=== PATIENT | male | born 1945 ===

== ENCOUNTER 2018-03-15 10:58 | Day surgery (SDC) | payer MEDICARE ==
[2018-02-03 12:38] VITALS: BMI 26.6
[2018-03-15] MEDS ORDERED: HEPARIN-NS 5,000 UNITS/500 ML 5,000 UNIT/500 ML BAG IV ONE (12:34)
[2018-03-15] MEDS ORDERED: ceFAZolin 1 gm FROZEN Premix 2 GM/100 ML ML IVPB ONE (12:42)
[2018-03-15] MEDS ORDERED: Propofol 10 mg/ml Inj (20 ML) ONE ×2 (14:01→14:33)
[2018-03-15] MEDS ORDERED: Midazolam 2 MG/2 ML VIAL ONE (14:01)
[2018-03-15] MEDS ORDERED: Thrombin Topical 20,000 Intl Units Spray Kit TOP ONE (14:44)
[2018-03-15] MEDS ORDERED: Oxycodone/Acetaminophen 5/325 mg Tab PO PRN (15:50)
--- NOTE | 2018-03-15 15:54 | PCM.SURG1 ---
Surgeon's Initial Post Op Note - Surgeon's Notes Surgeon: Dr. Hartman Mission Planner: Dr. Locke PGY3 Type of Anesthesia: General Endo Pre-Operative Diagnosis: ESRD Operative Findings: See operative dictation Post-Operative Diagnosis: ESRD Operation Performed: Brachiobasilic AVF Formation Specimen/Specimens Removed: none Estimated Blood Loss: EBL {In ML}: 30 Blood Products Given: N/A Drains Used: No Drains Post-Op Condition: Good Date of Surgery/Procedure: 03/15/18 Time of Surgery/Procedure: 15:54
[2018-03-15] MEDS ORDERED: HYDROmorphone 0.5 mg/0.5 ml ISec IVP PRN (15:59)
[2018-03-15] MEDS ORDERED: Lactated Ringer's 1,000 ML IV SCH (16:00)
[2018-03-15] MEDS ORDERED: Sodium Chloride 0.9% 1,000 ML IV SCH (16:45)
[2018-03-15 17:46] VITALS: PULSE 75; RESP 18; TEMP 97.8; O2SAT 96
[2018-03-15 18:49] VITALS: BP 153/69
--- NOTE | 2018-03-16 02:38 | OP ---
PROCEDURE DATE: 03/15/2018 PREOPERATIVE DIAGNOSIS: Renal failure. POSTOPERATIVE DIAGNOSIS: Renal failure. PROCEDURE CARRIED OUT: Arteriovenous fistula, brachiobasilic, left elbow. SURGEON: Nba Hartman Jr., MD GLASS FURNACE OPERATOR: Rogerio Locke DO ANESTHESIOLOGIST: Mr. Simon. INDICATIONS: The patient is an older middle-aged man with renal insufficiency, presently dialyzes with the use of a left jugular vein catheter who requires permanent access. OPERATIVE FINDINGS: Preoperative vein mapping did not reveal any good cephalic veins in either arm. It will be suitable for creation of the fistula. In addition, the basilic vein was the best vein. The basilic vein was dissected out and anastomosed and then spatulated in an end-to-side fashion to the adjacent brachial artery. At the end of the procedure, there was excellent flow to the fistula. There is a palpable pulse at the wrist. That was due to the patient's body habitus. It is likely that this will require mobilization with superficialization in the future. The anastomosis was carried out using loupe magnification and heparin anticoagulation. At the end of the procedure, there was a good thrill and a palpable pulse at the wrist. Blood loss to the procedure was 25 mL. After we completed the operation initially, there was still some bleeding from the wound which required reopening of the incision and reinspection at which time apparently a venous bleeder was found which was ligated from the subcutaneous tissues. Wound was then reclosed and the procedure was terminated. Operation carried out, arteriovenous fistula, brachiobasilic, left elbow. Nba Hartman Jr., MD cc: Dr. Dileep Mas, [address] [place] [address].
== END 2018-03-15 18:40 | disposition home or self-care (01) ==
LOC: C.SDS 10:58
PROVIDERS: ATTEND Surgery Vascular Surgery
DX: N18.6 End stage renal disease (principal); E03.9 Hypothyroidism, unspecified
CPT/HCPCS: 36821; J0690; J1170; J1642; J1644; J2250; J2704; J3010

== ENCOUNTER 2018-04-07 11:32 | Inpatient (IN) | payer MEDICARE ==
[2018-04-07 11:32] VITALS: BMI 26.6
[2018-04-07 12:51] LABS: BASO # 0.1 K/uL (0.0-0.2); BASO % 0.8 % (0.0-2.0); EOS # 0.3 K/uL (0.0-0.7); EOS % 3.8 % (0.0-4.0); HEMOGLOBIN 10.3 g/dL (12.0-18.0); LYMPH # 0.7 K/uL (1.0-4.3); LYMPH % 8.8 % (20.0-40.0); MEAN CELL VOLUME 92.9 fL (80.0-94.0); MEAN CORPUSCULAR HEMOGLOBIN 31.1 pg (27.0-31.0); MEAN CORPUSCULAR HGB CONC 33.5 g/dL (33.0-37.0); MEAN PLATELET VOLUME 7.7 fL (7.2-11.7); MONO % 13.7 % (0.0-10.0); NEUT # 5.4 K/uL (1.8-7.0); NEUT % 72.9 % (50.0-75.0); PLATELET COUNT 153 K/uL (130-400); RED CELL DISTRIBUTION WIDTH 17.1 % (11.5-14.5); WHITE BLOOD COUNT 7.4 K/uL (4.8-10.8)
--- NOTE | 2018-04-07 13:04 | C.PDOC ---
History Of Present Illness 72 y/o male,w/PMHx of ESRD, Chronic Kidney Disease, hypercholesterolemia, and HTN, presents to the ER complaining of left arm and hand swelling s/p surgery on 03/15/18. Patient states that he had AV Fistula surgery performed by Dr.Mc Jimenez. Denies having fever,chills, CP, and SOB. Time Seen by Provider: 04/07/18 12:02 Chief Complaint (Nursing): Upper Extremity Problem/Injury History Per: Patient History/Exam Limitations: no limitations Onset/Duration Of Symptoms: Days Current Symptoms Are (Timing): Still Present Severity: Moderate Past Medical History Reviewed: Historical Data, Nursing Documentation, Vital Signs Vital Signs: Last Vital Signs Temp 98.1 F 04/07/18 11:35 Pulse 64 04/07/18 11:35 Resp 16 04/07/18 11:35 BP 155/76 H 04/07/18 11:35 Pulse Ox 100 04/07/18 11:35 - Medical History PMH: HTN, Hypothyroidism, End Stage Renal Disease, Chronic Kidney Disease, Seizures Other Surgeries: Hx of surgeries Family History: States: No Known Family Hx - Social History Hx Alcohol Use: No Hx Substance Use: No - Immunization History Hx Tetanus Toxoid Vaccination: No Hx Influenza Vaccination: Yes Hx Pneumococcal Vaccination: Yes Review Of Systems Except As Marked, All Systems Reviewed And Found Negative. Constitutional: Negative for: Fever, Chills Cardiovascular: Negative for: Chest Pain Respiratory: Negative for: Shortness of Breath Musculoskeletal: Positive for: Other (left arm swelling) Physical Exam - Physical Exam Additional Physical Exam Comments: Constitutional: No acute distress. Head: Normocephalic. Atraumatic. Eyes: PERRL. ENT: Moist mucous membranes. Neck: Supple. Cardiovascular: Regular rate. Radial pulse 2+ bilaterally. Chest: No tenderness. Respiratory: Clear to auscultation bilaterally. GI: Soft. Nontender. Nondistended. Back: No CVA tenderness. Musculoskeletal: AV Fistula to left arm. Diffuse edema to left arm and hand. Tenderness over left antecubital fossa. Skin: No rash. Neurologic: Alert, no focal deficit. 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 Patient at high risk of subclavian DVT given common location for upper extremity DVT and has catheter in area. Dr. Steph Catherine accepts patient to his service. Initial dose lovenox administered. Disposition - Disposition Disposition: HOSPITALIZED Disposition Time: 14:30 Condition: GUARDED - Clinical Impression Clinical Impression: Edema of upper extremity - Scribe Statement The provider has reviewed the documentation as recorded by the Annie Zuñiga Provider Attestation: All medical record entries made by the Zoilaibbeatriz were at my direction and personally dictated by me. I have reviewed the chart and agree that the record accurately reflects my personal performance of the history, physical exam, medical decision making, and the department course for this patient. I have also personally directed, reviewed, and agree with the discharge instructions and disposition.
[2018-04-07 13:10] LABS: ANISOCYTOSIS SLIGHT; BASOPHIL 1 % (0-2); HYPOCHROMIC SLIGHT; LYMPHOCYTE 12 % (20-40); MONOCYTE 16 % (0-10); NEUTROPHIL 71 % (50-75); OVALOCYTES SLIGHT; PLATELET ESTIMATE NORMAL (NORMAL); POIKILOCYTOSIS SLIGHT; POLYCHROMIC SLIGHT; TOTAL CELLS COUNTED 100
[2018-04-07 13:11] LABS: TARGET CELLS SLIGHT; TEARDROP CELLS SLIGHT
[2018-04-07 13:46] LABS: ALB/GLOB RATIO 1.3 (1.0-2.1); ALBUMIN 4.4 g/dL (3.5-5.0); CALCIUM 7.6 mg/dl (8.6-10.4)
[2018-04-07] MEDS ORDERED: Enoxaparin 80 mg Syringe SC STA (14:36)
[2018-04-07] MEDS ORDERED: Enoxaparin 80 mg Syringe ONE (14:44)
--- NOTE | 2018-04-07 18:56 | CP.PCM.HP ---
Past Patient History - Infectious Disease Hx of Infectious Diseases: None - Past Medical History & Family History Past Medical History?: Yes - Past Social History Smoking Status: Never Smoked - CARDIAC Hx Hypertension: Yes - PULMONARY Hx Respiratory Disorders: No - NEUROLOGICAL Hx Seizures: Yes - RENAL Hx Chronic Kidney Disease: Yes - ENDOCRINE/METABOLIC Hx Hypothyroidism: Yes - INTEGUMENTARY Hx Dermatological Problems: No - MUSCULOSKELETAL/RHEUMATOLOGICAL Hx Musculoskeletal Disorders: No - GASTROINTESTINAL Hx Gastrointestinal Disorders: No - PSYCHIATRIC Hx Substance Use: No - SURGICAL HISTORY Hx Surgeries: Yes Other/Comment: Stefano Cath, left upper anterior chest. Non-functioning AV Fistula, right a/c - ANESTHESIA Hx Anesthesia: Yes Hx Anesthesia Reactions: No Meds Allergies/Adverse Reactions: Allergies Allergy/AdvReac Type Severity Reaction Status Date / Time No Known Allergies Allergy Verified 04/07/18 11:34 Physical Exam - Constitutional Appears: Well - Head Exam Head Exam: ATRAUMATIC, NORMAL INSPECTION, NORMOCEPHALIC - Eye Exam Eye Exam: EOMI, Normal appearance, PERRL Pupil Exam: NORMAL ACCOMODATION, PERRL - ENT Exam ENT Exam: Mucous Membranes Moist, Normal Exam - Neck Exam Neck exam: Positive for: Normal Inspection - Respiratory Exam Respiratory Exam: Decreased Breath Sounds - Cardiovascular Exam Cardiovascular Exam: REGULAR RHYTHM, +S1, +S2 - GI/Abdominal Exam GI & Abdominal Exam: Diminished Bowel Sounds, Soft - Rectal Exam Rectal Exam: Deferred Results - Vital Signs Recent Vital Signs: Last Vital Signs Temp 98.2 F 04/07/18 16:34 Pulse 60 04/07/18 16:34 Resp 20 04/07/18 16:34 BP 155/78 H 04/07/18 16:34 Pulse Ox 100 04/07/18 16:34 - Labs Result Diagrams: 04/07/18 12:43 04/07/18 12:43 Labs: Laboratory Results - last 24 hr 04/07/18 04/07/18 12:43 12:43 WBC 7.4 RBC 3.30 L Hgb 10.3 L Hct 30.6 L MCV 92.9 MCH 31.1 H MCHC 33.5 RDW 17.1 H Plt Count 153 MPV 7.7 Neut % (Auto) 72.9 Lymph % (Auto) 8.8 L [place] % (Auto) 13.7 H Eos % (Auto) 3.8 Baso % (Auto) 0.8 Neut # (Auto) 5.4 Lymph # (Auto) 0.7 L [place] # (Auto) 1.0 H Eos # (Auto) 0.3 Baso # (Auto) 0.1 Neutrophils % (Manual) 71 Lymphocytes % (Manual) 12 L Monocytes % (Manual) 16 H Basophils % (Manual) 1 Platelet Estimate Normal Polychromasia Slight Hypochromasia (manual) Slight Poikilocytosis (manual Slight Anisocytosis (manual) Slight Macrocytosis (manual) Slight Target Cells Slight Tear Drop Cells Slight Ovalocytes Slight Sodium 137 Potassium 5.9 H Chloride 97 L Carbon Dioxide 24 Anion Gap 22 H BUN 57 H Creatinine 9.0 H* Est GFR ( Amer) 7 Est GFR (Non-Af Amer) 6 Random Glucose 174 H Calcium 7.6 L Total Bilirubin 0.7 AST 30 ALT 24 Alkaline Phosphatase 116 Total Protein 8.0 Albumin 4.4 Globulin 3.5 Albumin/Globulin Ratio 1.3
--- NOTE | 2018-04-07 21:44 | CP.PCM.CON ---
History of Present Illness - History of Present Illness History of Present Illness: Vascular Surgery Consult note. Dr. Hartman service 72yo M with PMHx of ESRD, CKD, HTN, HLD, hypothyroidism, Seizures here for evaluation of left upper extremity swelling. Patient is well known to our surgical service. Patient obtained a left brachiobasilic AVF on 03/15/18. Patient has a history of right IJ permacath which has been removed. Currently, patient has a left IJ permacath and he has been getting dialysed via that access . He states that he has been having swelling in his left upper extremity which has mildly gotten worse over the past week. He denies any pain. No F/C. No CP/SOB. No abd pain. No N/V/D. no other complaints. PMHx: ESRD on HD, CKD, HTN, HLD, Hypothyroidism, seizures PSHx: Left brachiobasilic AVF (03/15), R IJ permacath (removed), L IJ permacath Family Hx: non-contributory Social Hx: Denies ETOH, denies illicit drugs NKDA Review of Systems - Review of Systems All systems: reviewed and no additional remarkable complaints except - Constitutional Constitutional: absent: Chills, Fever - EENT Eyes: absent: Blurred Vision - Cardiovascular Cardiovascular: absent: Chest Pain, Dyspnea - Respiratory Respiratory: absent: Cough, Dyspnea - Gastrointestinal Gastrointestinal: absent: Abdominal Pain, Diarrhea, Nausea, Vomiting - Genitourinary Genitourinary: absent: Dysuria - Musculoskeletal Additional comments: left upper extremity swelling - Integumentary Integumentary: Swelling Past Patient History - Infectious Disease Hx of Infectious Diseases: None - Past Medical History & Family History Past Medical History?: Yes Past Family History: Reviewed and not pertinent - Past Social History Smoking Status: Never Smoked - CARDIAC Hx Hypertension: Yes - PULMONARY Hx Respiratory Disorders: No - NEUROLOGICAL Hx Seizures: Yes - RENAL Date of Last Dialysis Treatment: 04/06/18 - ENDOCRINE/METABOLIC Hx Hypothyroidism: Yes - INTEGUMENTARY Hx Dermatological Problems: No - MUSCULOSKELETAL/RHEUMATOLOGICAL Hx Falls: No - GASTROINTESTINAL Hx Gastrointestinal Disorders: No - PSYCHIATRIC Hx Substance Use: No - SURGICAL HISTORY Hx Surgeries: Yes Other/Comment: Stefano Cath, left upper anterior chest. Non-functioning AV Fistula, right a/c - ANESTHESIA Hx Anesthesia: Yes Hx Anesthesia Reactions: No Meds Allergies/Adverse Reactions: Allergies Allergy/AdvReac Type Severity Reaction Status Date / Time No Known Allergies Allergy Verified 04/07/18 11:34 - Medications Medications: Current Medications Apixaban (Eliquis) 2.5 mg PO BID [facility] Calcium Acetate (Phoslo) 667 mg PO TIDCC [facility] Last Admin: 04/07/18 17:55 Dose: 667 mg Dorzolamide HCl (Trusopt) 0 ml OU HS [facility] Hydralazine HCl (Apresoline) 50 mg PO Q6 [facility] Last Admin: 04/07/18 17:55 Dose: 50 mg Levetiracetam (Keppra) 500 mg PO Q12 [facility] Levothyroxine Sodium (Synthroid) 125 mcg PO DAILY@0630 [facility] Timolol Maleate (Timoptic 0.5% Oph Soln) 1 drop OU HS [facility] Physical Exam - Constitutional Appears: Well, Non-toxic, No Acute Distress - Head Exam Head Exam: ATRAUMATIC, NORMAL INSPECTION, NORMOCEPHALIC - Eye Exam Eye Exam: EOMI, Normal appearance - ENT Exam ENT Exam: Mucous Membranes Moist - Respiratory Exam Respiratory Exam: NORMAL BREATHING PATTERN. absent: Accessory Muscle Use, Respiratory Distress - Cardiovascular Exam Cardiovascular Exam: absent: JVD - GI/Abdominal Exam GI & Abdominal Exam: Soft. absent: Distended, Firm, Guarding, Rebound, Rigid, Tenderness - Extremities Exam Additional comments: left upper extremity swelling distal pulses intact good palpable thrill over L AVF - Neurological Exam Neurological exam: Alert, Normal Gait, Oriented x3 - Psychiatric Exam Psychiatric exam: Normal Affect, Normal Mood Results - Vital Signs Recent Vital Signs: Last Vital Signs Temp 98.2 F 04/07/18 16:34 Pulse 60 04/07/18 16:34 Resp 20 04/07/18 16:34 BP 155/78 H 04/07/18 16:34 Pulse Ox 100 04/07/18 16:34 - Labs Result Diagrams: 04/07/18 12:43 04/07/18 12:43 Labs: Laboratory Results - last 24 hr 04/07/18 04/07/18 12:43 12:43 WBC 7.4 RBC 3.30 L Hgb 10.3 L Hct 30.6 L MCV 92.9 MCH 31.1 H MCHC 33.5 RDW 17.1 H Plt Count 153 MPV 7.7 Neut % (Auto) 72.9 Lymph % (Auto) 8.8 L [place] % (Auto) 13.7 H Eos % (Auto) 3.8 Baso % (Auto) 0.8 Neut # (Auto) 5.4 Lymph # (Auto) 0.7 L [place] # (Auto) 1.0 H Eos # (Auto) 0.3 Baso # (Auto) 0.1 Neutrophils % (Manual) 71 Lymphocytes % (Manual) 12 L Monocytes % (Manual) 16 H Basophils % (Manual) 1 Platelet Estimate Normal Polychromasia Slight Hypochromasia (manual) Slight Poikilocytosis (manual Slight Anisocytosis (manual) Slight Macrocytosis (manual) Slight Target Cells Slight Tear Drop Cells Slight Ovalocytes Slight Sodium 137 Potassium 5.9 H Chloride 97 L Carbon Dioxide 24 Anion Gap 22 H BUN 57 H Creatinine 9.0 H* Est GFR ( Amer) 7 Est GFR (Non-Af Amer) 6 Random Glucose 174 H Calcium 7.6 L Total Bilirubin 0.7 AST 30 ALT 24 Alkaline Phosphatase 116 Total Protein 8.0 Albumin 4.4 Globulin 3.5 Albumin/Globulin Ratio 1.3 Assessment & Plan - Assessment and Plan (Free Text) Assessment: 72yo M with ESRD on HD. Here with left arm swelling secondary to venous outflow from the permacath. Plan: - Patient will continue to have swelling until left IJ permacath can be removed - L AVF not mature at this time - No acute surgical intervention warranted at this time Further recs as per Dr. Minnie Jensen PGY2 Surgery
[2018-04-07] MEDS: Dorzolamide 2% Opht Sol 10ml OU SCH (21:48)
[2018-04-08] MEDS: Levothyroxine 125 MCG TAB PO SCH (06:32)
--- NOTE | 2018-04-08 17:44 | CP.PCM.PN ---
Subjective - Date & Time of Evaluation Date of Evaluation: 04/08/18 Time of Evaluation: 08:15 - Subjective Subjective: clinically same Objective - Vital Signs/Intake and Output Vital Signs (last 24 hours): Temp Pulse Resp BP Pulse Ox 97.5 F L 64 20 103/61 99 04/08/18 16:20 04/08/18 16:20 04/08/18 16:20 04/08/18 16:20 04/08/18 16:20 Intake and Output: 04/08/18 04/08/18 06:59 18:59 Intake Total 490 250 Balance 490 250 - Medications Medications: Current Medications Apixaban (Eliquis) 2.5 mg PO BID [facility] Last Admin: 04/08/18 17:43 Dose: 2.5 mg Calcium Acetate (Phoslo) 667 mg PO TIDCC [facility] Last Admin: 04/08/18 17:43 Dose: 667 mg Dorzolamide HCl (Trusopt) 0 ml OU HS [facility] Last Admin: 04/07/18 21:48 Dose: 1 drop Hydralazine HCl (Apresoline) 50 mg PO Q6 [facility] Last Admin: 04/08/18 17:43 Dose: 50 mg Levetiracetam (Keppra) 500 mg PO Q12 [facility] Last Admin: 04/08/18 09:34 Dose: 500 mg Levothyroxine Sodium (Synthroid) 125 mcg PO DAILY@0630 [facility] Last Admin: 04/08/18 06:32 Dose: 125 mcg Morphine Sulfate (Morphine) 1 mg IVP Q6H PRN PRN Reason: Pain, severe (8-10) Last Admin: 04/08/18 09:32 Dose: 1 mg Timolol Maleate (Timoptic 0.5% Ophth Soln) 1 drop OU HS [facility] Last Admin: 04/07/18 21:48 Dose: 1 drop - Labs Labs: 04/07/18 12:43 04/07/18 12:43 - Constitutional Appears: Well - Head Exam Head Exam: ATRAUMATIC, NORMAL INSPECTION, NORMOCEPHALIC - Eye Exam Eye Exam: EOMI, Normal appearance, PERRL Pupil Exam: NORMAL ACCOMODATION, PERRL - ENT Exam ENT Exam: Mucous Membranes Moist, Normal Exam - Neck Exam Neck Exam: Full ROM, Normal Inspection. absent: Lymphadenopathy - Respiratory Exam Respiratory Exam: Decreased Breath Sounds - Cardiovascular Exam Cardiovascular Exam: REGULAR RHYTHM, +S1, +S2 - GI/Abdominal Exam GI & Abdominal Exam: Soft, Diminished Bowel Sounds - Rectal Exam Rectal Exam: Deferred
[2018-04-08] MEDS: Dorzolamide 2% Opht Sol 10ml OU SCH (21:30)
[2018-04-09] MEDS: Levothyroxine 125 MCG TAB PO SCH (06:16)
--- NOTE | 2018-04-09 12:14 | CP.PCM.PN ---
Subjective - Date & Time of Evaluation Date of Evaluation: 04/09/18 Time of Evaluation: 08:15 - Subjective Subjective: clinically same Objective - Vital Signs/Intake and Output Vital Signs (last 24 hours): Temp Pulse Resp BP Pulse Ox 98.2 F 86 20 149/66 99 04/09/18 08:13 04/09/18 11:19 04/09/18 08:13 04/09/18 08:13 04/09/18 11:19 Intake and Output: 04/09/18 04/09/18 06:59 18:59 Intake Total 540 Balance 540 - Medications Medications: Current Medications Apixaban (Eliquis) 2.5 mg PO BID [facility] Last Admin: 04/09/18 10:23 Dose: 2.5 mg Calcium Acetate (Phoslo) 667 mg PO TIDCC [facility] Last Admin: 04/09/18 08:23 Dose: 667 mg Dorzolamide HCl (Trusopt) 0 ml OU [facility] Last Admin: 04/08/18 21:30 Dose: 1 drop Hydralazine HCl (Apresoline) 50 mg PO Q6 [facility] Last Admin: 04/09/18 06:16 Dose: 50 mg Levetiracetam (Keppra) 500 mg PO Q12 [facility] Last Admin: 04/09/18 10:23 Dose: 500 mg Levothyroxine Sodium (Synthroid) 125 mcg PO DAILY@0630 [facility] Last Admin: 04/09/18 06:16 Dose: 125 mcg Morphine Sulfate (Morphine) 1 mg IVP Q6H PRN PRN Reason: Pain, severe (8-10) Last Admin: 04/08/18 09:32 Dose: 1 mg Timolol Maleate (Timoptic 0.5% Ophth Soln) 1 drop OU HS [facility] Last Admin: 04/08/18 21:29 Dose: 1 drop - Labs Labs: 04/07/18 12:43 04/07/18 12:43 - Constitutional Appears: Well - Head Exam Head Exam: ATRAUMATIC, NORMAL INSPECTION, NORMOCEPHALIC - Eye Exam Eye Exam: EOMI, Normal appearance, PERRL Pupil Exam: NORMAL ACCOMODATION, PERRL - ENT Exam ENT Exam: Mucous Membranes Moist, Normal Exam - Neck Exam Neck Exam: Full ROM, Normal Inspection. absent: Lymphadenopathy - Respiratory Exam Respiratory Exam: Decreased Breath Sounds - Cardiovascular Exam Cardiovascular Exam: REGULAR RHYTHM, +S1, +S2 - GI/Abdominal Exam GI & Abdominal Exam: Soft, Diminished Bowel Sounds - Rectal Exam Rectal Exam: Deferred
[2018-04-09] MEDS: Dorzolamide 2% Opht Sol 10ml OU SCH (21:26)
[2018-04-10] MEDS ORDERED: Vancomycin 1 gm/NS 200 ml 1 GM/200 ML BAG IVPB ONE (00:30)
[2018-04-10] MEDS: Levothyroxine 125 MCG TAB PO SCH (05:37)
[2018-04-10] MEDS: Piperacill/Tazo 2.25gm in Dex 2.25 GM/50 ML BAG IVPB SCH ×3 (05:38→21:10)
--- NOTE | 2018-04-10 12:10 | CP.PCM.CON ---
History of Present Illness - History of Present Illness History of Present Illness: 72yo M here for evaluation of left upper extremity swelling. ID consulkted for this Patient obtained a left brachio-basilic AVF on 03/15/18. Patient has a history of right IJ permacath which has been removed. patient has a left IJ permacath and he has been getting dialysed via that access. He states that he has been having swelling in his left upper extremity . He denies any pain. No F/C. No CP/SOB. No abd pain. No N/V/D. no other complaints. PMHx: ESRD on HD, CKD, HTN, HLD, Hypothyroidism, seizures PSHx: Left brachiobasilic AVF (03/15), R IJ permacath (removed), L IJ permacath Family Hx: non-contributory Social Hx: Denies ETOH, denies illicit drugs NKDA Review of Systems - Review of Systems All systems: reviewed and no additional remarkable complaints except - Constitutional Constitutional: As Per HPI - EENT Eyes: absent: As Per HPI, Blind Spots, Blurred Vision, Change in Vision, Decreased Night Vision, Diplopia, Discharge, Dry Eye, Exophthalmos, Floaters, Irritation, Itchy Eyes, Loss of Peripheral Vision, Pain, Photophobia, Requires Corrective Lenses, Sees Flashes, Spots in Vision, Tunnel Vision, Other Visual Disturbances, Loss of Vision, Other Ears: absent: As Per HPI, Decreased Hearing, Ear Discharge, Ear Pain, Tinnitus, Abnormal Hearing, Disequilibrium, Dizziness, Other Nose/Mouth/Throat: absent: As Per HPI, Epistaxis, Nasal Congestion, Nasal Discharge, Nasal Obstruction, Nasal Trauma, Nose Pain, Post Nasal Drip, Sinus Pain, Sinus Pressure, Bleeding Gums, Change in Voice, Dental Pain, Dry Mouth, Dysphagia, Halitosis, Hoarsness, Lip Swelling, Mouth Lesions, Mouth Pain, Odynophagia, Sore Throat, Throat Swelling, Tongue Swelling, Facial Pain, Neck Pain, Neck Mass, Other - Cardiovascular Cardiovascular: As Per HPI - Respiratory Respiratory: absent: As Per HPI, Cough, Dyspnea, Hemoptysis, Dyspnea on Exertion, Wheezing, Snoring, Stridor, Pain on Inspiration, Chest Congestion, Excessive Mucous Production, Change in Mucous Color, Pain with Coughing, Other - Gastrointestinal Gastrointestinal: absent: As Per HPI, Abdominal Pain, Belching, Bloating, Change in Bowel Habits, Change in Stool Character, Coffee Ground Emesis, Constipation, Cramping, Diarrhea, Dyspepsia, Dysphagia, Early Satiety, Excessive Flatus, Fecal Incontinence, Heartburn, Hematemesis, Hematochezia, Loose Stools, Melena, Nausea, Odynophagia, Temesmus, Vomiting, Other - Genitourinary Genitourinary: absent: As Per HPI, Change in Urinary Stream, Difficulty Urinating, Dysuria, Flank Pain, Hematuria, Pyuria, Nocturia, Urinary Incontinence, Urinary Frequency, Urinary Hesitance, Urinary Urgency, Voiding Freq/Small Amts, Freq UTI, Hx Renal/Bladder Calculi, Hx /Renal Surgery, Bladder Distension, Other - Musculoskeletal Musculoskeletal: absent: As Per HPI, Abnormal Gait, Arthralgias, Atrophy, Back Pain, Deformity, Joint Swelling, Limited Range of Motion, Loss of Height, Muscle Cramps, Muscle Weakness, Myalgias, Neck Pain, Numbness, Radiating Pain into Limb, Stiffness, Tingling, Other - Integumentary Integumentary: As Per HPI, Skin Pain, Wounds - Neurological Neurological: absent: As Per HPI, Abnormal Gait, Abnormal Hearing, Abnormal Movements, Abnormal Speech, Behavioral Changes, Burning Sensations, Confusion, Convulsions, Disequilibrium, Dizziness, Numbness, Focal Weakness, Frequent Falls, Headaches, Lack of Coordination, Loss of Vision, Memory Loss, Paresthesias, Radicular Pain, Restless Legs, Sensory Deficit, Syncope, Tingling, Tremor, Vertigo, Weakness, Other Visual Disturbances, Other - Psychiatric Psychiatric: absent: As Per HPI, Abnormal Sleep Pattern, Anhedonia, Anxiety, Auditory Hallucinations, Behavioral Changes, Change in Appetite, Change in Libido, Confusion, Depression, Difficulty Concentrating, Hallucinations, Homicidal Ideation, Hopelessness, Irritability, Memory Loss, Mood Swings, Panic Attacks, Paranoia, Suicidal Ideation, Visual Hallucinations, Tactile Hallucinations, Other - Endocrine Endocrine: absent: As Per HPI, Change in Body Appearance, Change in Libido, Cold Intolorance, Deepening of Voice, Excessive Sweating, Fatigue, Flushing, Heat Intolorance, Increase in Ring/Shoe/Hat Size, Palpitations, Polydipsia, Polyphagia, Polyuria, Other - Hematologic/Lymphatic Hematologic: absent: As Per HPI, Easy Bleeding, Easy Bruising, Lymphadenopathy, Other Past Patient History - Infectious Disease Hx of Infectious Diseases: None - Past Medical History & Family History Past Medical History?: Yes Past Family History: Reviewed and not pertinent - Past Social History Smoking Status: Never Smoked - CARDIAC Hx Hypertension: Yes - PULMONARY Hx Respiratory Disorders: No - NEUROLOGICAL Hx Seizures: Yes - RENAL Date of Last Dialysis Treatment: 04/06/18 - ENDOCRINE/METABOLIC Hx Hypothyroidism: Yes - INTEGUMENTARY Hx Dermatological Problems: No - MUSCULOSKELETAL/RHEUMATOLOGICAL Hx Falls: No - GASTROINTESTINAL Hx Gastrointestinal Disorders: No - PSYCHIATRIC Hx Substance Use: No - SURGICAL HISTORY Hx Surgeries: Yes Other/Comment: Stefano Cath, left upper anterior chest. Non-functioning AV Fistula, right a/c - ANESTHESIA Hx Anesthesia: Yes Hx Anesthesia Reactions: No Meds Allergies/Adverse Reactions: Allergies Allergy/AdvReac Type Severity Reaction Status Date / Time No Known Allergies Allergy Verified 04/07/18 11:34 - Medications Medications: Current Medications Acetaminophen (Tylenol 325mg Tab) 650 mg PO Q6 PRN PRN Reason: 101 AND ABOVE Apixaban (Eliquis) 2.5 mg PO BID [facility] Last Admin: 04/10/18 10:36 Dose: 2.5 mg Calcium Acetate (Phoslo) 667 mg PO TIDCC [facility] Last Admin: 04/10/18 09:09 Dose: 667 mg Dorzolamide HCl (Trusopt) 0 ml OU HS [facility] Last Admin: 04/09/18 21:26 Dose: 1 drop Hydralazine HCl (Apresoline) 50 mg PO Q6 [facility] Last Admin: 04/10/18 05:37 Dose: 50 mg Piperacillin Sod/Tazobactam Sod (Zosyn 2.25 Gm Iv Premix) 2.25 gm in 50 mls @ 100 mls/hr IVPB Q8 [facility]; Protocol Last Admin: 04/10/18 05:38 Dose: 100 mls/hr Levetiracetam (Keppra) 500 mg PO Q12 [facility] Last Admin: 04/10/18 10:36 Dose: 500 mg Levothyroxine Sodium (Synthroid) 125 mcg PO DAILY@0630 [facility] Last Admin: 04/10/18 05:37 Dose: 125 mcg Morphine Sulfate (Morphine) 1 mg IVP Q6H PRN PRN Reason: Pain, severe (8-10) Last Admin: 04/08/18 09:32 Dose: 1 mg Timolol Maleate (Timoptic 0.5% Ophth Soln) 1 drop OU HS [facility] Last Admin: 04/09/18 21:26 Dose: 1 drop Physical Exam - Constitutional Appears: Non-toxic, Chronically Ill - Head Exam Head Exam: NORMOCEPHALIC - Eye Exam Eye Exam: PERRL Pupil Exam: NORMAL ACCOMODATION - ENT Exam ENT Exam: Mucous Membranes Dry - Neck Exam Neck exam: Positive for: Full Rom - Respiratory Exam Respiratory Exam: Decreased Breath Sounds - Cardiovascular Exam Cardiovascular Exam: REGULAR RHYTHM, +S1, +S2 - GI/Abdominal Exam GI & Abdominal Exam: Diminished Bowel Sounds, Soft. absent: Tenderness - Rectal Exam Rectal Exam: Deferred - Exam Exam: NORMAL INSPECTION - Back Exam Back exam: absent: CVA tenderness (L), CVA tenderness (R), paraspinal tenderness - Neurological Exam Neurological exam: Alert, CN II-XII Intact, Oriented x3, Reflexes Normal - Psychiatric Exam Psychiatric exam: Depressed - Skin Skin Exam: Erythema Results - Vital Signs Recent Vital Signs: Last Vital Signs Temp 98 F 04/10/18 08:00 Pulse 20 L 04/10/18 08:00 Resp 20 04/10/18 08:00 BP 121/71 04/10/18 08:00 Pulse Ox 98 04/10/18 08:00 - Labs Result Diagrams: 04/10/18 20:11 04/10/18 20:11 Assessment & Plan - Assessment and Plan (Free Text) Assessment: r/o infected av fistula cellulitis ESRD on HD r/o sepsis await cultures vasvcular eval IV antibiotics
--- NOTE | 2018-04-10 12:10 | VASCLAB ---
Date of service: 04/07/2018 PROCEDURE: Left Upper Extremity Venous Duplex Exam HISTORY: L arm edema, recent fistula surgery PRIORS: None. TECHNIQUE: Left upper extremity, internal jugular, subclavian, axillary, brachial, ulnar, radial, basilic and upper cephalic veins were evaluated. Flow was assessed with color Doppler, compressibility, assessment of phasic flow and augmentation response. Report prepared by Lenin Perez, TANYA, RVT FINDINGS: LEFT: 1. Internal Jugular: 1.1. Compressibility - Partial: Thrombus - Chronic : Flow - Absent : Augmentation - None: Reflux - None. 2. Subclavian: 2.1. Compressibility - : Thrombus - : Flow - : Augmentation -: Reflux - . 3. Axillary: 3.1. Compressibility - Fully compressible: Thrombus - None : Flow - Phasic: Augmentation -Normal: Reflux - None. 4. Brachial: 4.1. Compressibility - Fully compressible: Thrombus - None: Flow - Phasic: Augmentation -Normal: Reflux - None. 5. Ulnar: 5.1. Compressibility - Fully compressible: Thrombus - None: Flow - Phasic: Augmentation -Normal: Reflux - None. 6. Radial: 6.1. Compressibility - Fully compressible: Thrombus - None: Flow - Phasic: Augmentation - Normal: Reflux - None. 7. Cephalic: 7.1. Compressibility - Fully compressible: Thrombus - None: Flow - Phasic: Augmentation -Normal: Reflux - None. 8. Basilic: 8.1. Compressibility - : Thrombus - : Flow - : Augmentation -: Reflux - . OTHER FINDINGS: Left: Unable to image the left subclavian vein due to dialysis catheter in the left chest area. Dr. Brumfield notified about the findings. 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 A functional left brachial-basilic AV fistula noted with suggestive hemodynamically stenosis at the anastomosis. Normal venous flow noted in the right internal jugular and right subclavian veins.
--- NOTE | 2018-04-10 12:53 | CP.PCM.PN ---
Subjective - Date & Time of Evaluation Date of Evaluation: 04/10/18 Time of Evaluation: 07:45 - Subjective Subjective: clinically same Objective - Vital Signs/Intake and Output Vital Signs (last 24 hours): Temp Pulse Resp BP Pulse Ox 98 F 20 L 20 121/71 98 04/10/18 08:00 04/10/18 08:00 04/10/18 08:00 04/10/18 08:00 04/10/18 08:00 Intake and Output: 04/10/18 04/10/18 06:59 18:59 Intake Total 670 Balance 670 - Medications Medications: Current Medications Acetaminophen (Tylenol 325mg Tab) 650 mg PO Q6 PRN PRN Reason: 101 AND ABOVE Apixaban (Eliquis) 2.[address] [facility] Last Admin: 04/10/18 10:36 Dose: 2.5 mg Calcium Acetate (Phoslo) [address] [facility] Last Admin: 04/10/18 09:09 Dose: 667 mg Dorzolamide HCl (Trusopt) [address] [facility] Last Admin: 04/09/18 21:26 Dose: 1 drop Hydralazine HCl (Apresoline) [address] [facility] Last Admin: 04/10/18 05:37 Dose: 50 mg Piperacillin Sod/Tazobactam Sod (Zosyn 2.25 Gm Iv Premix) 2.25 gm in 50 mls @ 100 mls/hr IVPB Q8 [facility]; Protocol Last Admin: 04/10/18 05:38 Dose: 100 mls/hr Vancomycin HCl 1 gm/ Sodium (Chloride) 250 mls @ 166.7 mls/hr IVPB MWF [facility]; Protocol Levetiracetam (Keppra) [address] [facility] Last Admin: 04/10/18 10:36 Dose: 500 mg Levothyroxine Sodium (Synthroid) 125 mcg PO DAILY@0630 [facility] Last Admin: 04/10/18 05:37 Dose: 125 mcg Morphine Sulfate (Morphine) 1 mg IVP Q6H PRN PRN Reason: Pain, severe (8-10) Last Admin: 04/08/18 09:32 Dose: 1 mg Timolol Maleate (Timoptic 0.5% Oph Soln) 1 drop OU HS [facility] Last Admin: 04/09/18 21:26 Dose: 1 drop - Labs Labs: 12/07/18 12:43 04/07/18 12:43 - Constitutional Appears: Well - Head Exam Head Exam: ATRAUMATIC, NORMAL INSPECTION, NORMOCEPHALIC - Eye Exam Eye Exam: EOMI, Normal appearance, PERRL Pupil Exam: NORMAL ACCOMODATION, PERRL - ENT Exam ENT Exam: Mucous Membranes Moist, Normal Exam - Neck Exam Neck Exam: Full ROM, Normal Inspection. absent: Lymphadenopathy - Respiratory Exam Respiratory Exam: Decreased Breath Sounds - Cardiovascular Exam Cardiovascular Exam: REGULAR RHYTHM, +S1, +S2 - GI/Abdominal Exam GI & Abdominal Exam: Soft, Diminished Bowel Sounds - Rectal Exam Rectal Exam: Deferred
--- NOTE | 2018-04-10 18:44 | CP.PCM.CON ---
History of Present Illness - History of Present Illness History of Present Illness: pt is seen and examined, full consult is dictated #[id number] Past Patient History - Infectious Disease Hx of Infectious Diseases: None - Past Medical History & Family History Past Medical History?: Yes Past Family History: Reviewed and not pertinent - Past Social History Smoking Status: Never Smoked - CARDIAC Hx Hypertension: Yes - PULMONARY Hx Respiratory Disorders: No - NEUROLOGICAL Hx Seizures: Yes - RENAL Date of Last Dialysis Treatment: 04/06/18 - ENDOCRINE/METABOLIC Hx Hypothyroidism: Yes - INTEGUMENTARY Hx Dermatological Problems: No - MUSCULOSKELETAL/RHEUMATOLOGICAL Hx Falls: No - GASTROINTESTINAL Hx Gastrointestinal Disorders: No - PSYCHIATRIC Hx Substance Use: No - SURGICAL HISTORY Hx Surgeries: Yes Other/Comment: Stefano Cath, left upper anterior chest. Non-functioning AV Fistula, right a/c - ANESTHESIA Hx Anesthesia: Yes Hx Anesthesia Reactions: No Meds Allergies/Adverse Reactions: Allergies Allergy/AdvReac Type Severity Reaction Status Date / Time No Known Allergies Allergy Verified 04/07/18 11:34 - Medications Medications: Current Medications Acetaminophen (Tylenol 325mg Tab) 650 mg PO Q6 PRN PRN Reason: 101 AND ABOVE Apixaban (Eliquis) 2.5 mg PO BID [facility] Last Admin: 04/10/18 17:36 Dose: 2.5 mg Calcium Acetate (Phoslo) 667 mg PO TIDCC [facility] Last Admin: 04/10/18 17:36 Dose: 667 mg Dorzolamide HCl (Trusopt) 0 ml OU HS [facility] Last Admin: 04/09/18 21:26 Dose: 1 drop Hydralazine HCl (Apresoline) 50 mg PO Q6 [facility] Last Admin: 04/10/18 17:37 Dose: Not Given Piperacillin Sod/Tazobactam Sod (Zosyn 2.25 Gm Iv Premix) 2.25 gm in 50 mls @ 100 mls/hr IVPB Q8 [facility]; Protocol Last Admin: 04/10/18 14:25 Dose: 100 mls/hr Vancomycin HCl 1 gm/ Sodium (Chloride) 250 mls @ 166.7 mls/hr IVPB MWF [facility]; Protocol Levetiracetam (Keppra) 500 mg PO Q12 [facility] Last Admin: 04/10/18 10:36 Dose: 500 mg Levothyroxine Sodium (Synthroid) 125 mcg PO DAILY@0630 [facility] Last Admin: 04/10/18 05:37 Dose: 125 mcg Morphine Sulfate (Morphine) 1 mg IVP Q6H PRN PRN Reason: Pain, severe (8-10) Last Admin: 04/08/18 09:32 Dose: 1 mg Timolol Maleate (Timoptic 0.5% Ophth Soln) 1 drop OU HS [facility] Last Admin: 04/09/18 21:26 Dose: 1 drop Results - Vital Signs Recent Vital Signs: Last Vital Signs Temp 98.2 F 04/10/18 16:00 Pulse 20 L 04/10/18 16:00 Resp 82 H 04/10/18 16:00 BP 97/53 L 04/10/18 16:00 Pulse Ox 96 04/10/18 16:00 - Labs Result Diagrams: 04/10/18 20:11 04/10/18 20:11
[2018-04-10 20:15] LABS: HEMOGLOBIN 11.3 g/dL (12.0-18.0); MEAN CORPUSCULAR HEMOGLOBIN 29.9 pg (27.0-31.0); MEAN CORPUSCULAR HGB CONC 33.4 g/dL (33.0-37.0); MEAN PLATELET VOLUME 7.4 fL (7.2-11.7); RBC 3.79 Mil/uL (4.40-5.90); RED CELL DISTRIBUTION WIDTH 17.5 % (11.5-14.5); WHITE BLOOD COUNT 5.9 K/uL (4.8-10.8)
[2018-04-10 20:16] LABS: MEAN CELL VOLUME 89.7 fL (80.0-94.0)
[2018-04-10 20:23] LABS: INR 1.4; PROTHROMBIN TIME 15.6 SECONDS (9.7-12.2)
[2018-04-10 20:32] LABS: CALCIUM 8.3 mg/dl (8.6-10.4)
[2018-04-10] MEDS: Dorzolamide 2% Opht Sol 10ml OU SCH (21:09)
[2018-04-10] MEDS ORDERED: Sod Polystyrene Sulf 15 gm/60 ml Susp PO ONE (22:19)
--- NOTE | 2018-04-11 04:42 | CON ---
DATE: 04/10/2018 LOCATION: The patient is located in room 361, bed B. REQUESTED BY: Shahida Catherine MD REASON FOR EVALUATION: End-stage renal disease, for continuation of hemodialysis and left upper extremity swelling. HISTORY OF PRESENT ILLNESS: Mr. Yeung is a 72-year-old elderly male with a past medical history significant for longstanding hypertension, diabetes, end-stage renal disease with UTI and renal failure with perinephric abscess, multiple abdominal abscess, and empyema was admitted in the [facility] about more than a year ago and requiring right nephrectomy, multiple abdominal drains, and chest tube placement on the right side. He was started on hemodialysis three times a week; Tuesday, , Tuesday, and also the patient had multiple admissions to the [facility] for sepsis, MRSA, status post removal of right upper extremity AV graft and multiple PermCath placements who was evaluated by Dr. Hartman, status post left upper extremity AV fistula placement about a month ago. Now the patient was complaining of swelling of the left upper extremity and admitted for further evaluation and found to have a chronic right intrajugular thrombosis. Duplex of the left upper extremity, impression: Chronic deep vein thrombosis of the left intrajugular vein with severe reduction of the venous return and functional left brachial and basilic AV fistula noted would suggest to hemodynamically stenosis at the anastomosis. The patient denies any chest pain or palpitation. Denies any fever or cough. No abdominal pain. No nausea, vomiting, or diarrhea. The patient claims his swelling is slightly better today. PAST MEDICAL HISTORY: Significant for longstanding hypertension, diabetes, end-stage renal disease, multiple sepsis, and multiple PermCath placements. PAST SURGICAL HISTORY: Status post removal of the right upper extremity AV graft secondary to infected AV graft and multiple PermCath placements. ALLERGIES: NO KNOWN DRUG ALLERGIES. SOCIAL HISTORY: No smoking, no alcohol, no drugs. FAMILY HISTORY: Not significant. He has a daughter and he also has very supportive sisters. CURRENT MEDICATIONS: Include as follows: Hydralazine 50 mg p.o. every 6 hours, Eliquis 2.5 mg p.o. b.i.d., on hold, Keppra 500 mg p.o. every 12 hours, morphine 1 mg IV every 6 hours p.r.n., PhosLo 667 mg p.o. t.i.d., Synthroid 125 mcg p.o. daily, timolol drops, Trusopt eyedrops, Tylenol, vancomycin 1 g IV piggyback three times a week, and Zosyn 2.25 g IV every 8 hours. REVIEW OF SYSTEMS: Significant for left upper extremity swelling and also positive for thrombosis of the left intrajugular vein. All other review of systems are reviewed and are negative. PHYSICAL EXAMINATION: VITAL SIGNS: As follows: Blood pressure 116/68, pulse 89 per minute, temperature 98.2, and saturation 96%. Height 5 feet 8 inches, weight is 169 pounds. GENERAL: Mr. Yeung is a 72-year-old elderly male, moderately built, moderately nourished, not in acute distress. HEENT: Pupils normal and reactive to light and accommodation. Conjunctivae pink. Sclerae anicteric. Tongue is moist. NECK: Trachea is midline. LUNGS: Symmetric on both sides. Bilateral breath sounds present. Clear to auscultation. CVS: [place] at the fifth intercostal space, midclavicular line. S1, S2 audible. No murmur or gallop. ABDOMEN: Normal in appearance, soft, tympanic. No guarding. No hepatosplenomegaly. ESOL INSTRUCTOR: The patient is alert, awake, and oriented x3. Nonfocal neuro examination. Cranial nerves II through XII grossly intact. Sensory and motor system is within normal limits. EXTREMITIES: No cyanosis, no clubbing, no edema. LABORATORY DATA: Include as follows: As of 04/07/2018, WBC 7.4, hemoglobin 10.3, hematocrit 30.6, and platelets 153. As of 04/10/2018, WBC is 5.9, hemoglobin 11.3, hematocrit is 34, platelets 155. PT 15.6, PTT 40. Sodium 145, potassium 5.8, chloride 93, CO2 26, BUN 75, creatinine 13.1, glucose 183, calcium 8.3, phosphorus 5.4, and magnesium 2.3. ASSESSMENT AND PLAN: In summary, Mr. Yeung is a 72-year-old elderly male with a history of hypertension, diabetes, end-stage renal disease, seizure disorder, hypothyroidism, multiple PermCath placements, status post removal of the right upper extremity arteriovenous graft about a year ago, was admitted with swelling of the left upper extremity, status post left upper extremity arteriovenous fistula. 1. End-stage renal disease. Continue hemodialysis three times a week. 2. Hypertension. Blood pressure is stable. Continue his current medication. 3. Left intrajugular vein thrombosis, chronic. 4. Edema of the left upper extremity secondary to stenosis at anastomotic site. 5. Hyperkalemia. We will give Kayexalate 30 g p.o. x1 dose now and repeat basic metabolic profile in a.m. and we will schedule for hemodialysis in a.m. Continue to follow with Vascular Surgery. Continue hydralazine. Continue Keppra, Zosyn, vancomycin, and levothyroxine. We will follow with you. Thank you for allowing me to participate in your patient's care. Larry Falk MD
[2018-04-11] MEDS: Piperacill/Tazo 2.25gm in Dex 2.25 GM/50 ML BAG IVPB SCH ×3 (05:35→21:28)
[2018-04-11] MEDS: Levothyroxine 125 MCG TAB PO SCH (05:36)
[2018-04-11 09:15] LABS: HEMOGLOBIN 10.4 g/dL (12.0-18.0); MEAN CELL VOLUME 89.7 fL (80.0-94.0); MEAN CORPUSCULAR HEMOGLOBIN 29.1 pg (27.0-31.0); MEAN CORPUSCULAR HGB CONC 32.4 g/dL (33.0-37.0); MEAN PLATELET VOLUME 7.7 fL (7.2-11.7); RBC 3.57 Mil/uL (4.40-5.90); WHITE BLOOD COUNT 6.3 K/uL (4.8-10.8)
[2018-04-11 09:46] LABS: CALCIUM 7.9 mg/dl (8.6-10.4)
[2018-04-11] MEDS ORDERED: Albumin Human 25% (12.5 gm/50 ml) IV ONE (09:52)
--- NOTE | 2018-04-11 11:57 | CP.PCM.PN ---
Subjective - Date & Time of Evaluation Date of Evaluation: 04/11/18 Time of Evaluation: 11:56 - Subjective Subjective: pt is seen and examined during hd, follow up consult is dictated #[id number] uf goal is zero start ivf D5NS at 42 ml/hr Objective - Vital Signs/Intake and Output Vital Signs (last 24 hours): Temp Pulse Resp BP Pulse Ox 97.6 F 74 20 83/47 L 99 04/11/18 09:00 04/11/18 09:00 04/11/18 09:00 04/11/18 11:30 04/11/18 09:00 Intake and Output: 04/11/18 04/11/18 06:59 18:59 Intake Total 50 Balance 50 - Medications Medications: Current Medications Acetaminophen (Tylenol 325mg Tab) 650 mg PO Q6 PRN PRN Reason: 101 AND ABOVE Apixaban (Eliquis) 2.5 mg PO BID [facility] Last Admin: 04/10/18 17:36 Dose: 2.5 mg Calcium Acetate (Phoslo) 667 mg PO TIDCC [facility] Last Admin: 04/11/18 08:00 Dose: Not Given Dorzolamide HCl (Trusopt) 0 ml OU HS [facility] Last Admin: 04/10/18 21:09 Dose: 1 drop Hydralazine HCl (Apresoline) 50 mg PO Q6 [facility] Last Admin: 04/11/18 05:49 Dose: Not Given Piperacillin Sod/Tazobactam Sod (Zosyn 2.25 Gm Iv Premix) 2.25 gm in 50 mls @ 100 mls/hr IVPB Q8 [facility]; Protocol Last Admin: 04/11/18 05:35 Dose: 100 mls/hr Levetiracetam (Keppra) 500 mg PO Q12 [facility] Last Admin: 04/11/18 11:12 Dose: Not Given Levothyroxine Sodium (Synthroid) 125 mcg PO DAILY@0630 [facility] Last Admin: 04/11/18 05:36 Dose: 125 mcg Morphine Sulfate (Morphine) 1 mg IVP Q6H PRN PRN Reason: Pain, severe (8-10) Last Admin: 04/08/18 09:32 Dose: 1 mg Timolol Maleate (Timoptic 0.5% Oph Soln) 1 drop OU HS [facility] Last Admin: 04/10/18 21:09 Dose: 1 drop - Labs Labs: 04/11/18 09:11 04/11/18 09:11 PT 15.6 SECONDS (9.7-12.2) H 04/10/18 20:11 INR 1.4 04/10/18 20:11 APTT 40 SECONDS (21-34) H 04/10/18 20:11
[2018-04-11] MEDS ORDERED: Dextrose 5%/0.9% NS 1,000 ML IV ONE (11:59)
--- NOTE | 2018-04-11 12:03 | CP.PCM.PN ---
Subjective - Date & Time of Evaluation Date of Evaluation: 04/11/18 Time of Evaluation: 08:00 - Subjective Subjective: has rash cultures pending for OR today left arm still swollen- needs angioplasty Objective - Vital Signs/Intake and Output Vital Signs (last 24 hours): Temp Pulse Resp BP Pulse Ox 97.6 F 74 20 83/47 L 99 04/11/18 09:00 04/11/18 09:00 04/11/18 09:00 04/11/18 11:30 04/11/18 09:00 Intake and Output: 04/11/18 04/11/18 06:59 18:59 Intake Total 50 Balance 50 - Medications Medications: Current Medications Acetaminophen (Tylenol 325mg Tab) 650 mg PO Q6 PRN PRN Reason: 101 AND ABOVE Apixaban (Eliquis) 2.5 mg PO BID [facility] Last Admin: 04/10/18 17:36 Dose: 2.5 mg Calcium Acetate (Phoslo) 667 mg PO TIDCC [facility] Last Admin: 04/11/18 08:00 Dose: Not Given Dorzolamide HCl (Trusopt) 0 ml OU HS [facility] Last Admin: 04/10/18 21:09 Dose: 1 drop Hydralazine HCl (Apresoline) 50 mg PO Q6 [facility] Last Admin: 04/11/18 05:49 Dose: Not Given Piperacillin Sod/Tazobactam Sod (Zosyn 2.25 Gm Iv Premix) 2.25 gm in 50 mls @ 100 mls/hr IVPB Q8 [facility]; Protocol Last Admin: 04/11/18 05:35 Dose: 100 mls/hr Dextrose/Sodium Chloride (Dextrose 5%/0.9% Ns 1000 Ml) 1,000 mls @ 42 mls/hr IV .[id number] ONE Stop: 04/12/18 11:47 Daptomycin 400 mg/ Sodium (Chloride) 100 mls @ 100 mls/hr IV Q48H [facility]; Protocol Stop: 04/16/18 12:01 Levetiracetam (Keppra) 500 mg PO Q12 [facility] Last Admin: 04/11/18 11:12 Dose: Not Given Levothyroxine Sodium (Synthroid) 125 mcg PO DAILY@0630 [facility] Last Admin: 04/11/18 05:36 Dose: 125 mcg Morphine Sulfate (Morphine) 1 mg IVP Q6H PRN PRN Reason: Pain, severe (8-10) Last Admin: 04/08/18 09:32 Dose: 1 mg Timolol Maleate (Timoptic 0.5% Ophth Soln) 1 drop OU HS [facility] Last Admin: 04/10/18 21:09 Dose: 1 drop - Labs Labs: 04/11/18 09:11 04/11/18 09:11 PT 15.6 SECONDS (9.7-12.2) H 04/10/18 20:11 INR 1.4 04/10/18 20:11 APTT 40 SECONDS (21-34) H 04/10/18 20:11 - Constitutional Appears: Non-toxic, Chronically Ill - Head Exam Head Exam: NORMOCEPHALIC - Eye Exam Eye Exam: absent: Scleral icterus - ENT Exam ENT Exam: Mucous Membranes Dry - Neck Exam Neck Exam: absent: Lymphadenopathy - Respiratory Exam Respiratory Exam: Decreased Breath Sounds - Cardiovascular Exam Cardiovascular Exam: REGULAR RHYTHM - GI/Abdominal Exam GI & Abdominal Exam: Distended - Rectal Exam Rectal Exam: Deferred - Exam Exam: NORMAL INSPECTION Assessment and Plan - Assessment and Plan (Free Text) Assessment: malfunction av fistula cellulitis LUE ESRD on HD r/o sepsis allergy Vanco
[2018-04-11] MEDS ORDERED: Lidocaine Hydrochloride 0 ML INJ ONE (12:26)
[2018-04-11] MEDS ORDERED: HEPARIN-NS 5,000 UNITS/500 ML 5,000 UNIT/500 ML BAG IV ONE ×2 (12:26→14:13)
[2018-04-11] MEDS ORDERED: Iohexol 240 (50 ml) ONE (12:26)
[2018-04-11] MEDS ORDERED: Iohexol 240 200 ML ONE (12:35)
[2018-04-11] MEDS ORDERED: Lidocaine Hydrochloride 20 ML INJ ONE (13:34)
[2018-04-11] MEDS ORDERED: Midazolam 2 MG/2 ML VIAL ONE (14:21)
[2018-04-11] MEDS ORDERED: HYDROmorphone 0.5 mg/0.5 ml ISec IVP PRN (15:26)
--- NOTE | 2018-04-11 15:34 | PCM.SURG1 ---
Surgeon's Initial Post Op Note - Surgeon's Notes Surgeon: Minnie Industrial Sweeper Cleaner: [id number] Type of Anesthesia: Local Pre-Operative Diagnosis: Central vein stenosis, ESRD Operative Findings: Central vein stenosis Post-Operative Diagnosis: Central vein stenosis, ESRD Operation Performed: L AVF angiogram. Removal of L IJ permacath. Central vein balloon angioplasty. R femoral permacath placement Specimen/Specimens Removed: N/A Estimated Blood Loss: EBL {In ML}: 100 Blood Products Given: N/A Drains Used: No Drains Post-Op Condition: Good Date of Surgery/Procedure: 04/11/18 Time of Surgery/Procedure: 13:15
--- NOTE | 2018-04-11 16:11 | CP.PCM.PN ---
Subjective - Date & Time of Evaluation Date of Evaluation: 04/11/18 Time of Evaluation: 07:30 - Subjective Subjective: clinically same Objective - Vital Signs/Intake and Output Vital Signs (last 24 hours): Temp Pulse Resp BP Pulse Ox 97.9 F 81 20 106/54 L 98 04/11/18 12:00 04/11/18 12:00 04/11/18 12:00 04/11/18 12:00 04/11/18 12:00 Intake and Output: 04/11/18 04/11/18 06:59 18:59 Intake Total 50 200 Balance 50 200 - Medications Medications: Current Medications Acetaminophen (Tylenol 325mg Tab) 650 mg PO Q6 PRN PRN Reason: 101 AND ABOVE Apixaban (Eliquis) 2.5 mg PO BID [facility] Last Admin: 04/10/18 17:36 Dose: 2.5 mg Calcium Acetate (Phoslo) 667 mg PO TIDCC [facility] Last Admin: 04/11/18 12:02 Dose: Not Given Dorzolamide HCl (Trusopt) 0 ml OU HS [facility] Last Admin: 04/10/18 21:09 Dose: 1 drop Hydralazine HCl (Apresoline) 50 mg PO Q6 [facility] Last Admin: 04/11/18 12:01 Dose: Not Given Hydromorphone HCl (Dilaudid) 0.5 mg IVP Q15M PRN PRN Reason: Pain, severe (8-10) Stop: 04/11/18 17:26 Piperacillin Sod/Tazobactam Sod (Zosyn 2.25 Gm Iv Premix) 2.25 gm in 50 mls @ 100 mls/hr IVPB Q8 [facility]; Protocol Last Admin: 04/11/18 13:35 Dose: 50 mls Dextrose/Sodium Chloride (Dextrose 5%/0.9% Ns 1000 Ml) 1,000 mls @ 42 mls/hr IV .[id number] ONE Stop: 04/12/18 11:47 Last Admin: 04/11/18 12:18 Dose: 42 mls/hr Daptomycin 400 mg/ Sodium (Chloride) 100 mls @ 100 mls/hr IV Q48H [facility]; Protocol Stop: 04/16/18 14:01 Last Admin: 04/11/18 14:49 Dose: Not Given Levetiracetam (Keppra) 500 mg PO Q12 [facility] Last Admin: 04/11/18 11:12 Dose: Not Given Levothyroxine Sodium (Synthroid) 125 mcg PO DAILY@0630 [facility] Last Admin: 04/11/18 05:36 Dose: 125 mcg Morphine Sulfate (Morphine) 1 mg IVP Q6H PRN PRN Reason: Pain, severe (8-10) Last Admin: 04/08/18 09:32 Dose: 1 mg Timolol Maleate (Timoptic 0.5% Oph Soln) 1 drop OU HS [facility] Last Admin: 04/10/18 21:09 Dose: 1 drop - Labs Labs: 04/11/18 09:11 04/11/18 09:11 PT 15.6 SECONDS (9.7-12.2) H 04/10/18 20:11 INR 1.4 04/10/18 20:11 APTT 40 SECONDS (21-34) H 04/10/18 20:11 - Constitutional Appears: Well - Head Exam Head Exam: ATRAUMATIC, NORMAL INSPECTION, NORMOCEPHALIC - Eye Exam Eye Exam: EOMI, Normal appearance, PERRL Pupil Exam: NORMAL ACCOMODATION, PERRL - ENT Exam ENT Exam: Mucous Membranes Moist, Normal Exam - Neck Exam Neck Exam: Full ROM, Normal Inspection. absent: Lymphadenopathy - Respiratory Exam Respiratory Exam: Decreased Breath Sounds - Cardiovascular Exam Cardiovascular Exam: REGULAR RHYTHM, +S1, +S2 - GI/Abdominal Exam GI & Abdominal Exam: Soft, Diminished Bowel Sounds - Rectal Exam Rectal Exam: Deferred
--- NOTE | 2018-04-11 16:59 | RAD ---
Date of service: 04/11/2018 PROCEDURE: Intraoperative Fluoroscopy. HISTORY: RENAL FAILURE/CENTRAL VEIN STENOSIS FINDINGS: Fluoroscopic assistance was provided. Fluoroscopy time = 466.8 sec. Radiation dose = 185.76 mGy-cm. Please refer to the operative report from NIGHAT Agrawal.
[2018-04-11] MEDS: Dorzolamide 2% Opht Sol 10ml OU SCH (21:27)
--- NOTE | 2018-04-12 03:58 | OP ---
PROCEDURE DATE: 04/11/2018 PREOPERATIVE DIAGNOSES: Central vein stenosis, renal failure, left arm edema. PROCEDURES CARRIED OUT: 1. Fistulogram, left arm. 2. Removal of Perm-A-Cath, left jugular vein. 3. Balloon angioplasty of left subclavian and innominate vein. 4. Placement of right femoral Perm-A-Cath. SURGEON: Nba Hartman Jr., MD FORM SETTER/DRIVER: Mario Richardson DO ANESTHESIOLOGIST: Mr. Tapia INDICATIONS: The patient is a 72-year-old man with multiple medical problems with renal failure and central vein stenosis. Additionally, we examined under ultrasound and could not identify the jugular vein on the right side. I made no attempts of placing a catheter via right side. We then using micropuncture the technique, punctured the left arm fistula and carried out fistulogram, which showed that the catheter was occluding the left innominate vein. Subsequently, we placed a wire through this. We then placed another wire from the left arm, and we were able to cross the area of the stenosis to remove the catheter from the neck. The bleeding was controlled with pressure. We then dilated with an 8-mm balloon. There were some residual stenoses, which were eventually dilated again with an 8-mm balloon after multiple dilatations. After this had been done, we then removed the catheter from the left arm and removed the catheter from the neck. We then placed a right femoral catheter using a narrow type catheter. Using ultrasound guidance, we punctured the right femoral vein. We then placed a catheter centrally, placed the sheath dilator, through level of just below the renal vein and was in good position with good flow. We then secured it to the skin. The procedure was terminated. Blood loss for the procedure is over 100 mL. Images taken from the area showed that there was an occlusion after removal of the catheter. It was an occlusion of the central vein from the subclavian to the innominate. Subsequent films after balloon dilatations of this residual waste which have to be dilated and eventually, the entire left subclavian to the innominate vein was widely dilated with an 8-mm balloon. Subsequent film showed brisk flow and the procedure then terminated. Pressure was applied to the sites. OPERATIONS CARRIED OUT: 1. Fistulogram of left arm, which showed widely patent fistula. 2. Removal of left jugular Perm-A-Cath. 3. Balloon angioplasty of left subclavian and innominate vein. 4. Placement of right femoral Perm-A-Cath. Nba Hartman Jr., MD
[2018-04-12] MEDS: Piperacill/Tazo 2.25gm in Dex 2.25 GM/50 ML BAG IVPB SCH ×3 (05:06→21:36)
[2018-04-12] MEDS: Levothyroxine 125 MCG TAB PO SCH (05:48)
--- NOTE | 2018-04-12 09:31 | RAD ---
Date of service: 04/11/2018 PROCEDURE: Intraoperative Fluoroscopy. HISTORY: RENAL FAILURE FINDINGS: Fluoroscopic assistance was provided. Fluoroscopy time = 466.8 sec. Radiation dose = 185.76 mGy. Please refer to the operative report from NIGHAT Agrawal.
[2018-04-12] MEDS ORDERED: MethylPREDNISolone 40 mg Vial IV ONE ×2 (10:07→11:30)
[2018-04-12] MEDS ORDERED: DiphenhydrAMINE 50 mg/ml Inj IVP STA ×2 (10:07→11:21)
--- NOTE | 2018-04-12 11:56 | CP.PCM.PN ---
Subjective - Date & Time of Evaluation Date of Evaluation: 04/12/18 Time of Evaluation: 11:55 - Subjective Subjective: pt is seen and examined, follow up consult is dictated #[id number] for hd in am Objective - Vital Signs/Intake and Output Vital Signs (last 24 hours): Temp Pulse Resp BP Pulse Ox 97.4 F L 96 H 20 97/56 L 96 04/12/18 08:00 04/12/18 08:00 04/12/18 08:00 04/12/18 08:00 04/12/18 08:00 Intake and Output: 04/12/18 04/12/18 06:59 18:59 Intake Total 465 Balance 465 - Medications Medications: Current Medications Acetaminophen (Tylenol 325mg Tab) 650 mg PO Q6 PRN PRN Reason: 101 AND ABOVE Apixaban (Eliquis) 2.5 mg PO BID [facility] Last Admin: 04/10/18 17:36 Dose: 2.5 mg Calcium Acetate (Phoslo) 667 mg PO TIDCC [facility] Last Admin: 04/12/18 08:43 Dose: 667 mg Dorzolamide HCl (Trusopt) 0 ml OU HS [facility] Last Admin: 04/11/18 21:27 Dose: 1 drop Hydralazine HCl (Apresoline) 50 mg PO Q6 [facility] Last Admin: 04/12/18 06:15 Dose: Not Given Piperacillin Sod/Tazobactam Sod (Zosyn 2.25 Gm Iv Premix) 2.25 gm in 50 mls @ 100 mls/hr IVPB Q8 [facility]; Protocol Last Admin: 04/12/18 05:06 Dose: 100 mls/hr Daptomycin 400 mg/ Sodium (Chloride) 100 mls @ 100 mls/hr IV Q48H [facility]; Protocol Stop: 04/16/18 14:01 Last Admin: 04/11/18 16:40 Dose: 100 mls/hr Levetiracetam (Keppra) 500 mg PO Q12 [facility] Last Admin: 04/12/18 11:14 Dose: 500 mg Levothyroxine Sodium (Synthroid) 125 mcg PO DAILY@0630 [facility] Last Admin: 04/12/18 05:48 Dose: 125 mcg Methylprednisolone (Solu-Medrol) 40 mg IVP Q8H [facility] Timolol Maleate [facility] 1 drop OU HS [facility] Last Admin: 04/11/18 21:27 Dose: 1 drop - Labs Labs: 04/11/18 09:11 04/11/18 09:11 PT 15.6 SECONDS (9.7-12.2) H 04/10/18 20:11 INR 1.4 04/10/18 20:11 APTT 40 SECONDS (21-34) H 04/10/18 20:11
--- NOTE | 2018-04-12 13:06 | CP.PCM.PN ---
Subjective - Date & Time of Evaluation Date of Evaluation: 04/12/18 Time of Evaluation: 08:00 - Subjective Subjective: Medicine Progress Note for Dr. Steph Catherine: Patient was seen and examined at bedside in the AM. No acute events overnight. Patient denies complaints. Objective - Vital Signs/Intake and Output Vital Signs (last 24 hours): Temp Pulse Resp BP Pulse Ox 97.4 F L 96 H 20 97/56 L 96 04/12/18 08:00 04/12/18 08:00 04/12/18 08:00 04/12/18 08:00 04/12/18 08:00 Intake and Output: 04/12/18 04/12/18 06:59 18:59 Intake Total 465 Balance 465 - Medications Medications: Current Medications Acetaminophen (Tylenol 325mg Tab) 650 mg PO Q6 PRN PRN Reason: 101 AND ABOVE Apixaban (Eliquis) 2.5 mg PO BID [facility] Last Admin: 04/10/18 17:36 Dose: 2.5 mg Calcium Acetate (Phoslo) 667 mg PO TIDCC [facility] Last Admin: 04/12/18 12:19 Dose: Not Given Dorzolamide HCl (Trusopt) 0 ml OU HS [facility] Last Admin: 04/11/18 21:27 Dose: 1 drop Hydralazine HCl (Apresoline) 50 mg PO Q6 [facility] Last Admin: 04/12/18 12:19 Dose: Not Given Piperacillin Sod/Tazobactam Sod (Zosyn 2.25 Gm Iv Premix) 2.25 gm in 50 mls @ 100 mls/hr IVPB Q8 [facility]; Protocol Last Admin: 04/12/18 05:06 Dose: 100 mls/hr Daptomycin 400 mg/ Sodium (Chloride) 100 mls @ 100 mls/hr IV Q48H [facility]; Protocol Stop: 04/16/18 14:01 Last Admin: 04/11/18 16:40 Dose: 100 mls/hr Levetiracetam (Keppra) 500 mg PO Q12 [facility] Last Admin: 04/12/18 11:14 Dose: 500 mg Levothyroxine Sodium (Synthroid) 125 mcg PO DAILY@0630 [facility] Last Admin: 04/12/18 05:48 Dose: 125 mcg Methylprednisolone (Solu-Medrol) 40 mg IVP Q8H [facility] Timolol Maleate (Timoptic 0.5% Ophth Soln) 1 drop OU HS [facility] Last Admin: 04/11/18 21:27 Dose: 1 drop - Labs Labs: 04/11/18 09:11 04/11/18 09:11 PT 15.6 SECONDS (9.7-12.2) H 04/10/18 20:11 INR 1.4 04/10/18 20:11 APTT 40 SECONDS (21-34) H 04/10/18 20:11 - Constitutional Appears: No Acute Distress - Head Exam Head Exam: ATRAUMATIC, NORMAL INSPECTION - Eye Exam Eye Exam: EOMI Additional comments: bilateral orbital edema - Respiratory Exam Respiratory Exam: Clear to Ausculation Bilateral, NORMAL BREATHING PATTERN - Cardiovascular Exam Cardiovascular Exam: REGULAR RHYTHM, +S1, +S2 - GI/Abdominal Exam GI & Abdominal Exam: Soft, Normal Bowel Sounds. 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 A functional left brachial basilic AV fistula noted with suggestive hemodynamically stenosis at the anastomosis. Normal venous flow noted in the right internal jugular and right subclavian veins. - s/p (04/12/18): L AVF angiogram. Removal of L IJ permacath. Central vein balloon angioplasty. R femoral permacath placement - Vascular Surgery Consult: Dr. Hartman --> help appreciated ESRD - on hemodialysis - Nephrology Consult: Dr. Falk --> help appreciatd - Dextrose @42mls/hr Febrile - resolved - ID Consult: Dr. Morales --> help appreciated - Daptomycin 400mg IV q8h - Zosyn 2.25gm IV q8h - blood culture: negative Orbital Swelling - s/p Vanco - new allergy - Benadryl - Solumedrol 40mg IV q8h History of HTN - Hydralazine 50mg po q6h History of Hypothyroid - Synthroid 125mcg po daily Prophylaxis - Eliquis 2.5mg PO bid - hold - Renal Diet - Physical Therapy All management per Dr. Steph Catherine
--- NOTE | 2018-04-12 15:10 | CP.PCM.PN ---
Subjective - Date & Time of Evaluation Date of Evaluation: 04/12/18 Time of Evaluation: 09:45 - Subjective Subjective: Surgery Progress note. Dr. Hartman Pt seen and examined at bedside. No acute events overnight. States that he still has some left upper extremity swelling. Denies any new complaints. Objective - Vital Signs/Intake and Output Vital Signs (last 24 hours): Temp Pulse Resp BP Pulse Ox 97.4 F L 96 H 20 97/56 L 96 04/12/18 08:00 04/12/18 08:00 04/12/18 08:00 04/12/18 08:00 04/12/18 08:00 Intake and Output: 04/12/18 04/12/18 06:59 18:59 Intake Total 465 656 Balance 465 656 - Medications Medications: Current Medications Acetaminophen (Tylenol 325mg Tab) 650 mg PO Q6 PRN PRN Reason: 101 AND ABOVE Apixaban (Eliquis) 2.5 mg PO BID [facility] Last Admin: 04/10/18 17:36 Dose: 2.5 mg Calcium Acetate (Phoslo) 667 mg PO TIDCC [facility] Last Admin: 04/12/18 12:19 Dose: Not Given Dorzolamide HCl (Trusopt) 0 ml OU HS [facility] Last Admin: 04/11/18 21:27 Dose: 1 drop Hydralazine HCl (Apresoline) 50 mg PO Q6 [facility] Last Admin: 04/12/18 12:19 Dose: Not Given Piperacillin Sod/Tazobactam Sod (Zosyn 2.25 Gm Iv Premix) 2.25 gm in 50 mls @ 100 mls/hr IVPB Q8 [facility]; Protocol Last Admin: 04/12/18 14:44 Dose: 100 mls/hr Daptomycin 400 mg/ Sodium (Chloride) 100 mls @ 100 mls/hr IV Q48H [facility]; Protocol Stop: 04/16/18 14:01 Last Admin: 04/11/18 16:40 Dose: 100 mls/hr Levetiracetam (Keppra) 500 mg PO Q12 [facility] Last Admin: 04/12/18 11:14 Dose: 500 mg Levothyroxine Sodium (Synthroid) 125 mcg PO DAILY@0630 [facility] Last Admin: 04/12/18 05:48 Dose: 125 mcg Methylprednisolone (Solu-Medrol) 40 mg IVP Q8H [facility] Timolol Maleate (Timoptic 0.5% Ophth Soln) 1 drop OU HS [facility] Last Admin: 04/11/18 21:27 Dose: 1 drop - Labs Labs: 04/11/18 09:11 04/11/18 09:11 PT 15.6 SECONDS (9.7-12.2) H 04/10/18 20:11 INR 1.4 04/10/18 20:11 APTT 40 SECONDS (21-34) H 04/10/18 20:11 - Constitutional Appears: Well, Non-toxic, No Acute Distress - Head Exam Head Exam: ATRAUMATIC, NORMAL INSPECTION, NORMOCEPHALIC - Eye Exam Eye Exam: EOMI, Normal appearance - ENT Exam ENT Exam: Mucous Membranes Moist - Respiratory Exam Respiratory Exam: NORMAL BREATHING PATTERN. absent: Accessory Muscle Use, Respiratory Distress - Cardiovascular Exam Cardiovascular Exam: absent: JVD - Extremities Exam Additional comments: mild diffuse swelling of left upper extremity - Neurological Exam Neurological Exam: Alert, Awake, Oriented x3 - Psychiatric Exam Psychiatric exam: Normal Affect, Normal Mood - Skin Skin Exam: Dry, Intact, Normal Color, Warm Assessment and Plan - Assessment and Plan (Free Text) Assessment: 72 yo M with central vein stenosis. S/p Left AVF angiogram, removal of L IJ Permacath, central vein balloon angioplasty, placement of right femoral vein permacath. POD 1 Plan: - Continue CHIQUITA to left upper extremity - Keep left upper extremity elevated; Seated and upright during the day. - No further surgical intervention warranted at this time
--- NOTE | 2018-04-12 16:01 | PN ---
DATE: 04/11/2018 LOCATION: The patient is located in room 361, bed B. REQUESTED BY: Shahida Catherine MD REASON FOR FOLLOWUP: End-stage renal disease, continuation of hemodialysis and left upper extremity swelling. SUBJECTIVE: The patient is a 72-year-old elderly male with a past medical history significant for longstanding hypertension; diabetes; end-stage renal disease, status post right nephrectomy for a perinephric abscess; history of empyema, status post chest tube placement about a year ago; multiple admissions to [facility] for sepsis; status post removal of the right upper extremity AV graft and questionable central stenosis; who was seen by Dr. Hartman recently, and the patient underwent left upper extremity AV fistula about 2 months ago. Now, the patient was admitted with left upper extremity swelling. The patient was seen and examined during dialysis this morning with hypotension with a blood pressure of about 70 to 80 during dialysis. The patient was given bolus normal saline about 800 mL and the blood pressure improved to 106 systolic. The patient denies any complaints. No chest pain. No palpitation. No fever. No cough. No abdominal pain. No nausea or vomiting. No diarrhea. The patient was also started on IV fluids of D5 normal saline at 42 mL per hour at the end of the hemodialysis treatment. The patient denies any complaints. PHYSICAL EXAMINATION VITAL SIGNS: His vital signs during dialysis at noontime, blood pressure 106/54, pulse 81, respirations 20, temperature 97.9, saturation 98%. Height 5 feet 8 inches, weight is 169 pounds. GENERAL: Mr. Yeung is a 72-year-old elderly male, moderately built, moderately nourished, not in acute distress. HEENT: Pupils are normal and reactive to light and accommodation. Conjunctivae pink. Sclerae anicteric. Tongue is moist. NECK: Trachea is midline. LUNGS: Symmetric on both sides. Bilateral breath sounds present. Clear to auscultation. CARDIOVASCULAR SYSTEM: Dunlap at the fifth intercostal space, midclavicular line. S1 and S2 audible. No murmur or gallop. ABDOMEN: Normal in appearance. Soft, tympanic. No guarding. No rigidity. No hepatosplenomegaly. CENTRAL NERVOUS SYSTEM: The patient is alert, awake, oriented x3. Nonfocal neuro examination. Cranial nerves II through XII grossly intact. Sensory and motor system is within normal limits. EXTREMITIES: No cyanosis, no clubbing, no edema. SKIN: Turgor is poor. MEDICATIONS: His current medications include as follows, hydralazine 50 mg p.o. q.6 hours, daptomycin 400 mg q.48 hours, IV fluids D5 normal saline at 42 mL per hour, Eliquis on hold, Keppra 400 mg p.o. q.12 hours, morphine sulfate 1 mg IV q.6 hours, PhosLo 667 mg p.o. t.i.d., Synthroid 125 mcg p.o. daily, timolol 0.5% ophthalmic solution, Trusopt, Tylenol and Zosyn 2.25 g IV q.8 hours. LABORATORY DATA: Include as follows, blood culture x2 negative day 1 as of 04/10/2018. Other laboratory data include as follows, as of 04/11/2018, WBC 6.3, hemoglobin 10.4, hematocrit 32.1, platelets 142. Sodium 136, potassium 5.4, chloride 95, CO2 of 24, BUN 77, creatinine 12.5, glucose 137, calcium 7.9. In summary, Mr. Yeung is a 72-year-old elderly male with a history of hypertension, diabetes, hypothyroidism, seizure disorder, end-stage renal disease, status post left upper extremity arteriovenous fistula with swelling of the left upper extremity and found to have left internal jugular vein thrombosis, who was scheduled for the intervention by Vascular Surgery after hemodialysis today. 1. End-stage renal disease. Continue hemodialysis three times a week. The patient has zero ultrafiltration today, and the patient was also given IV fluids for hypotension during hemodialysis, about 800 mL. Continue IV fluids D5 normal saline at 42 mL per hour. 2. Hypotension. Hold blood pressure medicines, no hydralazine, hold for systolic blood pressure less than 120. Continue all his current medications, Keppra and Synthroid. Continue antibiotics as per Dr. Morales. Discussed with the nurse practitioner. Discussed with Dr. Morales regarding THE PATIENT'S ALLERGY TO VANCOMYCIN IN THE PAST. Vancomycin was discontinued this morning and started on daptomycin. Follow up with Vascular Surgery. Thank you for allowing me to participate in your patient's care. Larry Falk MD [facility] # [phone]
--- NOTE | 2018-04-12 18:04 | CP.PCM.PN ---
Subjective - Date & Time of Evaluation Date of Evaluation: 04/12/18 Time of Evaluation: 07:45 - Subjective Subjective: clinically same Objective - Vital Signs/Intake and Output Vital Signs (last 24 hours): Temp Pulse Resp BP Pulse Ox 97.5 F L 85 20 124/58 L 96 04/12/18 16:00 04/12/18 16:00 04/12/18 16:00 04/12/18 16:00 04/12/18 16:00 Intake and Output: 04/12/18 04/12/18 06:59 18:59 Intake Total 465 656 Balance 465 656 - Medications Medications: Current Medications Acetaminophen (Tylenol 325mg Tab) 650 mg PO Q6 PRN PRN Reason: 101 AND ABOVE Apixaban (Eliquis) 2.5 mg PO BID [facility] Last Admin: 04/10/18 17:36 Dose: 2.5 mg Calcium Acetate (Phoslo) 667 mg PO TIDCC [facility] Last Admin: 04/12/18 17:51 Dose: 667 mg Dorzolamide HCl (Trusopt) 0 ml OU HS YANG Last Admin: 04/11/18 21:27 Dose: 1 drop Hydralazine HCl (Apresoline) 50 mg PO Q6 [facility] Last Admin: 04/12/18 17:51 Dose: 50 mg Piperacillin Sod/Tazobactam Sod (Zosyn 2.25 Gm Iv Premix) 2.25 gm in 50 mls @ 100 mls/hr IVPB Q8 [facility]; Protocol Last Admin: 04/12/18 14:44 Dose: 100 mls/hr Daptomycin 400 mg/ Sodium (Chloride) 100 mls @ 100 mls/hr IV Q48H [facility]; Protocol Stop: 04/16/18 14:01 Last Admin: 04/11/18 16:40 Dose: 100 mls/hr Levetiracetam (Keppra) 500 mg PO Q12 [facility] Last Admin: 04/12/18 11:14 Dose: 500 mg Levothyroxine Sodium (Synthroid) 125 mcg PO DAILY@0630 [facility] Last Admin: 04/12/18 05:48 Dose: 125 mcg Methylprednisolone (Solu-Medrol) 40 mg IVP Q8H [facility] Timolol Maleate (Timoptic 0.5% [facility]) 1 drop OU HS YANG Last Admin: 04/11/18 21:27 Dose: 1 drop - Labs Labs: 04/11/18 09:11 04/11/18 09:11 PT 15.6 SECONDS (9.7-12.2) H 04/10/18 20:11 INR 1.4 04/10/18 20:11 APTT 40 SECONDS (21-34) H 04/10/18 20:11 - Constitutional Appears: Well - Head Exam Head Exam: ATRAUMATIC, NORMAL INSPECTION, NORMOCEPHALIC - Eye Exam Eye Exam: EOMI, Normal appearance, PERRL Pupil Exam: NORMAL ACCOMODATION, PERRL - ENT Exam ENT Exam: Mucous Membranes Moist, Normal Exam - Neck Exam Neck Exam: Full ROM, Normal Inspection. absent: Lymphadenopathy - Respiratory Exam Respiratory Exam: Decreased Breath Sounds - Cardiovascular Exam Cardiovascular Exam: REGULAR RHYTHM, +S1, +S2 - GI/Abdominal Exam GI & Abdominal Exam: Soft, Diminished Bowel Sounds - Rectal Exam Rectal Exam: Deferred
--- NOTE | 2018-04-12 19:02 | CP.PCM.PN ---
Subjective - Date & Time of Evaluation Date of Evaluation: 04/12/18 Time of Evaluation: 07:00 - Subjective Subjective: events noted less swelkling Objective - Vital Signs/Intake and Output Vital Signs (last 24 hours): Temp Pulse Resp BP Pulse Ox 97.5 F L 85 20 124/58 L 96 04/12/18 16:00 04/12/18 16:00 04/12/18 16:00 04/12/18 16:00 04/12/18 16:00 Intake and Output: 04/12/18 04/13/18 18:59 06:59 Intake Total 656 Balance 656 - Medications Medications: Current Medications Acetaminophen (Tylenol 325mg Tab) 650 mg PO Q6 PRN PRN Reason: 101 AND ABOVE Apixaban (Eliquis) 2.5 mg PO BID [facility] Last Admin: 04/10/18 17:36 Dose: 2.5 mg Calcium Acetate (Phoslo) 667 mg PO TIDCC [facility] Last Admin: 04/12/18 17:51 Dose: 667 mg Dorzolamide HCl (Trusopt) 0 ml OU HS YANG Last Admin: 04/11/18 21:27 Dose: 1 drop Hydralazine HCl (Apresoline) 50 mg PO Q6 [facility] Last Admin: 04/12/18 17:51 Dose: 50 mg Piperacillin Sod/Tazobactam Sod (Zosyn 2.25 Gm Iv Premix) 2.25 gm in 50 mls @ 100 mls/hr IVPB Q8 [facility]; Protocol Last Admin: 04/12/18 14:44 Dose: 100 mls/hr Daptomycin 400 mg/ Sodium (Chloride) 100 mls @ 100 mls/hr IV Q48H [facility]; Protocol Stop: 04/16/18 14:01 Last Admin: 04/11/18 16:40 Dose: 100 mls/hr Levetiracetam (Keppra) 500 mg PO Q12 [facility] Last Admin: 04/12/18 11:14 Dose: 500 mg Levothyroxine Sodium (Synthroid) 125 mcg PO DAILY@0630 [facility] Last Admin: 04/12/18 05:48 Dose: 125 mcg Methylprednisolone (Solu-Medrol) 40 mg IVP Q8H [facility] Timolol Maleate (Timoptic 0.5% [facility]) 1 drop OU HS YANG Last Admin: 04/11/18 21:27 Dose: 1 drop - Labs Labs: 04/11/18 09:11 04/11/18 09:11 PT 15.6 SECONDS (9.7-12.2) H 04/10/18 20:11 INR 1.4 04/10/18 20:11 APTT 40 SECONDS (21-34) H 04/10/18 20:11 - Constitutional Appears: Non-toxic, Younger Than Stated Age - Head Exam Head Exam: NORMOCEPHALIC - Eye Exam Eye Exam: absent: Scleral icterus - ENT Exam ENT Exam: Mucous Membranes Dry - Neck Exam Neck Exam: absent: Lymphadenopathy - Respiratory Exam Respiratory Exam: Decreased Breath Sounds - Cardiovascular Exam Cardiovascular Exam: REGULAR RHYTHM - GI/Abdominal Exam GI & Abdominal Exam: Distended, Soft - Rectal Exam Rectal Exam: Deferred - Exam Exam: NORMAL INSPECTION Assessment and Plan - Assessment and Plan (Free Text) Assessment: cont iv antibiotics for cellulitis LUE vascular on board cont hd
[2018-04-12] MEDS: MethylPREDNISolone 40 mg Vial IVP SCH (20:00)
[2018-04-12] MEDS: Dorzolamide 2% Opht Sol 10ml OU SCH (21:35)
--- NOTE | 2018-04-13 02:17 | PN ---
DATE: 04/12/2018 LOCATION: Room 361, bed B. REQUESTED BY: Shahida Catherine MD REASON FOR FOLLOWUP: End-stage renal disease, continuation of the hemodialysis. HISTORY OF PRESENT ILLNESS: Mr. Yeung is a 72-year-old elderly male with a past medical history significant for longstanding hypertension, diabetes, end-stage renal disease, multiple admissions for sepsis, and status post removal of the right upper extremity AV graft and multiple PermCath who was admitted with the chief complaint of swelling of the left upper extremity after left upper extremity AV fistula placement recently, about ____. The patient was found to have left internal jugular vein thrombosis. The patient underwent dilatation of the left innominate vein and also removal of the left internal jugular PermCath and placement of the right femoral vein catheter placement. The patient is complaining of swelling of the face and also redness of the face. The patient is slightly drowsy today, not in distress. PHYSICAL EXAMINATION: VITAL SIGNS: Blood pressure this morning 97/56, pulse 96, respirations 20, temperature 97.4, saturation 96%. Height 5 feet 8 inches and weight is 169 pounds. GENERAL: Mr. Yeung is a 72-year-old elderly male, moderately built, moderately nourished, not in acute distress. HEENT: Pupils are normal and both upper and lower lids were again swollen and redness of the face. No thyroid enlargement. LUNGS: Symmetric on both sides. Bilateral breath sounds present. Clear to auscultation. CARDIOVASCULAR: [place] at the fifth intercostal space, midclavicular area. S1 and S2 audible. No murmur or gallop. ABDOMEN: Normal in appearance. Soft, tympanic. No guarding. No rigidity. No hepatosplenomegaly. CENTRAL NERVOUS SYSTEM: The patient is alert, awake, oriented x1 to 2. Sensory and motor system is grossly within normal limits. EXTREMITIES: No cyanosis. No clubbing. No edema. CURRENT MEDICATIONS: Include as follows, hydralazine 50 mg p.o. every 6 hours, daptomycin 400 mg every 48 hours, Eliquis on hold, Keppra 400 mg every 12 hours, PhosLo 667 mg p.o. t.i.d., Solu-Medrol 40 mg IV every 8 hours, levothyroxine 125 mcg p.o. daily, timolol, Trusopt, Tylenol and Zosyn 2.25 g IV every 8 hours. LABORATORY DATA: Include as follows, as of 04/11/2018: WBC 6.3, hemoglobin 10.4, hematocrit 32.1, platelets 142. Sodium 136, potassium 5.4, chloride 95, CO2 of 24, BUN 77, creatinine 12.5, glucose 137, calcium 7.9. Blood cultures x2 negative as of 04/10/2018. ASSESSMENT AND PLAN: In summary, Mr. Yeung is a 72-year-old elderly male with a history of hypertension, diabetes, end-stage renal disease, hypothyroidism, seizure disorder who was admitted with left upper extremity swelling. 1. End-stage renal disease. Continue hemodialysis three times a week Tuesday, , Tuesday. 2. Status post removal of the left internal jugular PermCath and status post placement of a new femoral vein PermCath. 3. Continue Solu-Medrol. 4. Continue Benadryl p.r.n. 5. We will follow up with you. 6. Continue Keppra and Synthroid. 7. Hemodialysis in a.m. Thank you for allowing me to participate in your patient's care. Larry Falk MD
[2018-04-13] MEDS: MethylPREDNISolone 40 mg Vial IVP SCH ×2 (05:11→13:45)
[2018-04-13] MEDS: Piperacill/Tazo 2.25gm in Dex 2.25 GM/50 ML BAG IVPB SCH ×2 (05:12→13:45)
[2018-04-13] MEDS: Levothyroxine 125 MCG TAB PO SCH (05:30)
[2018-04-13 10:17] VITALS: O2SAT 98
[2018-04-13 13:08] VITALS: BP 133/72; PULSE 85; RESP 16; TEMP 97.3
--- NOTE | 2018-04-13 17:25 | CP.PCM.PN ---
Subjective - Date & Time of Evaluation Date of Evaluation: 04/13/18 Time of Evaluation: 07:45 - Subjective Subjective: clinically same Objective - Vital Signs/Intake and Output Vital Signs (last 24 hours): Temp Pulse Resp BP Pulse Ox 97.3 F L 85 16 133/72 98 04/13/18 12:40 04/13/18 12:40 04/13/18 12:40 04/13/18 12:40 04/13/18 12:40 Intake and Output: 04/13/18 04/13/18 06:59 18:59 Intake Total 550 240 Balance 550 240 - Medications Medications: Current Medications Acetaminophen (Tylenol 325mg Tab) 650 mg PO Q6 PRN PRN Reason: 101 AND ABOVE Apixaban (Eliquis) 2.5 mg PO BID [facility] Last Admin: 04/10/18 17:36 Dose: 2.5 mg Calcium Acetate (Phoslo) 667 mg PO TIDCC [facility] Last Admin: 04/13/18 13:45 Dose: Not Given Dorzolamide HCl (Trusopt) 0 ml OU HS YANG Last Admin: 04/12/18 21:35 Dose: 1 drop Hydralazine HCl (Apresoline) 50 mg PO Q6 [facility] Last Admin: 04/13/18 13:45 Dose: Not Given Piperacillin Sod/Tazobactam Sod (Zosyn 2.25 Gm Iv Premix) 2.25 gm in 50 mls @ 100 mls/hr IVPB Q8 [facility]; Protocol Last Admin: 04/13/18 13:45 Dose: Not Given Daptomycin 400 mg/ Sodium (Chloride) 100 mls @ 100 mls/hr IV Q48H [facility]; Protocol Stop: 04/16/18 14:01 Last Admin: 04/13/18 13:45 Dose: Not Given Levetiracetam (Keppra) 500 mg PO Q12 [facility] Last Admin: 04/13/18 13:45 Dose: Not Given Levothyroxine Sodium (Synthroid) 125 mcg PO DAILY@0630 [facility] Last Admin: 04/13/18 05:30 Dose: 125 mcg Methylprednisolone (Solu-Medrol) 40 mg IVP Q8H [facility] Last Admin: 04/13/18 13:45 Dose: Not Given Timolol Maleate (Timoptic 0.5% [facility]) 1 drop OU HS YANG Last Admin: 04/12/18 21:33 Dose: 1 drop - Labs Labs: 04/11/18 09:11 04/11/18 09:11 PT 15.6 SECONDS (9.7-12.2) H 04/10/18 20:11 INR 1.4 04/10/18 20:11 APTT 40 SECONDS (21-34) H 04/10/18 20:11 - Constitutional Appears: Well - Head Exam Head Exam: ATRAUMATIC, NORMAL INSPECTION, NORMOCEPHALIC - Eye Exam Eye Exam: EOMI, Normal appearance, PERRL Pupil Exam: NORMAL ACCOMODATION, PERRL - ENT Exam ENT Exam: Mucous Membranes Moist, Normal Exam - Neck Exam Neck Exam: Full ROM, Normal Inspection. absent: Lymphadenopathy - Respiratory Exam Respiratory Exam: Decreased Breath Sounds - Cardiovascular Exam Cardiovascular Exam: REGULAR RHYTHM, +S1, +S2 - GI/Abdominal Exam GI & Abdominal Exam: Soft, Diminished Bowel Sounds - Rectal Exam Rectal Exam: Deferred
== END 2018-04-13 16:30 | disposition left against medical advice (07) | DRG 252 ==
LOC: C.ER 11:32 → C.3T 14:37
PROVIDERS: ADMIT Internal Medicine Nephrology; ATTEND Internal Medicine Nephrology
PROC: 05763ZZ Dilation of Left Subclavian Vein, Percutaneous Approach (ICD-10-PCS; 2018-04-11)
PROC: 05PY33Z Removal of Infusion Device from Upper Vein, Percutaneous Approach (ICD-10-PCS; 2018-04-11)
PROC: 06HY33Z Insertion of Infusion Device into Lower Vein, Percutaneous Approach (ICD-10-PCS; 2018-04-11)
PROC: B51W1ZZ Fluoroscopy of Dialysis Shunt/Fistula using Low Osmolar Contrast (ICD-10-PCS; 2018-04-11)
PROC: 5A1D70Z Performance of Urinary Filtration, Intermittent, Less than 6 Hours Per Day (ICD-10-PCS; 2018-04-11)
PROC: 05743ZZ Dilation of Left Innominate Vein, Percutaneous Approach (ICD-10-PCS; principal; 2018-04-11 11:45)
DX: I82.C12 Acute embolism and thrombosis of left internal jugular vein (principal); N18.6 End stage renal disease; T82.858A Stenosis of other vascular prosthetic devices, implants and grafts, initial encounter; I12.0 Hypertensive chronic kidney disease with stage 5 chronic kidney disease or end stage renal disease; L03.114 Cellulitis of left upper limb; I82.290 Acute embolism and thrombosis of other thoracic veins; Y82.8 Other medical devices associated with adverse incidents; E78.00 Pure hypercholesterolemia, unspecified; Z99.2 Dependence on renal dialysis; E03.9 Hypothyroidism, unspecified; E87.5 Hyperkalemia; Z88.1 Allergy status to other antibiotic agents; G40.909 Epilepsy, unspecified, not intractable, without status epilepticus; I95.3 Hypotension of hemodialysis

== ENCOUNTER 2018-06-16 09:41 | Day surgery (SDC) | payer MEDICARE ==
[2018-06-16 10:36] VITALS: BP 152/80; PULSE 91; RESP 20; TEMP 97.7; O2SAT 98
[2018-06-16 11:08] LABS: CALCIUM 8.4 mg/dl (8.6-10.4)
[2018-06-16] MEDS ORDERED: Lidocaine 2% MPF (5 ml) Inj ONE (11:25)
[2018-06-16] MEDS ORDERED: ceFAZolin 1 gm in NS 0 GM/0 ML BAG IVPB ONE (11:25)
[2018-06-16] MEDS ORDERED: Iohexol 240 200 ML ONE (11:25)
[2018-06-16] MEDS ORDERED: HEPARIN-NS 5,000 UNITS/500 ML 5,000 UNIT/500 ML BAG IV ONE (11:31)
== END 2018-06-16 13:45 | disposition still patient (30) ==
LOC: C.SDS 09:41 → C.SPRAD 09:41 → C.SDS 13:45
PROVIDERS: ATTEND Surgery Vascular Surgery
DX: T82.858A Stenosis of other vascular prosthetic devices, implants and grafts, initial encounter (principal); N19 Unspecified kidney failure
CPT/HCPCS: 36903; 72HRC

== ENCOUNTER 2018-06-16 13:47 | Inpatient (IN) | payer MEDICARE ==
[2018-06-16 13:47] VITALS: BMI 26.6
[2018-06-16] MEDS ORDERED: (Novolin R) Insulin Human Regular 100 units/ml vial IV ONE (14:20)
[2018-06-16] MEDS ORDERED: Calcium Gluconate 4.65 MEQ in Dextrose 5% In Water 100 ML IV ONE (14:20)
[2018-06-16] MEDS ORDERED: Dextrose 50% SYRINGE Inj (50 ml) IV STA ×2 (14:20→15:59)
[2018-06-16] MEDS ORDERED: Sod Polystyrene Sulf 15 gm/60 ml Susp PO ONE (14:21)
--- NOTE | 2018-06-16 14:22 | C.PDOC ---
History Of Present Illness 77yo male, with history of ESRD currently on hemodialysis (T, Th, Sat), sent to ER from same day surgery for evaluation due to hyperkalemia. Patient was in the surgical suite and his pre-op labs indicated hyperkalemia at 7.0. Patient currently denies any chest pain, shortness of breath, headache, nausea or vomiting. PMD: Dr. Mas Time Seen by Provider: 06/16/18 14:09 Chief Complaint (Nursing): Abnormal Labs History Per: Patient History/Exam Limitations: no limitations Past Medical History Reviewed: Historical Data, Nursing Documentation, Vital Signs Vital Signs: Last Vital Signs Temp 98.0 F 06/16/18 14:16 Pulse 85 06/16/18 14:16 Resp 13 06/16/18 14:16 BP Pulse Ox 96 06/16/18 14:16 - Medical History PMH: HTN, Hypothyroidism, End Stage Renal Disease, Chronic Kidney Disease, Seizures Surgical History: No Surg Hx - [facility] Procedures (04/07/18) DILATION OF LEFT INNOMINATE VEIN, PERCUTANEOUS APPROACH (04/07/18) DILATION OF LEFT SUBCLAVIAN VEIN, PERCUTANEOUS APPROACH (04/07/18) FLUOROSCOPY OF DIALYSIS SHUNT/FISTULA USING L OSM CONTRAST (04/07/18) INSERTION OF INFUSION DEVICE INTO LOWER VEIN, PERC APPROACH (04/07/18) REMOVAL OF INFUSION DEVICE FROM UPPER VEIN, PERC APPROACH (04/07/18) Family History: States: No Known Family Hx - Social History Hx Alcohol Use: No Hx Substance Use: No - Immunization History Hx Tetanus Toxoid Vaccination: No Hx Influenza Vaccination: No Hx Pneumococcal Vaccination: No Review Of Systems Except As Marked, All Systems Reviewed And Found Negative. Constitutional: Negative for: Fever, Chills Cardiovascular: Negative for: Chest Pain Respiratory: Negative for: Shortness of Breath Gastrointestinal: Negative for: Abdominal Pain Neurological: Negative for: Headache Physical Exam - Physical Exam Appears: Non-toxic, No Acute Distress Skin: Normal Color Head: Atraumatic, Normacephalic Eye(s): bilateral: Normal Inspection Neck: Normal ROM, Supple Chest: Symmetrical Cardiovascular: Rhythm Regular Respiratory: Normal Breath Sounds Gastrointestinal/Abdominal: Normal Exam, Soft Back: Normal Inspection Extremity: Normal ROM, No Tenderness, No Deformity, Swelling (left forearm up to bicep area), Other (dialysis port on left anterior thigh) Neurological/Psych: Oriented x3 ED Course And Treatment ECG: Interpreted By Me, Viewed By Me ECG Rhythm: Sinus Rhythm Interpretation Of ECG: Normal interval, left axis deviation, nonspecific t-wave changes Rate From EC O2 Sat by Pulse Oximetry: 96 (RA) Pulse Ox Interpretation: Normal Medical Decision Making Medical Decision Making: Impression: 72yo male with hyperkalemia Plan: Patient given IV dextrose, IV calcium gluconate, IV insulin and PO kayexalate [address] Steph Catherine, patient admitted to telemetry under his service Disposition Discussed With DrErickson: Christoph Catherine Counseled Patient/Family Regarding: Studies Performed, Diagnosis - Disposition Disposition: HOSPITALIZED Disposition Time: 14:22 Condition: FAIR Forms: [facility] (Georgian) - Clinical Impression Clinical Impression: Hyperkalemia - Scribe Statement The provider has reviewed the documentation as recorded by the Annie Oswald Provider Attestation: All medical record entries made by the Zoilaibbeatriz were at my direction and personally dictated by me. I have reviewed the chart and agree that the record accurately reflects my personal performance of the history, physical exam, medical decision making, and the department course for this patient. I have also personally directed, reviewed, and agree with the discharge instructions and disposition.
[2018-06-16] MEDS ORDERED: Sod Polystyrene Sulf 15 gm/60 ml Susp ONE (14:36)
[2018-06-16] MEDS ORDERED: Dextrose 50% SYRINGE Inj (50 ml) ONE ×2 (14:37→15:56)
[2018-06-16] MEDS ORDERED: Calcium Gluconate 4.65 mEq/10 ml Inj ONE (14:37)
[2018-06-16] MEDS ORDERED: (Novolin R) Insulin Human Regular 100 units/ml vial ONE (14:37)
[2018-06-16 17:15] LABS: CALCIUM 7.9 mg/dl (8.6-10.4)
--- NOTE | 2018-06-16 18:42 | CP.PCM.HP ---
Past Patient History - Infectious Disease Hx of Infectious Diseases: None - Past Medical History & Family History Past Medical History?: Yes - Past Social History Smoking Status: Never Smoked - CARDIAC Hx Hypertension: Yes - PULMONARY Hx Respiratory Disorders: No - NEUROLOGICAL Hx Seizures: Yes - RENAL Hx Chronic Kidney Disease: Yes - ENDOCRINE/METABOLIC Hx Hypothyroidism: Yes - INTEGUMENTARY Hx Dermatological Problems: No - MUSCULOSKELETAL/RHEUMATOLOGICAL Hx Musculoskeletal Disorders: No Hx Falls: No - GASTROINTESTINAL Hx Gastrointestinal Disorders: No - PSYCHIATRIC Hx Substance Use: No - SURGICAL HISTORY Hx Surgeries: Yes Other/Comment: Stefano Cath, left upper anterior chest. Non-functioning AV Fistula, right a/c - ANESTHESIA Hx Anesthesia: Yes Hx Anesthesia Reactions: No Meds Allergies/Adverse Reactions: Allergies Allergy/AdvReac Type Severity Reaction Status Date / Time vancomycin AdvReac Severe RASH Verified 06/16/18 14:20 Physical Exam - Constitutional Appears: Well - Head Exam Head Exam: ATRAUMATIC, NORMAL INSPECTION, NORMOCEPHALIC - Eye Exam Eye Exam: EOMI, Normal appearance, PERRL Pupil Exam: NORMAL ACCOMODATION, PERRL - ENT Exam ENT Exam: Mucous Membranes Moist, Normal Exam - Neck Exam Neck exam: Positive for: Normal Inspection - Respiratory Exam Respiratory Exam: Decreased Breath Sounds - Cardiovascular Exam Cardiovascular Exam: REGULAR RHYTHM, +S1, +S2 - GI/Abdominal Exam GI & Abdominal Exam: Diminished Bowel Sounds, Soft - Rectal Exam Rectal Exam: Deferred Results - Vital Signs Recent Vital Signs: Last Vital Signs Temp 98.7 F 06/16/18 18:08 Pulse 96 H 06/16/18 18:08 Resp 16 06/16/18 18:08 BP 190/108 H 06/16/18 18:08 Pulse Ox 100 06/16/18 18:08 - Labs Result Diagrams: 06/16/18 16:55 Labs: Laboratory Results - last 24 hr 06/16/18 06/16/18 06/16/18 15:37 15:38 15:50 Sodium Potassium Chloride Carbon Dioxide Anion Gap BUN Creatinine Est GFR ( Amer) Est GFR (Non-Af Amer) POC Glucose (mg/dL) 42 L 39 L 34 L* Random Glucose Calcium 06/16/18 06/16/18 06/16/18 15:53 16:09 16:55 Sodium 137 Potassium 5.0 Chloride 100 Carbon Dioxide 22 Anion Gap 20 BUN 80 H Creatinine 10.8 H* Est GFR ( Amer) 6 Est GFR (Non-Af Amer) 5 POC Glucose (mg/dL) 44 L 169 H Random Glucose 138 H D Calcium 7.9 L
--- NOTE | 2018-06-16 21:55 | CP.PCM.CON ---
History of Present Illness - History of Present Illness History of Present Illness: pt is seen and examined, full consult is dictated #[id number] 1. esrd 2.hyperkalemia 3.htn 4.dm 5. hypothyroidim 6. seizers s/p rx for hyperkalemia, d50,insulin, kayexalate, ca.gluconate for hd in am Past Patient History - Infectious Disease Hx of Infectious Diseases: None - Past Medical History & Family History Past Medical History?: Yes - Past Social History Smoking Status: Never Smoked - CARDIAC Hx Hypertension: Yes - PULMONARY Hx Respiratory Disorders: No - NEUROLOGICAL Hx Seizures: Yes - RENAL Hx Chronic Kidney Disease: Yes - ENDOCRINE/METABOLIC Hx Hypothyroidism: Yes - INTEGUMENTARY Hx Dermatological Problems: No - MUSCULOSKELETAL/RHEUMATOLOGICAL Hx Musculoskeletal Disorders: No Hx Falls: No - GASTROINTESTINAL Hx Gastrointestinal Disorders: No - PSYCHIATRIC Hx Substance Use: No - SURGICAL HISTORY Hx Surgeries: Yes Other/Comment: Stefano Cath, left upper anterior chest. Non-functioning AV Fistula, right a/c - ANESTHESIA Hx Anesthesia: Yes Hx Anesthesia Reactions: No Meds Allergies/Adverse Reactions: Allergies Allergy/AdvReac Type Severity Reaction Status Date / Time vancomycin AdvReac Severe RASH Verified 06/16/18 14:20 Results - Vital Signs Recent Vital Signs: Last Vital Signs Temp 98.7 F 06/16/18 18:08 Pulse 90 06/16/18 20:03 Resp 16 06/16/18 18:08 BP 190/108 H 06/16/18 18:08 Pulse Ox 100 06/16/18 18:08 - Labs Result Diagrams: 06/16/18 16:55 Labs: Laboratory Results - last 24 hr 06/16/18 06/16/18 06/16/18 15:37 15:38 15:50 Sodium Potassium Chloride Carbon Dioxide Anion Gap BUN Creatinine Est GFR ( Amer) Est GFR (Non-Af Amer) POC Glucose (mg/dL) 42 L 39 L 34 L* Random Glucose Calcium 06/16/18 06/16/18 06/16/18 15:53 16:09 16:55 Sodium 137 Potassium 5.0 Chloride 100 Carbon Dioxide 22 Anion Gap 20 BUN 80 H Creatinine 10.8 H* Est GFR ( Amer) 6 Est GFR (Non-Af Amer) 5 POC Glucose (mg/dL) 44 L 169 H Random Glucose 138 H D Calcium 7.9 L
--- NOTE | 2018-06-17 04:13 | CON ---
DATE: 06/16/2018 RENAL CONSULTATION LOCATION: The patient is located in room 670, bed B. REQUESTED BY: Shahida Catherine MD REASON FOR RENAL CONSULTATION: Hyperkalemia, end-stage renal disease, for further evaluation and continuation of hemodialysis. HISTORY OF PRESENT ILLNESS: Mr. Yeung is a 72-year-old elderly male with a history of longstanding hypertension, diabetes, perinephric abscess, status post right nephrectomy, end-stage renal disease, on hemodialysis three times a week of Tuesday, and Tuesday with multiple access problems and status post removal of the right upper extremity AV graft secondary to MRSA sepsis. The patient was recently admitted to [facility] for left arm swelling and found to have central vein stenosis, status post angioplasty by Dr. Hartman and subsequently left internal jugular PermCath was removed and changed to right femoral. After two weeks, the patient was admitted to [facility] with MRSA sepsis. Subsequently, his PermCath was changed and treated with IV antibiotics of daptomycin for about two weeks after the blood culture was negative. The patient was complaining of left upper extremity swelling last week and notified Dr. Hartman, and the patient was seen by Dr. Hartman in the office on Tuesday morning at 8:30. The patient was advised to go to the hospital for angioplasty. The patient refused Tuesday and then the patient was scheduled for surgery this morning same day surgery for angioplasty. His preop labs showed hyperkalemia, and the procedure was canceled. The patient was referred to the emergency room for treatment of hyperkalemia. The patient denies any headache or dizziness. Denies any chest pain or palpitation. Denies any fever or cough. No abdominal pain. No nausea, vomiting, or diarrhea. PAST MEDICAL HISTORY: Significant for hypertension, diabetes, end-stage renal disease, hypothyroidism, seizure disorder. PAST SURGICAL HISTORY: Status post right nephrectomy, status post removal of the right upper extremity AV graft, status post left upper extremity AV fistula and multiple PermCath placements in the past. ALLERGIES: ALLERGIC TO VANCOMYCIN. SOCIAL HISTORY: No smoking. No alcohol. No drugs. PERSONAL HISTORY: He is and has one daughter. He has very supportive sisters and family. CURRENT MEDICATIONS: Include as follows: Hydralazine 50 mg p.o. every 6 hours, Synthroid 125 mcg p.o. daily, Keppra 500 mg every 12 hours, calcium acetate 667 mg p.o. t.i.d., Nephro-Yenny one tablet p.o. daily. PHYSICAL EXAMINATION: VITAL SIGNS: As follows: Blood pressure 190/108, pulse 96, respirations 16, temperature 98.7, saturation 100%. Height 5 feet 8 inches. Weight is 175 pounds. GENERAL: Mr. Yeung is a 72-year-old elderly male, moderately built, moderately nourished, not in acute distress. HEENT: Pupils are normal and reactive to light and accommodation. Conjunctivae pink. Sclerae anicteric. Tongue is moist. Trachea is midline. LUNGS: Symmetric on both sides. Bilateral breath sounds present. Clear to auscultation. CARDIOVASCULAR SYSTEM: [place] at the fifth intercostal space, midclavicular line. S1 and S2 audible. No murmur or gallop. ABDOMEN: Normal in appearance, soft, tympanitic. No guarding. No rigidity. No hepatosplenomegaly. CENTRAL NERVOUS SYSTEM: The patient is alert, awake, oriented x3. Nonfocal neuro examination. Cranial nerves II through XII grossly intact. Sensory and motor system is within normal limits. EXTREMITIES: No cyanosis, no clubbing, no edema on lower extremities. The patient has swelling of the left upper extremity. LABORATORY DATA: His current laboratory data include as follows: Sodium 137, potassium 5, chloride 100, CO2 of 22, BUN 80, creatinine 10.8, glucose 138, calcium 7.9. His laboratory data this morning on the same day surgery, sodium 138, potassium 6.4, chloride 97, CO2 of 23, BUN 83, creatinine 11.3, glucose 89, calcium 8.4. Repeat potassium is 7 at 1201 hours. ASSESSMENT AND PLAN: In summary, Mr. Yeung is a 72-year-old elderly male with a history of hypertension, diabetes, end-stage renal disease, seizure disorder, hypothyroidism, noncompliance with medications and diet who was admitted to Same day Surgery as preoperative labs showed potassium 6.4 and then repeat one of 7, and the procedure was canceled and sent to the emergency room for the treatment of hyperkalemia. The patient was given calcium gluconate, D50, insulin and Kayexalate in the emergency room. His repeat potassium is 5. 1. End-stage renal disease. Continue hemodialysis three times a week, Tuesday, and Tuesday. 2. Hyperkalemia, secondary to noncompliance with the diet. Continue low-sodium, low-potassium diet and advised the patient to watch the diet. The patient wants hemodialysis scheduled for tomorrow. As per the patient's wish, we will schedule for hemodialysis in the morning. Continue to monitor electrolytes. 3. Hypertension. 4. Hypothyroidism. Continue Synthroid. 5. Seizure disorder. Continue Keppra. We will follow with you. Thank you for allowing me to participate in your patient's care. Follow up with Vascular Surgery, Dr. Hartman. Larry Falk MD
[2018-06-17] MEDS: Levothyroxine 125 MCG TAB PO SCH (06:01)
[2018-06-17] MEDS: Multivitamin Vitamin B Complex (Nephro-Vite) Tab PO SCH (08:43)
[2018-06-17] MEDS ORDERED: Enoxaparin 40 mg Syringe SC SCH (10:00)
--- NOTE | 2018-06-17 16:13 | CP.PCM.PN ---
Subjective - Date & Time of Evaluation Date of Evaluation: 06/17/18 Time of Evaluation: 16:09 - Subjective Subjective: Providing nephrology coverage for Dr. Falk: 72 yo M w/ pmh of htn, dm, ESRD on HD, initially presented to [facility] for angiogram involving L arm AVF with persistent swelling of arm, admitted due to severe hyperkalemia; s/p HD today; reports feeling well; no sob; urinating well; has some pain involving affected arm; Objective - Vital Signs/Intake and Output Vital Signs (last 24 hours): Temp Pulse Resp BP Pulse Ox 97.1 F L 86 16 133/64 97 06/17/18 12:10 06/17/18 16:00 06/17/18 16:00 06/17/18 16:00 06/17/18 12:10 - Medications Medications: Current Medications Calcium Acetate (Phoslo) 667 mg PO TIDCC [facility] Last Admin: 06/17/18 12:52 Dose: 667 mg Dorzolamide HCl (Trusopt) 0.05 ml OU HS [facility] Heparin Sodium (Porcine) (Heparin) 5,000 units SC Q12 [facility] Last Admin: 06/17/18 10:00 Dose: Not Given Heparin Sodium (Porcine) (Heparin (For Dialysis)) 4,500 units IVP TTS [facility] Last Admin: 06/17/18 12:01 Dose: 4,500 units Hydralazine HCl (Apresoline) 50 mg PO Q6 [facility] Last Admin: 06/17/18 12:52 Dose: 50 mg Ibuprofen (Motrin Tab) 400 mg PO Q8H PRN PRN Reason: Pain, moderate (4-7) Levetiracetam (Keppra) 500 mg PO Q12 [facility] Last Admin: 06/17/18 10:00 Dose: Not Given Levothyroxine Sodium (Synthroid) 125 mcg PO DAILY@0630 [facility] Last Admin: 06/17/18 06:01 Dose: 125 mcg Timolol Maleate (Timoptic 0.5% Ophth Soln) 0.05 drop OU HS [facility] Vitamin B Complex/Vit C/Folic Acid (Nephro-Yenny) 1 tab PO 0800 [facility] Last Admin: 06/17/18 08:43 Dose: 1 tab - Labs Labs: 06/16/18 16:55 - Constitutional Appears: Non-toxic, No Acute Distress - Eye Exam Eye Exam: Normal appearance. absent: Scleral icterus - Respiratory Exam Respiratory Exam: Clear to Ausculation Bilateral. absent: Respiratory Distress - Cardiovascular Exam Cardiovascular Exam: RRR, +S1, +S2 - GI/Abdominal Exam GI & Abdominal Exam: Soft. absent: Distended, Tenderness - Extremities Exam Additional comments: no leg edema; L arm markedly edematous; AVF w/ good bruit; warm hand; - Neurological Exam Neurological Exam: Alert, Awake - Psychiatric Exam Psychiatric exam: Normal Mood. absent: Agitated - Skin Skin Exam: Warm. absent: Cyanosis Assessment and Plan (1) ESRD on hemodialysis Assessment & Plan: Stable volume and electrolyte status after hyperkalemia treated medically; s/p routine HD today; next for Tuesday; Status: Acute (2) Hyperkalemia Status: Resolved (3) Failure of hemodialysis access Assessment & Plan: L arm swelling, s/p central stenosis previously; needs repeat fistulogram, aiming for Tuesday; will ensure lytes/volume status stable prior to procedure; giving ibuprofen for swelling; Status: Acute (4) Hypertensive CKD, ESRD on dialysis Assessment & Plan: BP controlled, continue current med; Status: Chronic (5) Anemia in CKD (chronic kidney disease) Assessment & Plan: Checking h/h, will dose EPO if needed; Status: Chronic (6) Chronic kidney disease-mineral and bone disorder Assessment & Plan: Continue phoslo, will check phos; Status: Chronic
--- NOTE | 2018-06-17 18:30 | CP.PCM.PN ---
Subjective - Date & Time of Evaluation Date of Evaluation: 06/17/18 Time of Evaluation: 11:00 - Subjective Subjective: clinically same Objective - Vital Signs/Intake and Output Vital Signs (last 24 hours): Temp Pulse Resp BP Pulse Ox 98 F 86 16 133/64 28 L 06/17/18 15:00 06/17/18 16:00 06/17/18 16:00 06/17/18 16:00 06/17/18 15:00 - Medications Medications: Current Medications Calcium Acetate (Phoslo) 667 mg PO TIDCC [facility] Last Admin: 06/17/18 17:22 Dose: 667 mg Dorzolamide HCl (Trusopt) 0.05 ml OU HS [facility] Heparin Sodium (Porcine) (Heparin) 5,000 units SC Q12 [facility] Last Admin: 06/17/18 10:00 Dose: Not Given Heparin Sodium (Porcine) (Heparin (For Dialysis)) 4,500 units IVP TTS [facility] Last Admin: 06/17/18 12:01 Dose: 4,500 units Hydralazine HCl (Apresoline) 50 mg PO Q6 [facility] Last Admin: 06/17/18 12:52 Dose: 50 mg Ibuprofen (Motrin Tab) 400 mg PO Q8H PRN PRN Reason: Pain, moderate (4-7) Levetiracetam (Keppra) 500 mg PO Q12 [facility] Last Admin: 06/17/18 10:00 Dose: Not Given Levothyroxine Sodium (Synthroid) 125 mcg PO DAILY@0630 [facility] Last Admin: 06/17/18 06:01 Dose: 125 mcg Timolol Maleate (Timoptic 0.5% Ophth Soln) 0.05 drop OU HS [facility] Vitamin B Complex/Vit C/Folic Acid (Nephro-Yenny) 1 tab PO 0800 [facility] Last Admin: 06/17/18 08:43 Dose: 1 tab - Labs Labs: 06/16/18 16:55 - Constitutional Appears: Well - Head Exam Head Exam: ATRAUMATIC, NORMAL INSPECTION, NORMOCEPHALIC - Eye Exam Eye Exam: EOMI, Normal appearance, PERRL Pupil Exam: NORMAL ACCOMODATION, PERRL - ENT Exam ENT Exam: Mucous Membranes Moist, Normal Exam - Neck Exam Neck Exam: Full ROM, Normal Inspection. absent: Lymphadenopathy - Respiratory Exam Respiratory Exam: Decreased Breath Sounds - Cardiovascular Exam Cardiovascular Exam: REGULAR RHYTHM, +S1, +S2 - GI/Abdominal Exam GI & Abdominal Exam: Soft, Diminished Bowel Sounds - Rectal Exam Rectal Exam: Deferred
[2018-06-17] MEDS: Dorzolamide 2% Opht Sol 10ml OU SCH (22:47)
[2018-06-18] MEDS: Levothyroxine 125 MCG TAB PO SCH (06:28)
[2018-06-18] MEDS: Multivitamin Vitamin B Complex (Nephro-Vite) Tab PO SCH (08:10)
--- NOTE | 2018-06-18 13:03 | CP.PCM.PN ---
Subjective - Date & Time of Evaluation Date of Evaluation: 06/18/18 Time of Evaluation: 11:00 - Subjective Subjective: clinically same Objective - Vital Signs/Intake and Output Vital Signs (last 24 hours): Temp Pulse Resp BP Pulse Ox 98.2 F 90 20 129/74 95 06/18/18 07:30 06/18/18 11:18 06/18/18 07:30 06/18/18 07:30 06/18/18 11:18 - Medications Medications: Current Medications Calcium Acetate (Phoslo) 667 mg PO TIDCC [facility] Last Admin: 06/18/18 12:46 Dose: 667 mg Dorzolamide HCl (Trusopt) 0.05 ml OU HS [facility] Last Admin: 06/17/18 22:47 Dose: Not Given Heparin Sodium (Porcine) (Heparin) 5,000 units SC Q12 [facility] Last Admin: 06/18/18 10:23 Dose: Not Given Heparin Sodium (Porcine) (Heparin (For Dialysis)) 4,500 units IVP TTS [facility] Last Admin: 06/17/18 12:01 Dose: 4,500 units Hydralazine HCl (Apresoline) 50 mg PO Q6 [facility] Last Admin: 06/18/18 06:29 Dose: 50 mg Ibuprofen (Motrin Tab) 400 mg PO Q8H PRN PRN Reason: Pain, moderate (4-7) Levetiracetam (Keppra) 500 mg PO Q12 [facility] Last Admin: 06/18/18 10:22 Dose: 500 mg Levothyroxine Sodium (Synthroid) 125 mcg PO DAILY@0630 [facility] Last Admin: 06/18/18 06:28 Dose: 125 mcg Timolol Maleate (Timoptic 0.5% Ophth Soln) 0.05 drop OU HS [facility] Last Admin: 06/17/18 22:48 Dose: Not Given Vitamin B Complex/Vit C/Folic Acid (Nephro-Yenny) 1 tab PO 0800 [facility] Last Admin: 06/18/18 08:10 Dose: 1 tab - Labs Labs: 06/16/18 16:55 - Constitutional Appears: Well - Head Exam Head Exam: ATRAUMATIC, NORMAL INSPECTION, NORMOCEPHALIC - Eye Exam Eye Exam: EOMI, Normal appearance, PERRL Pupil Exam: NORMAL ACCOMODATION, PERRL - ENT Exam ENT Exam: Mucous Membranes Moist, Normal Exam - Neck Exam Neck Exam: Full ROM, Normal Inspection. absent: Lymphadenopathy - Respiratory Exam Respiratory Exam: Decreased Breath Sounds - Cardiovascular Exam Cardiovascular Exam: REGULAR RHYTHM, +S1, +S2 - GI/Abdominal Exam GI & Abdominal Exam: Soft, Diminished Bowel Sounds - Rectal Exam Rectal Exam: Deferred
--- NOTE | 2018-06-18 15:58 | CP.PCM.PN ---
Subjective - Date & Time of Evaluation Date of Evaluation: 06/18/18 Time of Evaluation: 15:56 - Subjective Subjective: plan is angio tuesday / angioplasty stent if K adequate or ligation if unable to fix central vein stenosis Objective - Vital Signs/Intake and Output Vital Signs (last 24 hours): Temp Pulse Resp BP Pulse Ox 98.2 F 90 20 129/74 95 06/18/18 07:30 06/18/18 11:18 06/18/18 07:30 06/18/18 07:30 06/18/18 11:18 - Medications Medications: Current Medications Calcium Acetate (Phoslo) 667 mg PO TIDCC [facility] Last Admin: 06/18/18 12:46 Dose: 667 mg Dorzolamide HCl (Trusopt) 0.05 ml OU HS [facility] Last Admin: 06/17/18 22:47 Dose: Not Given Heparin Sodium (Porcine) (Heparin) 5,000 units SC Q12 [facility] Last Admin: 06/18/18 10:23 Dose: Not Given Heparin Sodium (Porcine) (Heparin (For Dialysis)) 4,500 units IVP TTS [facility] Last Admin: 06/17/18 12:01 Dose: 4,500 units Hydralazine HCl (Apresoline) 50 mg PO Q6 [facility] Last Admin: 06/18/18 13:00 Dose: 50 mg Ibuprofen (Motrin Tab) 400 mg PO Q8H PRN PRN Reason: Pain, moderate (4-7) Levetiracetam (Keppra) 500 mg PO Q12 [facility] Last Admin: 06/18/18 10:22 Dose: 500 mg Levothyroxine Sodium (Synthroid) 125 mcg PO DAILY@0630 [facility] Last Admin: 06/18/18 06:28 Dose: 125 mcg Timolol Maleate (Timoptic 0.5% Ophth Soln) 0.05 drop OU HS [facility] Last Admin: 06/17/18 22:48 Dose: Not Given Vitamin B Complex/Vit C/Folic Acid (Nephro-Yenny) 1 tab PO 0800 [facility] Last Admin: 06/18/18 08:10 Dose: 1 tab - Labs Labs: 06/16/18 16:55
[2018-06-18 17:02] LABS: BASO % 0.4 % (0.0-2.0); EOS # 0.3 K/uL (0.0-0.7); EOS % 3.8 % (0.0-4.0); HEMOGLOBIN 11.3 g/dL (12.0-18.0); LYMPH # 0.5 K/uL (1.0-4.3); LYMPH % 6.7 % (20.0-40.0); MEAN CELL VOLUME 90.8 fL (80.0-94.0); MEAN CORPUSCULAR HEMOGLOBIN 29.4 pg (27.0-31.0); MEAN CORPUSCULAR HGB CONC 32.4 g/dL (33.0-37.0); MEAN PLATELET VOLUME 7.6 fL (7.2-11.7); MONO # 1.2 K/uL (0.0-0.8); MONO % 15.7 % (0.0-10.0); NEUT # 5.8 K/uL (1.8-7.0); NEUT % 73.4 % (50.0-75.0); NRBC % 0.1 % (0.0-2.0); PLATELET COUNT 138 K/uL (130-400); RBC 3.85 Mil/uL (4.40-5.90); RED CELL DISTRIBUTION WIDTH 18.3 % (11.5-14.5); WHITE BLOOD COUNT 7.9 K/uL (4.8-10.8)
[2018-06-18 17:16] LABS: INR 1.1; PROTHROMBIN TIME 12.4 SECONDS (9.7-12.2)
[2018-06-18 17:30] LABS: ANISOCYTOSIS MODERATE; EOSINOPHIL 1 % (0-4); LYMPHOCYTE 7 % (20-40); MONOCYTE 16 % (0-10); NEUTROPHIL 76 % (50-75); PLATELET ESTIMATE NORMAL (NORMAL); TOTAL CELLS COUNTED 100
[2018-06-18 17:31] LABS: HYPOCHROMIC SLIGHT; LARGE PLATELETS PRESENT; POLYCHROMIC SLIGHT
[2018-06-18 18:08] LABS: ALB/GLOB RATIO 1.3 (1.0-2.1); ALBUMIN 4.5 g/dL (3.5-5.0)
[2018-06-18] MEDS: Dorzolamide 2% Opht Sol 10ml OU SCH (22:39)
[2018-06-19] MEDS: Levothyroxine 125 MCG TAB PO SCH (05:33)
[2018-06-19 07:06] LABS: CALCIUM 7.8 mg/dl (8.6-10.4)
[2018-06-19] MEDS: Multivitamin Vitamin B Complex (Nephro-Vite) Tab PO SCH (08:18)
[2018-06-19] MEDS ORDERED: Iohexol 240 (50 ml) ONE (11:08)
[2018-06-19] MEDS ORDERED: ceFAZolin 1 gm in NS 2 GM/200 ML BAG IVPB ONE (11:08)
[2018-06-19] MEDS ORDERED: HEPARIN-NS 5,000 UNITS/500 ML 5,000 UNIT/500 ML BAG IV ONE ×2 (11:08→12:29)
[2018-06-19] MEDS ORDERED: Iohexol 240 200 ML ONE ×2 (11:12→12:28)
[2018-06-19] MEDS ORDERED: Midazolam 2 MG/2 ML VIAL ONE (11:37)
[2018-06-19] MEDS ORDERED: Lidocaine Hydrochloride 10 ML INJ ONE (11:47)
[2018-06-19] MEDS ORDERED: HYDROmorphone 0.5 mg/0.5 ml ISec IVP PRN (13:07)
[2018-06-19] MEDS ORDERED: Labetalol 5mg/ml (4ml) IVP PRN (13:07)
--- NOTE | 2018-06-19 13:12 | PCM.SURG1 ---
Surgeon's Initial Post Op Note - Surgeon's Notes Surgeon: Dr. Hartman Engineer Booster And Exhauster: Dr. Aquino PGY-3 Type of Anesthesia: IV Sedation Pre-Operative Diagnosis: Central venous stenosis Operative Findings: See operative report Post-Operative Diagnosis: Same Operation Performed: Fistulagram & balloon angioplasty with 10mm stent of Left Inominate Vein Specimen/Specimens Removed: none Estimated Blood Loss: EBL {In ML}: 30 Blood Products Given: N/A Drains Used: No Drains Post-Op Condition: Good Date of Surgery/Procedure: 06/19/18 Time of Surgery/Procedure: 13:12
--- NOTE | 2018-06-19 14:13 | CP.PCM.PN ---
Subjective - Date & Time of Evaluation Date of Evaluation: 06/19/18 Time of Evaluation: 06:00 - Subjective Subjective: Patient seen and evaluated bedside. Patient has elevated K will undergo dialysis. Says swelling on Left arm and pain is same. Objective - Vital Signs/Intake and Output Vital Signs (last 24 hours): Temp Pulse Resp BP Pulse Ox 98.6 F 78 10 L 12/71 L 100 06/19/18 13:04 06/19/18 13:40 06/19/18 13:40 06/19/18 13:40 06/19/18 13:40 Intake and Output: 06/19/18 06/19/18 06:59 18:59 Intake Total 300 Balance 300 - Medications Medications: Current Medications Calcium Acetate (Phoslo) 1,334 mg PO TIDCC [facility] Last Admin: 06/19/18 08:04 Dose: Not Given Dorzolamide HCl (Trusopt) 0.05 ml OU HS [facility] Last Admin: 06/18/18 22:39 Dose: Not Given Heparin Sodium (Porcine) (Heparin) 5,000 units SC Q12 [facility] Last Admin: 06/18/18 22:39 Dose: Not Given Heparin Sodium (Porcine) (Heparin (For Dialysis)) 4,500 units IVP TTS [facility] Last Admin: 06/17/18 12:01 Dose: 4,500 units Hydralazine HCl (Apresoline) 50 mg PO Q6 [facility] Last Admin: 06/19/18 05:33 Dose: 50 mg Hydromorphone HCl (Dilaudid) 0.5 mg IVP Q10M PRN PRN Reason: Pain, moderate (4-7) Stop: 06/19/18 15:08 Last Admin: 06/19/18 13:19 Dose: 0.5 mg Ibuprofen (Motrin Tab) 400 mg PO Q8H PRN PRN Reason: Pain, moderate (4-7) Last Admin: 06/19/18 01:01 Dose: 400 mg Labetalol HCl (Trandate) 5 mg IVP Q5M PRN PRN Reason: Systolic Blood Pressure Stop: 06/19/18 15:08 Levetiracetam (Keppra) 500 mg PO Q12 [facility] Last Admin: 06/18/18 22:34 Dose: 500 mg Levothyroxine Sodium (Synthroid) 125 mcg PO DAILY@0630 [facility] Last Admin: 06/19/18 05:33 Dose: 125 mcg Ondansetron HCl (Zofran Inj) 4 mg IVP ONCE PRN PRN Reason: Nausea/Vomiting Stop: 06/19/18 15:08 Timolol Maleate (Timoptic 0.5% Ophth Soln) 0.05 drop OU HS [facility] Last Admin: 06/18/18 22:39 Dose: Not Given Vitamin B Complex/Vit C/Folic Acid (Nephro-Yenny) 1 tab PO 0800 [facility] Last Admin: 06/19/18 08:18 Dose: 1 tab - Labs Labs: 06/18/18 16:30 06/19/18 05:28 PT 12.4 SECONDS (9.7-12.2) H 06/18/18 16:30 INR 1.1 06/18/18 16:30 APTT 35 SECONDS (21-34) H 06/18/18 16:30 - Constitutional Appears: Non-toxic, No Acute Distress - ENT Exam ENT Exam: Mucous Membranes Moist - Respiratory Exam Respiratory Exam: Clear to Ausculation Bilateral, NORMAL BREATHING PATTERN - Cardiovascular Exam Cardiovascular Exam: REGULAR RHYTHM, +S1, +S2 - Extremities Exam Additional comments: L arm edema - Neurological Exam Neurological Exam: Alert, Awake Assessment and Plan - Assessment and Plan (Free Text) Plan: (1) ESRD on hemodialysis Assessment & Plan: Dialysis today for K elevation, then continue schedule Status: Acute (2) Hyperkalemia K 5.5, will require dialysis today Status: Resolved (3) Failure of hemodialysis access Assessment & Plan: L arm swelling, s/p central stenosis previously Fistulagram & balloon angioplasty with 10mm stent of Left Inominate Vein by surgery done Status: Acute (4) Hypertensive CKD, ESRD on dialysis Assessment & Plan: BPnelevated continue meds and monitor Status: Chronic (5) Anemia in CKD (chronic kidney disease) Assessment & Plan: h/h stable monitor Status: Chronic (6) Chronic kidney disease-mineral and bone disorder Assessment & Plan: Continue phoslo, will check phos; Status: Chronic
--- NOTE | 2018-06-19 14:21 | CP.PCM.PN ---
Subjective - Date & Time of Evaluation Date of Evaluation: 06/19/18 Time of Evaluation: 12:15 - Subjective Subjective: clinically same Objective - Vital Signs/Intake and Output Vital Signs (last 24 hours): Temp Pulse Resp BP Pulse Ox 98.6 F 78 10 L 12/71 L 100 06/19/18 13:04 06/19/18 13:40 06/19/18 13:40 06/19/18 13:40 06/19/18 13:40 Intake and Output: 06/19/18 06/19/18 06:59 18:59 Intake Total 300 Balance 300 - Medications Medications: Current Medications Calcium Acetate (Phoslo) 1,334 mg PO TIDCC [facility] Last Admin: 06/19/18 08:04 Dose: Not Given Dorzolamide HCl (Trusopt) 0.05 ml OU HS [facility] Last Admin: 06/18/18 22:39 Dose: Not Given Heparin Sodium (Porcine) (Heparin) 5,000 units SC Q12 [facility] Last Admin: 06/18/18 22:39 Dose: Not Given Heparin Sodium (Porcine) (Heparin (For Dialysis)) 4,500 units IVP TTS [facility] Last Admin: 06/17/18 12:01 Dose: 4,500 units Hydralazine HCl (Apresoline) 50 mg PO Q6 [facility] Last Admin: 06/19/18 05:33 Dose: 50 mg Hydromorphone HCl (Dilaudid) 0.5 mg IVP Q10M PRN PRN Reason: Pain, moderate (4-7) Stop: 06/19/18 15:08 Last Admin: 06/19/18 13:19 Dose: 0.5 mg Ibuprofen (Motrin Tab) 400 mg PO Q8H PRN PRN Reason: Pain, moderate (4-7) Last Admin: 06/19/18 01:01 Dose: 400 mg Labetalol HCl (Trandate) 5 mg IVP Q5M PRN PRN Reason: Systolic Blood Pressure Stop: 06/19/18 15:08 Levetiracetam (Keppra) 500 mg PO Q12 [facility] Last Admin: 06/18/18 22:34 Dose: 500 mg Levothyroxine Sodium (Synthroid) 125 mcg PO DAILY@0630 [facility] Last Admin: 06/19/18 05:33 Dose: 125 mcg Ondansetron HCl (Zofran Inj) 4 mg IVP ONCE PRN PRN Reason: Nausea/Vomiting Stop: 06/19/18 15:08 Timolol Maleate (Timoptic 0.5% Ophth Soln) 0.05 drop OU HS [facility] Last Admin: 06/18/18 22:39 Dose: Not Given Vitamin B Complex/Vit C/Folic Acid (Nephro-Yenny) 1 tab PO 0800 [facility] Last Admin: 06/19/18 08:18 Dose: 1 tab - Labs Labs: 06/18/18 16:30 06/19/18 05:28 PT 12.4 SECONDS (9.7-12.2) H 06/18/18 16:30 INR 1.1 06/18/18 16:30 APTT 35 SECONDS (21-34) H 06/18/18 16:30
--- NOTE | 2018-06-19 15:54 | RAD ---
Date of service: 06/19/2018 PROCEDURE: Intraoperative Fluoroscopy. HISTORY: LEFT ARM FITULOGRAM FINDINGS: Fluoroscopic assistance was provided for fistulagram. Please refer to the operative report from NIGHAT Agrawal. Total fluoroscopic time (continuous mode) utilized during the procedure 466.1 seconds. Total exam DLP: 173.00 (mGy).
[2018-06-19] MEDS: Dorzolamide 2% Opht Sol 10ml OU SCH (21:41)
--- NOTE | 2018-06-20 00:50 | OP ---
PROCEDURE DATE: 06/19/2018 PREOPERATIVE DIAGNOSIS: Central vein stenosis, left arm edema, renal failure. PROCEDURE CARRIED OUT: Fistulogram, left arm; balloon angioplasty; and deployment of 10-mm stent, central vein, left innominate vein. SURGEON: Nba Hartman Jr., MD MANAGER STERILE: Karen Aquino DO TYPE OF ANESTHESIA: Local with sedation. ANESTHESIOLOGIST: Rhett Michelle MD. 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 The arm has become massively swollen. Previously, he had a central vein catheter on the left side. OPERATIVE FINDINGS: There was a tight stenosis at the distal, meaning towards the heart, portion of the left innominate vein. This was dilated initially with an 8 mm and then a 10 mm balloon, but in view of the fact that, this has previously been dilated, I then deployed a 10-mm stent. This waspost dilated. _ There was still a small residual waist dilated with satisfactory result. The completion films did not show any residual stenosis at this area and there was no evidence of any extravasation. DESCRIPTION OF PROCEDURE: The patient was given local anesthesia. Using ultrasound guidance and micropuncture technique, the left arm basilic vein was punctured. Under fluoroscopic control, the guidewire was advanced centrally. The initial pictures, which were taken in the area of the arterial anastomosis up to the entry of the innominate vein, showed that there was a severe narrowing of the innominate vein throughout its course and a more focal narrowing just prior to its junction to the right innominate vein. This was crossed. An Amplatz wire was placed into the inferior vena cava. This was initially dilated with an 8-mm balloon, then with a 10-mm balloon and finally deployed the stent. Final cosmetic results showed brisk flow with reduction of the venous collaterals. After obtaining hemostasis at the puncture site, the right arm was wrapped in an Fritz bandage and procedure was terminated. Blood loss was as I mentioned. Operation carried out was fistulogram, left arm and then balloon angioplasty and deployment of 10-mm stent in the left innominate vein. Nba Hartman Jr., MD cc: Bhavna Ray MD MTDD
[2018-06-20] MEDS: Aritificial Tears (15ml) OU SCH ×5 (01:43→21:50)
[2018-06-20] MEDS: Levothyroxine 125 MCG TAB PO SCH (06:12)
[2018-06-20] MEDS: Multivitamin Vitamin B Complex (Nephro-Vite) Tab PO SCH (08:16)
--- NOTE | 2018-06-20 09:49 | CP.PCM.PN ---
Subjective - Date & Time of Evaluation Date of Evaluation: 06/20/18 Time of Evaluation: 07:00 - Subjective Subjective: Surgery: Dr. Hartman Pt seen and examined. Overnight pt complaining of itchiness and swollen eyes, he was given Benadryl which helped a little but pt continues to have swollen eyes as well as itchiness all over. He denies any pain and states the swelling in his arm is a little less. Denies other complaints at this time. Objective - Vital Signs/Intake and Output Vital Signs (last 24 hours): Temp Pulse Resp BP Pulse Ox 98.1 F 67 20 132/68 100 06/20/18 08:05 06/20/18 08:05 06/20/18 08:05 06/20/18 08:05 06/20/18 08:05 Intake and Output: 06/20/18 06/20/18 06:59 18:59 Intake Total 200 Balance 200 - Medications Medications: Current Medications Artificial Tears (Artificial Tears) 1 ml OU QID [facility] Last Admin: 06/20/18 01:43 Dose: 1 drop Calcium Acetate (Phoslo) 1,334 mg PO TIDCC [facility] Last Admin: 06/20/18 08:16 Dose: Not Given Dorzolamide HCl (Trusopt) 0.05 ml OU HS [facility] Last Admin: 06/19/18 21:41 Dose: Not Given Heparin Sodium (Porcine) (Heparin) 5,000 units SC Q12 [facility] Last Admin: 06/19/18 21:40 Dose: Not Given Heparin Sodium (Porcine) (Heparin (For Dialysis)) 4,500 units IVP TTS [facility] Last Admin: 06/17/18 12:01 Dose: 4,500 units Hydralazine HCl (Apresoline) 50 mg PO Q6 [facility] Last Admin: 06/20/18 06:13 Dose: 50 mg Ibuprofen (Motrin Tab) 400 mg PO Q8H PRN PRN Reason: Pain, moderate (4-7) Last Admin: 06/19/18 01:01 Dose: 400 mg Levetiracetam (Keppra) 500 mg PO Q12 [facility] Last Admin: 06/19/18 21:41 Dose: Not Given Levothyroxine Sodium (Synthroid) 125 mcg PO DAILY@0630 [facility] Last Admin: 06/20/18 06:12 Dose: 125 mcg Timolol Maleate (Timoptic 0.5% Ophth Soln) 0.05 drop OU HS [facility] Last Admin: 06/19/18 21:41 Dose: Not Given Vitamin B Complex/Vit C/Folic Acid (Nephro-Yenny) 1 tab PO 0800 [facility] Last Admin: 06/20/18 08:16 Dose: Not Given - Labs Labs: 06/18/18 16:30 06/19/18 05:28 PT 12.4 SECONDS (9.7-12.2) H 06/18/18 16:30 INR 1.1 06/18/18 16:30 APTT 35 SECONDS (21-34) H 06/18/18 16:30 - Constitutional Appears: Well, No Acute Distress - Eye Exam Eye Exam: Periorbital swelling - Respiratory Exam Respiratory Exam: NORMAL BREATHING PATTERN - Cardiovascular Exam Cardiovascular Exam: RRR - GI/Abdominal Exam GI & Abdominal Exam: Soft - Extremities Exam Additional comments: left arm with swelling from the hand all the way up to the axilla; slightly improved compared to prior exam. AVF with palpable thrill - Neurological Exam Neurological Exam: Alert, Awake - Skin Skin Exam: Dry, Warm Assessment and Plan - Assessment and Plan (Free Text) Assessment: 72M with central venous stenosis s/p fistulagram with angioplasty & stent of L inominate vein; POD#1 Plan: - cont to monitor swelling in Left arm - will give additional dose of benadryl & solumedrol - d/w Dr. Minnie Aquino
[2018-06-20] MEDS ORDERED: MethylPREDNISolone 40 mg Vial IVP ONE ×3 (10:25→15:00)
[2018-06-20 12:22] LABS: HEMOGLOBIN 10.3 g/dL (12.0-18.0); MEAN CELL VOLUME 91.1 fL (80.0-94.0); MEAN CORPUSCULAR HEMOGLOBIN 29.9 pg (27.0-31.0); MEAN CORPUSCULAR HGB CONC 32.8 g/dL (33.0-37.0); MEAN PLATELET VOLUME 8.5 fL (7.2-11.7); RBC 3.44 Mil/uL (4.40-5.90); RED CELL DISTRIBUTION WIDTH 17.8 % (11.5-14.5)
[2018-06-20 12:30] LABS: WHITE BLOOD COUNT 2.5 K/uL (4.8-10.8)
[2018-06-20 13:11] LABS: CALCIUM 7.7 mg/dl (8.6-10.4)
[2018-06-20 14:36] VITALS: RESP 20
--- NOTE | 2018-06-20 18:01 | CP.PCM.PN ---
Subjective - Date & Time of Evaluation Date of Evaluation: 06/20/18 Time of Evaluation: 10:15 - Subjective Subjective: clinically same Objective - Vital Signs/Intake and Output Vital Signs (last 24 hours): Temp Pulse Resp BP Pulse Ox 98.7 F 98 H 20 92/47 L 97 06/20/18 13:38 06/20/18 13:38 06/20/18 13:38 06/20/18 13:38 06/20/18 13:38 Intake and Output: 06/20/18 06/20/18 06:59 18:59 Intake Total 200 Balance 200 - Medications Medications: Current Medications Artificial Tears (Artificial Tears) 1 ml OU QID [facility] Last Admin: 06/20/18 17:49 Dose: 1 drop Calcium Acetate (Phoslo) 1,334 mg PO TIDCC [facility] Last Admin: 06/20/18 17:50 Dose: 667 mg Dorzolamide HCl (Trusopt) 0.05 ml OU HS [facility] Last Admin: 06/19/18 21:41 Dose: Not Given Heparin Sodium (Porcine) (Heparin) 5,000 units SC Q12 [facility] Last Admin: 06/20/18 09:56 Dose: Not Given Hydralazine HCl (Apresoline) 50 mg PO Q8H [facility] Last Admin: 06/20/18 13:15 Dose: Not Given Ibuprofen (Motrin Tab) 400 mg PO Q8H PRN PRN Reason: Pain, moderate (4-7) Last Admin: 06/19/18 01:01 Dose: 400 mg Levetiracetam (Keppra) 500 mg PO Q12 [facility] Last Admin: 06/20/18 09:53 Dose: 500 mg Levothyroxine Sodium (Synthroid) 125 mcg PO DAILY@0630 [facility] Last Admin: 06/20/18 06:12 Dose: 125 mcg Methylprednisolone (Medrol) 8 mg PO ACB [facility] Stop: 06/22/18 07:31 Methylprednisolone (Medrol) 4 mg PO ACL [facility] Stop: 06/25/18 11:31 Methylprednisolone (Medrol) 4 mg PO ACD [facility] Stop: 06/24/18 16:31 Methylprednisolone (Medrol) 4 mg PO ACB [facility] Stop: 06/27/18 07:31 Methylprednisolone (Medrol) 4 mg PO HS [facility] Stop: 06/26/18 22:01 Methylprednisolone (Medrol) 8 mg PO HS [facility] Stop: 06/22/18 22:01 Timolol Maleate (Timoptic 0.5% Oph Soln) 0.05 drop OU HS [facility] Last Admin: 06/19/18 21:41 Dose: Not Given Vitamin B Complex/Vit C/Folic Acid (Nephro-Yenny) 1 tab PO 0800 [facility] Last Admin: 06/20/18 08:16 Dose: Not Given - Labs Labs: 06/20/18 10:43 06/20/18 10:43 PT 12.4 SECONDS (9.7-12.2) H 06/18/18 16:30 INR 1.1 06/18/18 16:30 APTT 35 SECONDS (21-34) H 06/18/18 16:30
--- NOTE | 2018-06-20 18:32 | CP.PCM.PN ---
<MaidaGhulam - Last Filed: 06/20/18 18:29> Subjective - Date & Time of Evaluation Date of Evaluation: 06/20/18 Time of Evaluation: 18:29 - Subjective Subjective: Nephrology progress note - Maida PGY - 2 Patient seen and examined at bedside, was itchy overnight with periorbital swelling, improved with benadryl and solumederol. POD1 left innonimate vein fistulogram Objective - Vital Signs/Intake and Output Vital Signs (last 24 hours): Temp Pulse Resp BP Pulse Ox 98.7 F 98 H 20 92/47 L 97 06/20/18 13:38 06/20/18 13:38 06/20/18 13:38 06/20/18 13:38 06/20/18 13:38 Intake and Output: 06/20/18 06/20/18 06:59 18:59 Intake Total 200 Balance 200 - Medications Medications: Current Medications Artificial Tears (Artificial Tears) 1 ml OU QID [facility] Last Admin: 06/20/18 17:49 Dose: 1 drop Calcium Acetate (Phoslo) 1,334 mg PO TIDCC [facility] Last Admin: 06/20/18 17:50 Dose: 667 mg Dorzolamide HCl (Trusopt) 0.05 ml OU HS [facility] Last Admin: 06/19/18 21:41 Dose: Not Given Heparin Sodium (Porcine) (Heparin) 5,000 units SC Q12 [facility] Last Admin: 06/20/18 09:56 Dose: Not Given Hydralazine HCl (Apresoline) 50 mg PO Q8H [facility] Last Admin: 06/20/18 13:15 Dose: Not Given Ibuprofen (Motrin Tab) 400 mg PO Q8H PRN PRN Reason: Pain, moderate (4-7) Last Admin: 06/19/18 01:01 Dose: 400 mg Levetiracetam (Keppra) 500 mg PO Q12 [facility] Last Admin: 06/20/18 09:53 Dose: 500 mg Levothyroxine Sodium (Synthroid) 125 mcg PO DAILY@0630 [facility] Last Admin: 06/20/18 06:12 Dose: 125 mcg Methylprednisolone (Medrol) 8 mg PO ACB [facility] Stop: 06/22/18 07:31 Methylprednisolone (Medrol) 4 mg PO ACL [facility] Stop: 06/25/18 11:31 Methylprednisolone (Medrol) 4 mg PO ACD [facility] Stop: 06/24/18 16:31 Methylprednisolone (Medrol) 4 mg PO ACB [facility] Stop: 06/27/18 07:31 Methylprednisolone (Medrol) 4 mg PO HS [facility] Stop: 06/26/18 22:01 Methylprednisolone (Medrol) 8 mg PO HS [facility] Stop: 06/22/18 22:01 Timolol Maleate (Timoptic 0.5% Ophth Soln) 0.05 drop OU HS [facility] Last Admin: 06/19/18 21:41 Dose: Not Given Vitamin B Complex/Vit C/Folic Acid (Nephro-Yenny) 1 tab PO 0800 [facility] Last Admin: 06/20/18 08:16 Dose: Not Given - Labs Labs: 06/20/18 10:43 06/20/18 10:43 PT 12.4 SECONDS (9.7-12.2) H 06/18/18 16:30 INR 1.1 06/18/18 16:30 APTT 35 SECONDS (21-34) H 06/18/18 16:30 - Constitutional Appears: Well - Head Exam Head Exam: ATRAUMATIC, NORMAL INSPECTION, NORMOCEPHALIC - Eye Exam Eye Exam: EOMI, Normal appearance, PERRL Pupil Exam: NORMAL ACCOMODATION, PERRL - ENT Exam ENT Exam: Mucous Membranes Moist, Normal Exam - Neck Exam Neck Exam: Full ROM, Normal Inspection. absent: Lymphadenopathy - Respiratory Exam Respiratory Exam: Clear to Ausculation Bilateral, NORMAL BREATHING PATTERN - Cardiovascular Exam Cardiovascular Exam: REGULAR RHYTHM, +S1, +S2. absent: Murmur - GI/Abdominal Exam GI & Abdominal Exam: Soft, Normal Bowel Sounds. absent: Tenderness - Extremities Exam Extremities Exam: Full ROM, Normal Capillary Refill, Normal Inspection. absent: Joint Swelling, Pedal Edema - Back Exam Back Exam: NORMAL INSPECTION - Neurological Exam Neurological Exam: Alert, Awake, CN II-XII Intact, Normal Gait, Oriented x3 - Psychiatric Exam Psychiatric exam: Normal Affect, Normal Mood - Skin Skin Exam: Dry, Intact, Normal Color, Warm Assessment and Plan - Assessment and Plan (Free Text) Assessment: (1) ESRD on hemodialysis Assessment & Plan: Dialysis today will need a cath tomorrow, will get dialysis after Status: Acute (2) Hyperkalemia K 5.5, will require dialysis today Status: Resolved (3) Failure of hemodialysis access Assessment & Plan: L arm swelling, s/p central stenosis previously Fistulagram & balloon angioplasty with 10mm stent of Left Inominate Vein by surgery done Status: Acute (4) Hypertensive CKD, ESRD on dialysis Assessment & Plan: BP elevated continue meds and monitor Status: Chronic (5) Anemia in CKD (chronic kidney disease) Assessment & Plan: h/h stable monitor Status: Chronic (6) Chronic kidney disease-mineral and bone disorder Assessment & Plan: Continue phoslo, will check phos; <Pal Sen - Last Filed: 06/21/18 05:42> Objective - Vital Signs/Intake and Output Vital Signs (last 24 hours): Temp Pulse Resp BP Pulse Ox 98.4 F 92 H 20 158/94 H 98 06/20/18 23:45 06/20/18 23:45 06/20/18 23:45 06/20/18 23:45 06/20/18 23:45 Intake and Output: 06/20/18 06/21/18 18:59 06:59 Intake Total 200 Balance 200 - Medications Medications: Current Medications Artificial Tears (Artificial Tears) 1 ml OU QID [facility] Last Admin: 06/20/18 21:50 Dose: 1 drop Calcium Acetate (Phoslo) 1,334 mg PO TIDCC [facility] Last Admin: 06/20/18 17:50 Dose: 1,334 mg Dorzolamide HCl (Trusopt) 0.05 ml OU HS [facility] Last Admin: 06/20/18 21:55 Dose: 1 drop Heparin Sodium (Porcine) (Heparin) 5,000 units SC Q12 [facility] Last Admin: 06/20/18 22:00 Dose: Not Given Hydralazine HCl (Apresoline) 50 mg PO Q8H [facility] Last Admin: 06/20/18 21:50 Dose: 50 mg Ibuprofen (Motrin Tab) 400 mg PO Q8H PRN PRN Reason: Pain, moderate (4-7) Last Admin: 06/19/18 01:01 Dose: 400 mg Levetiracetam (Keppra) 500 mg PO Q12 [facility] Last Admin: 06/20/18 21:51 Dose: 500 mg Levothyroxine Sodium (Synthroid) 125 mcg PO DAILY@0630 [facility] Last Admin: 06/20/18 06:12 Dose: 125 mcg Methylprednisolone (Medrol) 8 mg PO ACB [facility] Stop: 06/22/18 07:31 Methylprednisolone (Medrol) 4 mg PO ACL [facility] Stop: 06/25/18 11:31 Methylprednisolone (Medrol) 4 mg PO ACD [facility] Stop: 06/24/18 16:31 Methylprednisolone (Medrol) 4 mg PO ACB [facility] Stop: 06/27/18 07:31 Methylprednisolone (Medrol) 4 mg PO HS [facility] Stop: 06/26/18 22:01 Methylprednisolone (Medrol) 8 mg PO HS [facility] Stop: 06/22/18 22:01 Last Admin: 06/20/18 21:53 Dose: 8 mg Timolol Maleate (Timoptic 0.5% Ophth Soln) 0.05 drop OU HS [facility] Last Admin: 06/20/18 22:00 Dose: Not Given Vitamin B Complex/Vit C/Folic Acid (Nephro-Yenny) 1 tab PO 0800 [facility] Last Admin: 06/20/18 08:16 Dose: Not Given - Labs Labs: 06/20/18 10:43 06/20/18 10:43 PT 12.4 SECONDS (9.7-12.2) H 06/18/18 16:30 INR 1.1 06/18/18 16:30 APTT 35 SECONDS (21-34) H 06/18/18 16:30 Assessment and Plan (1) ESRD on hemodialysis Status: Acute (2) Hyperkalemia Status: Resolved (3) Failure of hemodialysis access Status: Acute (4) Hypertensive CKD, ESRD on dialysis Status: Chronic (5) Anemia in CKD (chronic kidney disease) Status: Chronic (6) Chronic kidney disease-mineral and bone disorder Status: Chronic Attending/Attestation - Attestation I have personally seen and examined this patient.: Yes I have fully participated in the care of the patient.: Yes I have reviewed all pertinent clinical information, including history, physical exam and plan: Yes Notes (Text): Providing nephrology coverage for Dr. Falk: Patient seen and examined; I agree with the resident's note as above with the following additions/edits: 72 yo M w/ pmh of htn, dm, ESRD on HD, initially presented [facility] for angiogram involving L arm AVF with persistent swelling of arm, admitted due to severe hyperkalemia; Patient seen on HD; patient is cutting short his treatment because he got short extra treatment yesterday (prior to fistulogram due to hyperkalemia); I explained to him that he is still well over his dry weight and should not cut short his treatment today; s/p fistulogram yesterday with finding of central stenosis, L innominate vein stent placed; will still need revision of AVF per vasc surgery; BP control is erratic, would benefit from getting to his dry weight; continue hydralazine;
[2018-06-20] MEDS: Dorzolamide 2% Opht Sol 10ml OU SCH (21:55)
--- NOTE | 2018-06-21 00:06 | CARD ---
APPROVED REPORT Date of service: 06/16/2018 EKG Measurement Heart [id number] <Conclusion> Normal sinus rhythm Left axis deviation Abnormal ECG
[2018-06-21] MEDS: Levothyroxine 125 MCG TAB PO SCH (06:46)
[2018-06-21] MEDS: Multivitamin Vitamin B Complex (Nephro-Vite) Tab PO SCH (08:03)
[2018-06-21 08:40] VITALS: BP 164/87; PULSE 84; TEMP 97; O2SAT 95
[2018-06-21] MEDS: Aritificial Tears (15ml) OU SCH ×2 (10:11→13:42)
--- NOTE | 2018-06-21 11:05 | CP.PCM.PN ---
Subjective - Date & Time of Evaluation Date of Evaluation: 06/21/18 Time of Evaluation: 10:25 - Subjective Subjective: Patient seen today,states feels better today denies any chest pain, sob , dizziness, pruritus edema to the face improved , no rashes noted left upper extremity swelling improved vss and labs reviewed- a febrile s/p Fistulagram & balloon angioplasty with 10mm stent of Left Inominate Vein POD #2 Objective - Vital Signs/Intake and Output Vital Signs (last 24 hours): Temp Pulse Resp BP Pulse Ox 97.0 F L 84 20 164/87 H 95 06/21/18 08:00 06/21/18 08:00 06/21/18 08:00 06/21/18 08:00 06/21/18 08:00 Intake and Output: 06/21/18 06/21/18 06:59 18:59 Intake Total 200 Balance 200 - Medications Medications: Current Medications Artificial Tears (Artificial Tears) 1 ml OU QID [facility] Last Admin: 06/21/18 10:11 Dose: 1 drop Calcium Acetate (Phoslo) 1,334 mg PO TIDCC [facility] Last Admin: 06/21/18 08:03 Dose: 1,334 mg Dorzolamide HCl (Trusopt) 0.05 ml OU HS [facility] Last Admin: 06/20/18 21:55 Dose: 1 drop Heparin Sodium (Porcine) (Heparin) 5,000 units SC Q12 [facility] Last Admin: 06/21/18 10:11 Dose: Not Given Hydralazine HCl (Apresoline) 50 mg PO Q8H [facility] Last Admin: 06/21/18 06:46 Dose: 50 mg Ibuprofen (Motrin Tab) 400 mg PO Q8H PRN PRN Reason: Pain, moderate (4-7) Last Admin: 06/19/18 01:01 Dose: 400 mg Levetiracetam (Keppra) 500 mg PO Q12 [facility] Last Admin: 06/21/18 10:12 Dose: 500 mg Levothyroxine Sodium (Synthroid) 125 mcg PO DAILY@0630 [facility] Last Admin: 06/21/18 06:46 Dose: 125 mcg Methylprednisolone (Medrol) 8 mg PO ACB [facility] Stop: 06/22/18 07:31 Last Admin: 06/21/18 06:46 Dose: 8 mg Methylprednisolone (Medrol) 4 mg PO ACL [facility] Stop: 06/25/18 11:31 Methylprednisolone (Medrol) 4 mg PO ACD [facility] Stop: 06/24/18 16:31 Methylprednisolone (Medrol) 4 mg PO ACB [facility] Stop: 06/27/18 07:31 Methylprednisolone (Medrol) 4 mg PO HS [facility] Stop: 06/26/18 22:01 Methylprednisolone (Medrol) 8 mg PO HS [facility] Stop: 06/22/18 22:01 Last Admin: 06/20/18 21:53 Dose: 8 mg Timolol Maleate (Timoptic 0.5% Ophth Soln) 0.05 drop OU HS [facility] Last Admin: 06/20/18 22:00 Dose: Not Given Vitamin B Complex/Vit C/Folic Acid (Nephro-Yenny) 1 tab PO 0800 [facility] Last Admin: 06/21/18 08:03 Dose: 1 tab - Labs Labs: 06/20/18 10:43 06/20/18 10:43 PT 12.4 SECONDS (9.7-12.2) H 06/18/18 16:30 INR 1.1 06/18/18 16:30 APTT 35 SECONDS (21-34) H 06/18/18 16:30 Assessment and Plan - Assessment and Plan (Free Text) Assessment: A/P 77yo male, with history of ESRD currently on hemodialysis (T, Th, Sat), admitted for hyperkalemia. K- improved s/p Fistulagram & balloon angioplasty with 10mm stent of Left Inominate Vein POD #2 s/P extra HD YESTERDAY after the procedure d/w Surgical team cleared for discharge home from surgical standpoint and f/u with Dr. Santos office in 7-14 days d/w Dr. Crawford, cleared for discharge neymar today Discharge plan discussed with patient who understands and agrees with plan
--- NOTE | 2018-06-21 20:38 | CP.PCM.PN ---
Subjective - Date & Time of Evaluation Date of Evaluation: 06/21/18 Time of Evaluation: 10:05 - Subjective Subjective: pt was seen and examined by me, follow up consult is dictated #[id number] Objective - Vital Signs/Intake and Output Vital Signs (last 24 hours): Temp Pulse Resp BP Pulse Ox 97.0 F L 84 20 164/87 H 95 06/21/18 08:00 06/21/18 08:00 06/21/18 08:00 06/21/18 08:00 06/21/18 08:00 - Labs Labs: 06/20/18 10:43 06/20/18 10:43 PT 12.4 SECONDS (9.7-12.2) H 06/18/18 16:30 INR 1.1 06/18/18 16:30 APTT 35 SECONDS (21-34) H 06/18/18 16:30
--- NOTE | 2018-06-22 01:06 | PN ---
DATE: 06/21/2018 FOLLOWUP RENAL CONSULTATION LOCATION: The patient is located in room 670, bed B. REQUESTED BY: Dr. Shahida Catherine. REASON FOR RENAL FOLLOWUP: End-stage renal disease, central vein stenosis, continuation of hemodialysis. SUBJECTIVE: Mr. Yeung is a 72-year-old elderly male with a past medical history significant for longstanding hypertension, diabetes, end-stage renal disease, seizure disorder, hypothyroidism, status post right nephrectomy with multiple abdominal abscesses and empyema on the right side of the lung, status post chest tube placement and drainage of multiple abscesses in the past, more than one and half year ago with multiple failed hemodialysis access and multiple MRSA sepsis who was admitted about 2 months ago to [facility] after left upper AV fistula placement with a swelling of the left upper extremity and found to have a central stenosis and left intrajugular PermCath was removed and placed on the femoral area and also underwent angioplasty at the same time. Subsequently, the patient was admitted to [facility] with line sepsis, found to have MRSA sepsis and the line was removed and a new line was placed and treated for MRSA sepsis for about 4-6 weeks of IV antibiotics as per ID recommendations with daptomycin. The patient was seen last week and found to have a swelling of the left upper extremity which is worsening. The patient was referred to Dr. Hartman, seen in the office on Tuesday and last week. The patient was scheduled for angioplasty immediately and the patient was admitted on Tuesday for same day surgery and found to have a potassium more than 7 and procedure was canceled and referred to the ER for further management. Subsequently, the patient was admitted to [facility] and underwent hemodialysis on Tuesday. The patient refused dialysis on Tuesday last week. The patient is feeling better now, no complaints. No chest pain, no palpitation. No fever. No cough. No abdominal pain. No nausea, vomiting, diarrhea. The patient underwent fistulogram and balloon angioplasty with 10-mm stent in the left innominate vein. Now, the patient claims his swelling is improving and he is able to bend his left upper extremity. PHYSICAL EXAMINATION: VITAL SIGNS: As follows: Blood pressure 164/87, pulse 84, respirations 20, temperature 97, saturation 95%. Height 5 feet 8 inches, weight is 165 pounds. GENERAL: Mr. Yeung is a 72-year-old elderly male, moderately built, moderately nourished, not in acute distress. HEENT: Pupils normal, react to light and accommodation. Conjunctivae pink. Sclerae anicteric. Tongue is moist. Trachea is midline. LUNGS: Symmetric on both sides. Bilateral breath sounds present. Clear to auscultation. CARDIOVASCULAR SYSTEM: [place] at the fifth intercostal space, midclavicular line. S1, S2 audible. No murmur or gallop. ABDOMEN: Normal in appearance, soft, tympanitic. No guarding, no rigidity. No hepatosplenomegaly. CENTRAL NERVOUS SYSTEM: The patient is alert, awake and oriented x3. Nonfocal neuro examination. Cranial nerves II-XII grossly intact. Sensory and motor system is within normal limits. EXTREMITIES: No cyanosis, no clubbing, no edema. The patient has swelling of the left upper extremity which is improving since angioplasty. CURRENT MEDICATIONS: Include as follows: Tylenol, calcium acetate 667 mg p.o. t.i.d., Keppra 500 mg every 12 hours, Synthroid 125 mcg daily, Nephro-Yenny 1 tablet daily, hydralazine 50 mg p.o. every 8 hours. LABORATORY DATA: Includes as follows: As of 06/20/2018, WBC 2.5, hemoglobin 10.3, hematocrit is 31.3, platelets 140. Sodium of 135, potassium 5.2, chloride 98, CO2 of 26, BUN 69, creatinine 9.9, glucose 105, calcium 7.7, phosphorus is 7 and magnesium 1.9. ASSESSMENT AND PLAN: In summary, Mr. Yeung is a 72-year-old elderly male with hypertension, diabetes, hypothyroidism, seizure disorder, end-stage renal disease, was admitted with hyperkalemia and left upper extremity swelling. 1. End-stage renal disease. Continue hemodialysis three times a week, Tuesday, , Tuesday. 2. Hyperkalemia, most likely secondary to noncompliance with diet. 3. Hyperphosphatemia, hypocalcemia most likely secondary to secondary hyperparathyroidism and noncompliance with diet. 4. Central stenosis, status post fistulogram, balloon angioplasty, and 10-mm stent placement in the left innominate vein. Continue to monitor and follow up with Vascular Surgery as an outpatient. The patient is being discharged home today this afternoon. The patient will resume his hemodialysis at outpatient hemodialysis unit of [facility], Tuesday, , Tuesday. Thank you for allowing me to participate in your patient's care. Larry Falk MD
== END 2018-06-21 15:45 | disposition home or self-care (01) | DRG 252 ==
LOC: C.ER 13:47 → C.9E 14:21 → C.6T 16:06
PROVIDERS: ADMIT Internal Medicine Nephrology; ATTEND Internal Medicine Nephrology
PROC: 5A1D70Z Performance of Urinary Filtration, Intermittent, Less than 6 Hours Per Day (ICD-10-PCS; principal; 2018-06-17)
PROC: 5A1D70Z Performance of Urinary Filtration, Intermittent, Less than 6 Hours Per Day (ICD-10-PCS; 2018-06-19)
PROC: 03723DZ Dilation of Innominate Artery with Intraluminal Device, Percutaneous Approach (ICD-10-PCS; 2018-06-19)
PROC: 5A1D70Z Performance of Urinary Filtration, Intermittent, Less than 6 Hours Per Day (ICD-10-PCS; 2018-06-20)
DX: T82.7XXA Infection and inflammatory reaction due to other cardiac and vascular devices, implants and grafts, initial encounter (principal); N18.6 End stage renal disease; I12.0 Hypertensive chronic kidney disease with stage 5 chronic kidney disease or end stage renal disease; N25.81 Secondary hyperparathyroidism of renal origin; I87.1 Compression of vein; E87.5 Hyperkalemia; G40.909 Epilepsy, unspecified, not intractable, without status epilepticus; E83.51 Hypocalcemia; E11.22 Type 2 diabetes mellitus with diabetic chronic kidney disease; D63.1 Anemia in chronic kidney disease; Z90.5 Acquired absence of kidney; Z91.11 Patient's noncompliance with dietary regimen; Z99.2 Dependence on renal dialysis; Z91.15 Patient's noncompliance with renal dialysis; Z53.09 Procedure and treatment not carried out because of other contraindication; M89.9 Disorder of bone, unspecified

== ENCOUNTER 2018-07-17 17:54 | Inpatient (IN) | payer MEDICARE ==
[2018-07-17 17:54] VITALS: BMI 26.6
--- NOTE | 2018-07-17 19:25 | C.PDOC ---
History Of Present Illness Patient presents stating his left leg dialysis catheter fell out. He has dialysis //Tue, last dialysis was Tuesday. Denies chest pain or palpitations. Time Seen by Provider: 07/17/18 19:25 Chief Complaint (Nursing): Medical Clearance History Per: Patient History/Exam Limitations: no limitations Onset/Duration Of Symptoms: Days Current Symptoms Are (Timing): Still Present Recent travel outside of the [place]: No Past Medical History Reviewed: Historical Data, Nursing Documentation, Vital Signs Vital Signs: Last Vital Signs Temp 99 F 07/17/18 18:13 Pulse 89 07/17/18 18:13 Resp 18 07/17/18 18:13 BP 188/83 H 07/17/18 18:13 Pulse Ox 95 07/17/18 18:13 - Medical History PMH: HTN, Hypothyroidism, End Stage Renal Disease, Chronic Kidney Disease, Seizures - [facility] Procedures (06/16/18) DILATION OF INNOM ART WITH INTRALUM DEV, PERC APPROACH (06/16/18) DILATION OF LEFT INNOMINATE VEIN, PERCUTANEOUS APPROACH (04/07/18) DILATION OF LEFT SUBCLAVIAN VEIN, PERCUTANEOUS APPROACH (04/07/18) FLUOROSCOPY OF DIALYSIS SHUNT/FISTULA USING L OSM CONTRAST (04/07/18) INSERTION OF INFUSION DEVICE INTO LOWER VEIN, PERC APPROACH (04/07/18) REMOVAL OF INFUSION DEVICE FROM UPPER VEIN, PERC APPROACH (04/07/18) Family History: States: No Known Family Hx - Social History Hx Alcohol Use: No Hx Substance Use: No - Immunization History Hx Tetanus Toxoid Vaccination: No Hx Influenza Vaccination: No Hx Pneumococcal Vaccination: No Review Of Systems Constitutional: Negative for: Fever, Chills Cardiovascular: Negative for: Chest Pain, Palpitations Respiratory: Negative for: Cough, Shortness of Breath Gastrointestinal: Negative for: Nausea, Vomiting Neurological: Negative for: Weakness, Numbness Physical Exam - Physical Exam Appears: Non-toxic Skin: Warm, Dry Head: Normacephalic Oral Mucosa: Moist Chest: Symmetrical, No Tenderness Cardiovascular: Rhythm Regular Respiratory: No Rales, No Rhonchi, No Wheezing Gastrointestinal/Abdominal: Soft, No Tenderness Extremity: Other (Left mid thigh dialysis catheter incision site, no active bleeding.) Neurological/Psych: Oriented x3 ED Course And Treatment - Laboratory Results Result Diagrams: 07/17/18 20:01 ECG: Interpreted By Me, Viewed By Me ECG Rhythm: Sinus Rhythm (77), 1st Degree HB, Nonspecific Changes O2 Sat by Pulse Oximetry: 95 (room air) Pulse Ox Interpretation: Normal - Radiology CXR: Interpreted by Me, Viewed By Me CXR Interpretation: Yes: Infiltrates (lll), Cardiomegaly. No: Fracture Progress Note: EKG, blood work, and CXR ordered. spoke with surgery. emmett see the pt in the ed Critical Care Time - Critical Care Note Total Time (in mins): 30 Documented critical care: time excludes all time spent performing seperately billable procedures. Disposition Discussed With Dr.: Christoph Catherine Comment: accepted the pt on his servce and took over the care at 8:05 PM Doctor Will See Patient In The: Hospital Counseled Patient/Family Regarding: Studies Performed, Diagnosis - Disposition Disposition: HOSPITALIZED Disposition Time: 19:25 Condition: FAIR - POA Present On Arrival: None - Clinical Impression Clinical Impression: ESRD on hemodialysis, Failure of hemodialysis access - Scribe Statement The provider has reviewed the documentation as recorded by the Scribe Lenin Mas All medical record entries made by the Scribe were at my direction and personally dictated by me. I have reviewed the chart and agree that the record accurately reflects my personal performance of the history, physical exam, medical decision making, and the department course for this patient. I have also personally directed, reviewed, and agree with the discharge instructions and disposition. Decision To Admit - Pt Status Changed To: Hospital Disposition Of: Inpatient - Admit Certification Admit to Inpatient:: After my assessment, the patient will require hospitalization for at least two midnights. This is because of the severity of symptoms shown, intensity of services needed, and/or the medical risk in this patient being treated as an outpatient. - InPatient: Physician Admission Certification: I certify that this patient requires 2 or more midnights of care for the following reason:: After my assessment, the patient will require hospitalization for at least two midnights. This is because of the severity of symptoms shown, intensity of services needed, and/or the medical risk in this patient being treated as an outpatient. - . Bed Request Type: Telemetry Admitting Physician: Christoph Catherine Patient Diagnosis: ESRD on hemodialysis, Failure of hemodialysis access
[2018-07-17 20:33] LABS: ALB/GLOB RATIO 1.3 (1.0-2.1); ALBUMIN 4.8 g/dL (3.5-5.0); ALT/SGPT < 6 U/L (21-72); AST/SGOT 42 U/L (17-59); CALCIUM 7.7 mg/dl (8.6-10.4)
--- NOTE | 2018-07-17 20:40 | CP.PCM.PCO ---
Physician Communication Note - Physician Communication Note Physician Communication Note: OR for permacath replacement 07/18
[2018-07-17 20:52] LABS: INR 1.1; PROTHROMBIN TIME 12.4 SECONDS (9.7-12.2)
[2018-07-17 21:51] LABS: BLOOD UREA NITROGEN 101 mg/dL (9-20)
[2018-07-17] MEDS ORDERED: Calcium Gluconate 4.65 MEQ in Dextrose 5% In Water 100 ML IVPB ONE (22:02)
[2018-07-17] MEDS ORDERED: (Novolin R) Insulin Human Regular 100 units/ml vial IVP ONE (22:05)
[2018-07-17] MEDS ORDERED: Dextrose 50% SYRINGE Inj (50 ml) IV STA (22:05)
[2018-07-17] MEDS ORDERED: Sodium Bicarbonate (8.4%) 50 Meq Syringe IVP ONE (22:15)
[2018-07-17] MEDS: Albuterol-Ipratrop 3 mg / 0.5 (3 ml) UD IH SCH (22:59)
[2018-07-17 23:10] LABS: GFR NON-AFRICAN AMERICAN 3
[2018-07-17] MEDS ORDERED: Sod Polystyrene Sulf 15 gm/60 ml Susp ONE (23:20)
[2018-07-17] MEDS ORDERED: Sodium Bicarbonate (8.4%) 50 mEq Vial ONE (23:21)
[2018-07-17 23:23] LABS: EOS % 0.4 % (0.0-4.0); LYMPH # 0.4 K/uL (1.0-4.3)
--- NOTE | 2018-07-17 23:33 | PCM.PROC ---
Procedures Attestation:: I certify that I have explained the specified Operation(s) or Procedure(s), risks, benefits and reasonable alternatives to the Patient and/or other person responsible. The opportunity was given to ask questions and all questions answered - Central Line Placement Right Femoral Hemodialysis Access Aseptic technique was employed throughout the procedure: Hand Hygiene done prior to procedure, Full sterile barriers (mask, hair cover, sterile gown, sterile gloves), Full body sterile drape, Chloraprep Antiseptic: 2 minute prep for Femoral Pt. Placed on Pulse Ox Monitor: Yes Central Line Prep: Chlorhexidine-Alcohol Combination Local Anesthesia Used: Lidocaine 1% Amount of Anesthesia Used (mls): 10 Ultrasound Used for Placement: Yes Central Line Lumen Inserted: double Central Line Length: 16 cm Post Procedure: Sutured in Place, Good Blood Return, All Ports Aspirated, Flushed, Capped, Sterile Dressing Applied Secured by: Suture Post procedure dressing: Gauze, Chlorhexidine disc (Biopatch) Post Procedure X-Ray: No Patient Tolerated Procedure: Well Immediate Complications: None (Right Femoral shiley under US guidance w/ micropuncture kit)
[2018-07-17 23:41] LABS: BASO % 0.5 % (0.0-2.0); HEMOGLOBIN 11.8 g/dL (12.0-18.0); LYMPH % 4.6 % (20.0-40.0); MEAN CELL VOLUME 90.5 fL (80.0-94.0); MEAN CORPUSCULAR HEMOGLOBIN 29.5 pg (27.0-31.0); MEAN CORPUSCULAR HGB CONC 32.6 g/dL (33.0-37.0); MEAN PLATELET VOLUME 7.9 fL (7.2-11.7); MONO % 10.9 % (0.0-10.0); NEUT # 7.8 K/uL (1.8-7.0); NEUT % 83.6 % (50.0-75.0); PLATELET COUNT 149 K/uL (130-400); RBC 4.01 Mil/uL (4.40-5.90); RED CELL DISTRIBUTION WIDTH 18.8 % (11.5-14.5); WHITE BLOOD COUNT 9.4 K/uL (4.8-10.8)
[2018-07-18 00:48] LABS: LYMPHOCYTE 5 % (20-40); MONOCYTE 13 % (0-10); NEUTROPHIL 82 % (50-75); PLATELET ESTIMATE NORMAL (NORMAL); TOTAL CELLS COUNTED 100
[2018-07-18 01:55] LABS: CALCIUM 7.4 mg/dl (8.6-10.4)
[2018-07-18] MEDS: Levothyroxine 125 MCG TAB PO SCH (06:30)
--- NOTE | 2018-07-18 07:04 | CP.PCM.PN ---
Subjective - Date & Time of Evaluation Date of Evaluation: 07/18/18 Time of Evaluation: 07:04 - Subjective Subjective: Medical Progress Note - Dr Steph Catherine's service Patient is a 72 year old male with past medical history of ESRD on HD who preseted to the emergency department needing HD access. Patient states that he had a left groin catheter that fell out. Last dialysis session prior to admission was on Tuesday. He underwent right groin HD placement yesterday. Currently he is tolerating diet. Offers no complaints at this time. He denies headaches, dizziness, chest pain, palpitations, sob, abdominal pain. Allergies: Vancomycin Medication: Keppra 500mg PO Q12H, Hydralazine 50mg PO Q8H, Phoslo 1334mg PO TIDCC, Synthroid 125mcg PO dailu, Nephro-evangelina 1 tab daily Medical History: ESRD on HD Surgical History: L brachiobasilic fistula Social History: Denies alcohol, tobacco, or drug use Family History: Denies Objective - Vital Signs/Intake and Output Vital Signs (last 24 hours): Temp Pulse Resp BP Pulse Ox 98.1 F 92 H 15 140/75 98 07/18/18 05:00 07/18/18 05:00 07/18/18 05:00 07/18/18 05:00 07/18/18 05:00 Intake and Output: 07/18/18 07/18/18 06:59 18:59 Intake Total 0 Balance 0 - Medications Medications: Current Medications Calcium Acetate (Phoslo) 1,334 mg PO TIDCC [facility] Hydralazine HCl (Apresoline) 50 mg PO Q8 [facility] Last Admin: 07/18/18 06:30 Dose: 50 mg Levetiracetam (Keppra) 500 mg PO Q12 [facility] Levothyroxine Sodium (Synthroid) 125 mcg PO DAILY@0630 [facility] Last Admin: 07/18/18 06:30 Dose: 125 mcg Vitamin B Complex/Vit C/Folic Acid (Nephro-Evangelina) 1 tab PO 0800 [facility] - Labs Labs: 07/17/18 23:10 07/18/18 01:16 PT 12.4 SECONDS (9.7-12.2) H 07/17/18 20:01 INR 1.1 07/17/18 20:01 APTT 25 SECONDS (21-34) 07/17/18 20:01 - Constitutional Appears: Non-toxic, No Acute Distress - Head Exam Head Exam: ATRAUMATIC, NORMAL INSPECTION, NORMOCEPHALIC - Eye Exam Eye Exam: EOMI, Normal appearance - Respiratory Exam Respiratory Exam: Clear to Ausculation Bilateral, NORMAL BREATHING PATTERN. absent: Rales, Rhonchi, Wheezes - Cardiovascular Exam Cardiovascular Exam: REGULAR RHYTHM, +S1, +S2 - Exam Additional comments: Right groin shiley c/d/i - Extremities Exam Extremities Exam: Normal Inspection. absent: Calf Tenderness - Neurological Exam Neurological Exam: Alert, Awake, Oriented x3 - Psychiatric Exam Psychiatric exam: Normal Affect, Normal Mood - Skin Skin Exam: Dry, Normal Color, Warm Assessment and Plan - Assessment and Plan (Free Text) Assessment: ESRD on HD TTS, requiring access -Patient with right groin HD shiley -Left arm precautions -Patient for permacath placement tomorrow, NPO for breakfast -Continue nephrovite 1 tab PO daily, Phoslo TIDCC -Vascular on consult, Dr Sanots, help appreciated -Nephrology on consult, help appreciated Hyperkalemia -Potassium 7.7 on admission, now normalized after HD -Monitor electrolytes Hypothyroidism -TSH 21.90 on admission -F/U repeat TSH -Continue Home synthroid 125mcg daily Seizure disorder -Keppra 500mg PO Q12H Hypertension -Hydralazine 50mg Q8H GI/DVT ppx: -No GI ppx indicated at this time -Heparin 5000 Q12H Plan discussed with Dr Steph Grier DO PGY-2
[2018-07-18] MEDS: Multivitamin Vitamin B Complex (Nephro-Vite) Tab PO SCH (08:43)
--- NOTE | 2018-07-18 08:59 | CP.PCM.PN ---
Subjective - Date & Time of Evaluation Date of Evaluation: 07/18/18 Time of Evaluation: 06:55 - Subjective Subjective: Vascular Surgery Dr. Hartman Pt seen and examined @bedside. Pt underwent emergent Shiley catheter placement and hemodialysis overnight for Hyperkalemia. Pt tolerated well w/ no complications. Pt has no complaints this AM. denies F/C, CP, SOB, N/V. Objective - Vital Signs/Intake and Output Vital Signs (last 24 hours): Temp Pulse Resp BP Pulse Ox 98.7 F 82 18 135/66 97 07/18/18 08:00 07/18/18 08:00 07/18/18 08:00 07/18/18 08:00 07/18/18 08:00 Intake and Output: 07/18/18 07/18/18 06:59 18:59 Intake Total 0 0 Balance 0 0 - Medications Medications: Current Medications Calcium Acetate (Phoslo) 1,334 mg PO TIDCC [facility] Last Admin: 07/18/18 08:44 Dose: 1,334 mg Hydralazine HCl (Apresoline) 50 mg PO Q8 [facility] Last Admin: 07/18/18 06:30 Dose: 50 mg Levetiracetam (Keppra) 500 mg PO Q12 [facility] Levothyroxine Sodium (Synthroid) 125 mcg PO DAILY@0630 [facility] Last Admin: 07/18/18 06:30 Dose: 125 mcg Vitamin B Complex/Vit C/Folic Acid (Nephro-Yenny) 1 tab PO 0800 [facility] Last Admin: 07/18/18 08:43 Dose: 1 tab - Labs Labs: 07/17/18 23:10 07/18/18 01:16 PT 12.4 SECONDS (9.7-12.2) H 07/17/18 20:01 INR 1.1 07/17/18 20:01 APTT 25 SECONDS (21-34) 07/17/18 20:01 - Constitutional Appears: Non-toxic, No Acute Distress - Head Exam Head Exam: NORMAL INSPECTION - Eye Exam Eye Exam: Normal appearance - ENT Exam ENT Exam: Mucous Membranes Moist - Respiratory Exam Respiratory Exam: NORMAL BREATHING PATTERN. absent: Accessory Muscle Use, Respiratory Distress - Cardiovascular Exam Cardiovascular Exam: REGULAR RHYTHM. absent: Bradycardia, Tachycardia - GI/Abdominal Exam GI & Abdominal Exam: Soft. absent: Tenderness - Extremities Exam Additional comments: shiley catheter in place site c/d/i - Neurological Exam Neurological Exam: Alert, Awake - Psychiatric Exam Psychiatric exam: Normal Affect, Normal Mood - Skin Skin Exam: Dry, Intact, Normal Color, Warm Assessment and Plan - Assessment and Plan (Free Text) Assessment: 72 y/o M w/ ESRD requiring emergent HD Plan: - f/u AM labs - cont HD per Nephro - cont ICU management - Plan for OR for Permacath placement and AVF revision Pt discussed w/ Dr. Minnie Nolan DO PGY3
--- NOTE | 2018-07-18 09:25 | RAD ---
Date of service: 07/17/2018 PROCEDURE: CHEST RADIOGRAPH, 1 VIEW HISTORY: SOB COMPARISON: 02/03/2018 FINDINGS: LUNGS: Current right lung volume less now than before. Interval right basal airspace opacity along with small right pleural effusion inferred. Concomitant right basal compressive atelectasis and/or infiltrate here needed be considered. Compared the prior study the right pleural effusion is believed increased. Some thickening along the right lateral hemithorax is also suspect. Diffuse concomitant interstitial pulmonary edema pattern suggested. Prior left tunneled catheter inferred as dialysis type-no longer present. Correlate clinically. No pneumothorax seen. Probable trace left inferolateral pleural thickening also present not significantly change with prior study. No interval increase left pleural effusion suggested. PLEURA: Small bilateral pleural effusions that on the right is larger than the left. Increased on the right inferred. Interval increased diffuse pulmonary interstitial edema suspect. No pneumothorax seen. CARDIOVASCULAR: There is presence of aortic atherosclerotic calcification on x-ray. Cardiomegaly-similar Prior tunneled central line-dialysis type catheter removed not present. Interval increased pulmonary venous congestion/interval increased pulmonary interstitial edema inferred. Right axillary vascular stent in place as before OSSEOUS STRUCTURES: . Probable [place] right scapula VISUALIZED UPPER ABDOMEN: Normal. OTHER FINDINGS: None. IMPRESSION: Interval increased right pleural effusion. Concomitant right basal compressive atelectasis and/or infiltrate here suspect. Interval increased pulmonary interstitial edema. Interval removal of prior tunneled catheter. Other findings as above.
[2018-07-18 10:15] LABS: BASO # 0.1 K/uL (0.0-0.2); BASO % 1.1 % (0.0-2.0); EOS # 0.3 K/uL (0.0-0.7); EOS % 4.4 % (0.0-4.0); HEMOGLOBIN 11.7 g/dL (12.0-18.0); LYMPH # 0.4 K/uL (1.0-4.3); LYMPH % 6.7 % (20.0-40.0); MEAN CORPUSCULAR HEMOGLOBIN 29.8 pg (27.0-31.0); MEAN CORPUSCULAR HGB CONC 33.8 g/dL (33.0-37.0); MEAN PLATELET VOLUME 7.5 fL (7.2-11.7); MONO % 16.5 % (0.0-10.0); NEUT # 4.2 K/uL (1.8-7.0); NEUT % 71.3 % (50.0-75.0); PLATELET COUNT 134 K/uL (130-400); RBC 3.93 Mil/uL (4.40-5.90); RED CELL DISTRIBUTION WIDTH 18.6 % (11.5-14.5); WHITE BLOOD COUNT 5.9 K/uL (4.8-10.8)
--- NOTE | 2018-07-18 10:25 | CP.PCM.CON ---
History of Present Illness - History of Present Illness History of Present Illness: pt is seen and examined, full consult is dictated #[id number] 1. hyperkalemia 2. ESRD 3. met. acidosis 4. HTN 5. DM 6. Accidental removal of left fv perma cath by patient s/p rt fv rolando cath s/p hemodialysis f/u k+ level no iv line or blood draw fro left UE f/u with Dr. Santos for new perma cath low na, low K+ diet, dietary evaluation Past Patient History - Infectious Disease Hx of Infectious Diseases: None - Past Medical History & Family History Past Medical History?: Yes - Past Social History Smoking Status: Never Smoked - CARDIAC Hx Hypertension: Yes - PULMONARY Hx Respiratory Disorders: No - NEUROLOGICAL Hx Seizures: Yes - RENAL Date of Last Dialysis Treatment: 07/15/18 - ENDOCRINE/METABOLIC Hx Hypothyroidism: Yes - INTEGUMENTARY Hx Dermatological Problems: No - MUSCULOSKELETAL/RHEUMATOLOGICAL Hx Falls: No - GASTROINTESTINAL Hx Gastrointestinal Disorders: No - GENITOURINARY/GYNECOLOGICAL Other/Comment: hd pt. - PSYCHIATRIC Hx Substance Use: No - SURGICAL HISTORY Hx Surgeries: Yes Other/Comment: Rolando Cath, left upper anterior chest. Non-functioning AV Fistula, right a/c - ANESTHESIA Hx Anesthesia: Yes Hx Anesthesia Reactions: No Meds Allergies/Adverse Reactions: Allergies Allergy/AdvReac Type Severity Reaction Status Date / Time vancomycin AdvReac Severe RASH Verified 06/16/18 14:20 - Medications Medications: Current Medications Calcium Acetate (Phoslo) 1,334 mg PO TIDCC [facility] Last Admin: 07/18/18 08:44 Dose: 1,334 mg Hydralazine HCl (Apresoline) 50 mg PO Q8 [facility] Last Admin: 07/18/18 06:30 Dose: 50 mg Levetiracetam (Keppra) 500 mg PO Q12 [facility] Last Admin: 07/18/18 09:43 Dose: 500 mg Levothyroxine Sodium (Synthroid) 125 mcg PO DAILY@0630 [facility] Last Admin: 07/18/18 06:30 Dose: 125 mcg Vitamin B Complex/Vit C/Folic Acid (Nephro-Yenny) 1 tab PO 0800 [facility] Last Admin: 07/18/18 08:43 Dose: 1 tab Results - Vital Signs Recent Vital Signs: Last Vital Signs Temp 98.7 F 07/18/18 08:00 Pulse 82 03/19/19 08:00 Resp 18 07/18/18 08:00 BP 108/72 07/18/18 09:30 Pulse Ox 97 07/18/18 08:00 - Labs Result Diagrams: 07/18/18 10:08 07/18/18 10:08 Labs: Laboratory Results - last 24 hr 07/17/18 07/17/18 07/17/18 20:01 20:01 23:10 WBC 9.4 D RBC 4.01 L Hgb 11.8 L Hct 36.2 MCV 90.5 MCH 29.5 MCHC 32.6 L RDW 18.8 H Plt Count 149 MPV 7.9 Neut % (Auto) 83.6 H Lymph % (Auto) 4.6 L [place] % (Auto) 10.9 H Eos % (Auto) 0.4 Baso % (Auto) 0.5 Neut # (Auto) 7.8 H Lymph # (Auto) 0.4 L [place] # (Auto) 1.0 H Eos # (Auto) 0.0 Baso # (Auto) 0.0 Neutrophils % (Manual) 82 H Lymphocytes % (Manual) 5 L Monocytes % (Manual) 13 H Platelet Estimate Normal PT 12.4 H INR 1.1 APTT 25 Sodium 135 Potassium 7.7 H* D Chloride 100 Carbon Dioxide 15 L Anion Gap 27 H BUN 101 H* D Creatinine 15.3 H* D Est GFR ( Amer) 4 Est GFR (Non-Af Amer) 3 Random Glucose 120 H Calcium 7.7 L Total Bilirubin 1.0 AST 42 ALT < 6 L D Alkaline Phosphatase 166 H D Total Protein 8.6 H Albumin 4.8 Globulin 3.8 Albumin/Globulin Ratio 1.3 07/18/18 01:16 WBC RBC Hgb Hct MCV MCH MCHC RDW Plt Count MPV Neut % (Auto) Lymph % (Auto) [place] % (Auto) Eos % (Auto) Baso % (Auto) Neut # (Auto) Lymph # (Auto) [place] # (Auto) Eos # (Auto) Baso # (Auto) Neutrophils % (Manual) Lymphocytes % (Manual) Monocytes % (Manual) Platelet Estimate PT INR APTT Sodium 137 Potassium 6.8 H* Chloride 100 Carbon Dioxide 18 L Anion Gap 26 H BUN 103 H* Creatinine 15.3 H* Est GFR ( Amer) 4 Est GFR (Non-Af Amer) 3 Random Glucose 95 D Calcium 7.4 L Total Bilirubin AST ALT Alkaline Phosphatase Total Protein Albumin Globulin Albumin/Globulin Ratio
[2018-07-18 10:40] LABS: MEAN CELL VOLUME 88.1 fL (80.0-94.0)
[2018-07-18 10:57] LABS: HEPATITIS B SURFACE AG Negative (NEGATIVE)
[2018-07-18 11:11] LABS: ALB/GLOB RATIO 1.4 (1.0-2.1); ALBUMIN 4.4 g/dL (3.5-5.0); ALT/SGPT 15 U/L (21-72); AST/SGOT 27 U/L (17-59); BLOOD UREA NITROGEN 61 mg/dL (9-20); CALCIUM 7.7 mg/dl (8.6-10.4); GFR NON-AFRICAN AMERICAN 5
[2018-07-18 11:17] LABS: ANISOCYTOSIS SLIGHT; EOSINOPHIL 4 % (0-4); LYMPHOCYTE 9 % (20-40); MONOCYTE 15 % (0-10); NEUTROPHIL 72 % (50-75); PLATELET ESTIMATE NORMAL (NORMAL); TOTAL CELLS COUNTED 100
[2018-07-18 11:18] LABS: OVALOCYTES SLIGHT
--- NOTE | 2018-07-18 18:23 | CP.PCM.HP ---
Past Patient History - Infectious Disease Hx of Infectious Diseases: None - Past Medical History & Family History Past Medical History?: Yes - Past Social History Smoking Status: Never Smoked - CARDIAC Hx Hypertension: Yes - PULMONARY Hx Respiratory Disorders: No - NEUROLOGICAL Hx Seizures: Yes - RENAL Date of Last Dialysis Treatment: 07/15/18 - ENDOCRINE/METABOLIC Hx Hypothyroidism: Yes - INTEGUMENTARY Hx Dermatological Problems: No - MUSCULOSKELETAL/RHEUMATOLOGICAL Hx Falls: No - GASTROINTESTINAL Hx Gastrointestinal Disorders: No - GENITOURINARY/GYNECOLOGICAL Other/Comment: hd pt. - PSYCHIATRIC Hx Substance Use: No - SURGICAL HISTORY Hx Surgeries: Yes Other/Comment: Stefano Cath, left upper anterior chest. Non-functioning AV Fistula, right a/c - ANESTHESIA Hx Anesthesia: Yes Hx Anesthesia Reactions: No Meds Allergies/Adverse Reactions: Allergies Allergy/AdvReac Type Severity Reaction Status Date / Time vancomycin AdvReac Severe RASH Verified 06/16/18 14:20 Physical Exam - Constitutional Appears: Well - Head Exam Head Exam: ATRAUMATIC, NORMAL INSPECTION, NORMOCEPHALIC - Eye Exam Eye Exam: EOMI, Normal appearance, PERRL Pupil Exam: NORMAL ACCOMODATION, PERRL - ENT Exam ENT Exam: Mucous Membranes Moist, Normal Exam - Neck Exam Neck exam: Positive for: Normal Inspection - Respiratory Exam Respiratory Exam: Decreased Breath Sounds - Cardiovascular Exam Cardiovascular Exam: REGULAR RHYTHM, +S1, +S2 - GI/Abdominal Exam GI & Abdominal Exam: Diminished Bowel Sounds, Soft - Rectal Exam Rectal Exam: Deferred Results - Vital Signs Recent Vital Signs: Last Vital Signs Temp 98.4 F 07/18/18 16:00 Pulse 76 07/18/18 16:00 Resp 18 07/18/18 16:00 BP 117/53 L 07/18/18 16:00 Pulse Ox 97 07/18/18 08:00 - Labs Result Diagrams: 07/18/18 10:08 07/18/18 10:08 Labs: Laboratory Results - last 24 hr 07/17/18 07/17/18 07/17/18 20:01 20:01 23:10 WBC 9.4 D RBC 4.01 L Hgb 11.8 L Hct 36.2 MCV 90.5 MCH 29.5 MCHC 32.6 L RDW 18.8 H Plt Count 149 MPV 7.9 Neut % (Auto) 83.6 H Lymph % (Auto) 4.6 L [place] % (Auto) 10.9 H Eos % (Auto) 0.4 Baso % (Auto) 0.5 Neut # (Auto) 7.8 H Lymph # (Auto) 0.4 L [place] # (Auto) 1.0 H Eos # (Auto) 0.0 Baso # (Auto) 0.0 Neutrophils % (Manual) 82 H Lymphocytes % (Manual) 5 L Monocytes % (Manual) 13 H Eosinophils % (Manual) Platelet Estimate Normal Anisocytosis (manual) Ovalocytes PT 12.4 H INR 1.1 APTT 25 Sodium 135 Potassium 7.7 H* D Chloride 100 Carbon Dioxide 15 L Anion Gap 27 H BUN 101 H* D Creatinine 15.3 H* D Est GFR ( Amer) 4 Est GFR (Non-Af Amer) 3 Random Glucose 120 H Calcium 7.7 L Total Bilirubin 1.0 AST 42 ALT < 6 L D Alkaline Phosphatase 166 H D Total Protein 8.6 H Albumin 4.8 Globulin 3.8 Albumin/Globulin Ratio 1.3 TSH 3rd Generation Hep Bs Antigen Hep B Core IgM Ab 07/18/18 07/18/18 07/18/18 01:16 10:08 10:08 WBC 5.9 RBC 3.93 L Hgb 11.7 L Hct 34.7 L MCV 88.1 D MCH 29.8 MCHC 33.8 RDW 18.6 H Plt Count 134 MPV 7.5 Neut % (Auto) 71.3 Lymph % (Auto) 6.7 L [place] % (Auto) 16.5 H Eos % (Auto) 4.4 H Baso % (Auto) 1.1 Neut # (Auto) 4.2 Lymph # (Auto) 0.4 L [place] # (Auto) 1.0 H Eos # (Auto) 0.3 Baso # (Auto) 0.1 Neutrophils % (Manual) 72 Lymphocytes % (Manual) 9 L Monocytes % (Manual) 15 H Eosinophils % (Manual) 4 Platelet Estimate Normal Anisocytosis (manual) Slight Ovalocytes Slight PT INR APTT Sodium 137 135 Potassium 6.8 H* 4.4 Chloride 100 95 L Carbon Dioxide 18 L 27 Anion Gap 26 H 18 BUN 103 H* 61 H Creatinine 15.3 H* 10.7 H* D Est GFR ( Amer) 4 6 Est GFR (Non-Af Amer) 3 5 Random Glucose 95 D 133 H D Calcium 7.4 L 7.7 L Total Bilirubin 0.7 AST 27 ALT 15 L D Alkaline Phosphatase 161 H Total Protein 7.7 Albumin 4.4 Globulin 3.3 Albumin/Globulin Ratio 1.4 TSH 3rd Generation 21.90 H Hep Bs Antigen Negative Hep B Core IgM Ab 07/18/18 17:02 WBC RBC Hgb Hct MCV MCH MCHC RDW Plt Count MPV Neut % (Auto) Lymph % (Auto) [place] % (Auto) Eos % (Auto) Baso % (Auto) Neut # (Auto) Lymph # (Auto) [place] # (Auto) Eos # (Auto) Baso # (Auto) Neutrophils % (Manual) Lymphocytes % (Manual) Monocytes % (Manual) Eosinophils % (Manual) Platelet Estimate Anisocytosis (manual) Ovalocytes PT INR APTT Sodium Potassium Chloride Carbon Dioxide Anion Gap BUN Creatinine Est GFR ( Amer) Est GFR (Non-Af Amer) Random Glucose Calcium Total Bilirubin AST ALT Alkaline Phosphatase Total Protein Albumin Globulin Albumin/Globulin Ratio TSH 3rd Generation Hep Bs Antigen Hep B Core IgM Ab Negative
--- NOTE | 2018-07-19 06:53 | CON ---
DATE: 07/18/2018 RENAL CONSULTATION LOCATION: The patient is located in ICU, [facility], room 4. REQUESTED BY: Shahida Catherine MD REASON FOR FOLLOWUP: Severe hyperkalemia, metabolic acidosis, end-stage renal disease, accidental removal of the left femoral Perm-A-Cath, for emergency hemodialysis. HISTORY OF PRESENT ILLNESS: Mr. Yeung is a 72-year-old elderly male with a past medical history significant for longstanding diabetes, hypertension, history of pyelonephritis, perinephric abscess, multiple abdominal abscess, thoracic empyema, status post right nephrectomy, also multiple chest tube and abdominal drains in the past; end-stage renal disease, on hemodialysis, three times a week, Tuesday, , Tuesday, also multiple MRSA sepsis with removal of the right upper extremity AV graft, line sepsis in the past, status post left upper extremity AV fistula placement, also with some subclavian innominate stenosis, status post angioplasty x2 in the last 2 months with left femoral vein catheter who was recently treated for MRSA sepsis in [facility], was presented to the emergency room with Perm-A-Cath, dislodged, family brought the Perm-A-Cath and requesting to replace. The patient was found to have severe hyperkalemia. The patient was admitted for further management of hyperkalemia and acidosis. The patient claims his catheter came out accidentally in the sleep. Slight bleeding as per the patient. Denies any chest pain or palpitation. Denies any fever or cough. No abdominal pain. No nausea, vomiting, diarrhea. The patient was initially treated medically for hyperkalemia and admitted to ICU for monitoring. The patient underwent right femoral vein Stefano catheter placement last night and underwent hemodialysis early this morning for severe hyperkalemia. The patient is not in acute distress at this time. PAST MEDICAL HISTORY: Significant for longstanding hypertension, diabetes, hypothyroidism, seizure disorder, end-stage renal disease, hypothyroidism. PAST SURGICAL HISTORY: Status post right nephrectomy, also status post removal of the right upper extremity AV graft, multiple Perm-A-Cath on the chest wall, also multiple femoral vein catheters. The last one is on the left femoral vein which was dislodged yesterday. ALLERGIES: ALLERGIC TO VANCOMYCIN. SOCIAL HISTORY: No smoking, no alcohol, no drugs. PERSONAL HISTORY: He has a very supportive sister and daughter. FAMILY HISTORY: Not significant. CURRENT MEDICATIONS: Include hydralazine 50 mg p.o. every 8 hours, subcu heparin on hold, Keppra 500 mg p.o. every 12 hours, Nephro-Yenny 1 tablet daily, calcium is 667 mg 2 tablets p.o. t.i.d., levothyroxine 125 mcg p.o. daily. REVIEW OF SYSTEMS: Significant for dislodged left femoral Perm-A-Cath, also significant for hyperkalemia. PHYSICAL EXAMINATION: VITAL SIGNS: On admission, blood pressure 188/83, pulse 89, respiration 18, temperature 99, saturation 95%. Height 5 feet 8 inches, weight is 158 pounds. His blood pressure this morning 135/66, pulse 82, respiration 18, temperature 98.7, saturation 97%. GENERAL: Mr. Yeung is 72-year-old elderly male, moderately built, moderately nourished, not in acute distress. HEENT: Pupils normal, reactive to light and accommodation. Conjunctivae pink. Sclerae are anicteric. Tongue is moist and trachea is midline. LUNGS: Symmetric on both sides. Bilateral breath sounds present. Clear to auscultation. CVS: [place] at the fifth intercostal space, midclavicular line. S1 and S2 audible. No murmur or gallop. Abdomen: Normal in appearance, soft, tympanitic. No guarding. No rigidity. No hepatosplenomegaly. SHEET TESTER: The patient is alert, awake oriented x2-3. Sensory and motor system is within normal limits. EXTREMITIES: No cyanosis, no clubbing, no edema. LABORATORY DATA: Include as follows: WBC 5.9, hemoglobin 11.7, hematocrit 34.7, platelets 134. Sodium 135, potassium 4.4, chloride 95, CO2 of 27, BUN 61, creatinine 10.7, glucose 133, calcium 7.7. Total bili 0.7, AST 27, ALT 15, alkaline phosphatase 161, total protein 7.7, albumin 4.4. TSH is 21.9, hepatitis B surface antigen negative, hepatitis B core antibody is negative. His labs as of 07/17/2018 on admission, WBC 9.4, hemoglobin 11.8, hematocrit 36.2, platelets 149. PT 12.4, PTT 25. Sodium 135, potassium 7.7, chloride 100, CO2 15, BUN 101, creatinine is 15.3, glucose 120, calcium 7.7. Total bili 1, AST 42, ALT is less than six, alkaline phos of 166, total protein 8.6, albumin 4.8. Repeat potassium after medical management is 6.8, BUN, creatinine 103 over 15.3, bicarb is 18. Chest x-ray as of 07/17/2018, interval increase of right pleural effusion, concomitant right basal compression atelectasis and/or infiltrate, suspect interval increased pulmonary interstitial edema, interval removal of prior tunneled catheter. ASSESSMENT: In summary, Mr. Yeung is a 72-year-old elderly male with a history of longstanding diabetes, hypertension, hypothyroidism, seizure disorder, multiple methicillin-resistant staphylococcus aureus sepsis, status post angioplasty of the left upper extremity arteriovenous fistula, angioplasty of the left innominate vein, was admitted to the emergency room with accidental removal of the left femoral vein Perm-A-Cath and severe hyperkalemia. 1. End-stage renal disease. 2. Severe hyperkalemia secondary to end-stage renal disease and noncompliance with diet. 3. Hypertension. 4. Diabetes. 5. Hypothyroidism. 6. Seizure disorder. 7. Metabolic acidosis secondary to renal failure. PLAN: The patient was seen by Vascular Surgery and the patient had right femoral vein Stefano catheter placed last night. The patient was dialyzed early this morning and repeat potassium is within normal limits. Continue his current medications, Nephro-Yenny, also calcium acetate. Continue Synthroid. Continue Keppra and follow up with Vascular Surgery for a new Perm-A-Cath placement. Left upper extremity AV fistula is not matured yet. The patient is not doing any exercise, advised to do a exercise regularly with stress ball, also advised low-sodium and low-potassium diet, also dietary evaluation. Next hemodialysis in a.m. Thank you for allowing me to participate in your patient's care. Larry Falk MD
[2018-07-19] MEDS: Levothyroxine 125 MCG TAB PO SCH (07:00)
--- NOTE | 2018-07-19 07:15 | CP.PCM.PN ---
Subjective - Date & Time of Evaluation Date of Evaluation: 07/19/18 Time of Evaluation: 07:14 - Subjective Subjective: Medicine Progress Note - Dr Steph aCtherine's service Patient seen and examined at bedside. Per nursing no acute events overnight. Patient is doing well, offers no complaints at this time. Patient for hemodialysis today. Plan for OR tomorrow. Objective - Vital Signs/Intake and Output Vital Signs (last 24 hours): Temp Pulse Resp BP Pulse Ox 98.3 F 81 18 134/66 97 07/19/18 00:00 07/18/18 20:00 07/18/18 20:00 07/18/18 20:00 07/18/18 08:00 - Medications Medications: Current Medications Calcium Acetate (Phoslo) 1,334 mg PO TIDCC [facility] Last Admin: 07/18/18 16:12 Dose: 1,334 mg Heparin Sodium (Porcine) (Heparin) 5,000 units SC Q12 [facility] Last Admin: 07/18/18 22:00 Dose: 5,000 units Hydralazine HCl (Apresoline) 50 mg PO Q8 [facility] Last Admin: 07/18/18 22:00 Dose: 50 mg Levetiracetam (Keppra) 500 mg PO Q12 [facility] Last Admin: 07/18/18 22:00 Dose: 500 mg Levothyroxine Sodium (Synthroid) 125 mcg PO DAILY@0630 [facility] Last Admin: 07/18/18 06:30 Dose: 125 mcg Vitamin B Complex/Vit C/Folic Acid (Nephro-Yenny) 1 tab PO 0800 [facility] Last Admin: 07/18/18 08:43 Dose: 1 tab - Labs Labs: 07/18/18 10:08 07/18/18 10:08 PT 12.4 SECONDS (9.7-12.2) H 07/17/18 20:01 INR 1.1 07/17/18 20:01 APTT 25 SECONDS (21-34) 07/17/18 20:01 - Additional Findings Additional findings: - Constitutional Appears: Non-toxic, No Acute Distress - Head Exam Head Exam: ATRAUMATIC, NORMAL INSPECTION, NORMOCEPHALIC - Eye Exam Eye Exam: EOMI, Normal appearance - Respiratory Exam Respiratory Exam: Clear to Ausculation Bilateral, NORMAL BREATHING PATTERN. absent: Rales, Rhonchi, Wheezes - Cardiovascular Exam Cardiovascular Exam: REGULAR RHYTHM, +S1, +S2 - Exam Additional comments: Right groin shiley c/d/i - Extremities Exam Extremities Exam: Normal Inspection. absent: Calf Tenderness - Neurological Exam Neurological Exam: Alert, Awake, Oriented x3 - Psychiatric Exam Psychiatric exam: Normal Affect, Normal Mood - Skin Skin Exam: Dry, Normal Color, Warm Assessment and Plan - Assessment and Plan (Free Text) Assessment: ESRD on HD TTS, requiring access -Patient with right groin HD shiley -Left arm precautions -Patient for permacath placement tomorrow, NPO for breakfast -Continue nephrovite 1 tab PO daily, Phoslo TIDCC -Vascular on consult, Dr Santos, help appreciated -Nephrology on consult, help appreciated Hyperkalemia -Potassium 7.7 on admission, now normalized after HD -Monitor electrolytes Hypothyroidism -TSH 21.90 on admission -F/U repeat TSH -Continue Home synthroid 125mcg daily Seizure disorder -Keppra 500mg PO Q12H Hypertension -Hydralazine 50mg Q8H GI/DVT ppx: -No GI ppx indicated at this time -Heparin 5000 Q12H Plan discussed with Dr Steph Grier DO PGY-2
[2018-07-19 07:34] LABS: BASO # 0.1 K/uL (0.0-0.2); BASO % 0.8 % (0.0-2.0); EOS # 0.7 K/uL (0.0-0.7); EOS % 10.1 % (0.0-4.0); HEMOGLOBIN 11.6 g/dL (12.0-18.0); LYMPH # 0.7 K/uL (1.0-4.3); LYMPH % 10.2 % (20.0-40.0); MEAN CELL VOLUME 87.8 fL (80.0-94.0); MEAN PLATELET VOLUME 7.5 fL (7.2-11.7); MONO # 1.2 K/uL (0.0-0.8); MONO % 18.8 % (0.0-10.0); NEUT # 3.9 K/uL (1.8-7.0); NEUT % 60.1 % (50.0-75.0); RBC 3.98 Mil/uL (4.40-5.90); RED CELL DISTRIBUTION WIDTH 18.1 % (11.5-14.5); WHITE BLOOD COUNT 6.5 K/uL (4.8-10.8)
[2018-07-19 08:19] LABS: ALB/GLOB RATIO 1.3 (1.0-2.1); ALBUMIN 4.1 g/dL (3.5-5.0); CALCIUM 7.4 mg/dl (8.6-10.4)
[2018-07-19] MEDS: Multivitamin Vitamin B Complex (Nephro-Vite) Tab PO SCH (09:03)
--- NOTE | 2018-07-19 11:19 | CP.PCM.PN ---
Subjective - Date & Time of Evaluation Date of Evaluation: 07/19/18 Time of Evaluation: 11:16 - Subjective Subjective: SURGERY NOTE FOR DR. JOHNS 72M seen and examined at bedside. Patient ESRD requiring dialysis. Consented for OR. Objective - Vital Signs/Intake and Output Vital Signs (last 24 hours): Temp Pulse Resp BP Pulse Ox 98.2 F 82 20 135/75 95 07/19/18 08:00 07/19/18 08:00 07/19/18 08:00 07/19/18 08:00 07/19/18 08:00 Intake and Output: 07/19/18 07/19/18 06:59 18:59 Intake Total 240 Output Total 0 Balance 240 - Medications Medications: Current Medications Calcium Acetate (Phoslo) 1,334 mg PO TIDCC [facility] Last Admin: 07/19/18 08:58 Dose: 1,334 mg Heparin Sodium (Porcine) (Heparin) 5,000 units SC Q12 [facility] Last Admin: 07/18/18 22:00 Dose: 5,000 units Hydralazine HCl (Apresoline) 50 mg PO Q8 [facility] Last Admin: 07/19/18 06:00 Dose: 50 mg Levetiracetam (Keppra) 500 mg PO Q12 [facility] Last Admin: 07/19/18 10:00 Dose: 500 mg Levothyroxine Sodium (Synthroid) 125 mcg PO DAILY@0630 [facility] Last Admin: 07/19/18 07:00 Dose: 125 mcg Vitamin B Complex/Vit C/Folic Acid (Nephro-Yenny) 1 tab PO 0800 [facility] Last Admin: 07/19/18 09:03 Dose: 1 tab - Labs Labs: 07/19/18 07:27 07/19/18 07:27 PT 12.4 SECONDS (9.7-12.2) H 07/17/18 20:01 INR 1.1 07/17/18 20:01 APTT 25 SECONDS (21-34) 07/17/18 20:01 - Constitutional Appears: Non-toxic, No Acute Distress - Respiratory Exam Respiratory Exam: Clear to Ausculation Bilateral, NORMAL BREATHING PATTERN - Cardiovascular Exam Cardiovascular Exam: REGULAR RHYTHM, +S1, +S2 - GI/Abdominal Exam GI & Abdominal Exam: Soft. absent: Distended, Firm, Guarding, Rigid, Tenderness, Rebound Assessment and Plan - Assessment and Plan (Free Text) Assessment: 72M with ESRD requiring dialysis Plan: - patient going to OR tomorrow for permacath placement and AVF revision Further rec discuss with Dr. Minnie Garza, PGY3
--- NOTE | 2018-07-19 18:18 | CP.PCM.PN ---
Subjective - Date & Time of Evaluation Date of Evaluation: 07/19/18 Time of Evaluation: 18:18 - Subjective Subjective: pt is seen and examined, follow up consult is dictated, s/p hd today#[id number] for hd again tomorrow after perma cath placement Objective - Vital Signs/Intake and Output Vital Signs (last 24 hours): Temp Pulse Resp BP Pulse Ox 97.3 F L 75 16 117/62 97 07/19/18 17:10 07/19/18 17:10 07/19/18 16:00 07/19/18 17:10 07/19/18 17:10 Intake and Output: 07/19/18 07/19/18 06:59 18:59 Intake Total 240 700 Output Total 0 0 Balance 240 700 - Medications Medications: Current Medications Calcium Acetate (Phoslo) 1,334 mg PO TIDCC [facility] Last Admin: 07/19/18 17:56 Dose: 1,334 mg Heparin Sodium (Porcine) (Heparin) 5,000 units SC Q12 [facility] Last Admin: 07/19/18 12:23 Dose: 5,000 units Hydralazine HCl (Apresoline) 50 mg PO Q8 [facility] Last Admin: 07/19/18 14:26 Dose: Not Given Levetiracetam (Keppra) 500 mg PO Q12 [facility] Last Admin: 07/19/18 10:00 Dose: 500 mg Levothyroxine Sodium (Synthroid) 125 mcg PO DAILY@0630 [facility] Last Admin: 07/19/18 07:00 Dose: 125 mcg Vitamin B Complex/Vit C/Folic Acid (Nephro-Yenny) 1 tab PO 0800 [facility] Last Admin: 07/19/18 09:03 Dose: 1 tab - Labs Labs: 07/19/18 07:27 07/19/18 07:27 PT 12.4 SECONDS (9.7-12.2) H 07/17/18 20:01 INR 1.1 07/17/18 20:01 APTT 25 SECONDS (21-34) 07/17/18 20:01
--- NOTE | 2018-07-19 19:44 | CP.PCM.PN ---
Subjective - Date & Time of Evaluation Date of Evaluation: 07/19/18 Time of Evaluation: 12:45 - Subjective Subjective: clinically same Objective - Vital Signs/Intake and Output Vital Signs (last 24 hours): Temp Pulse Resp BP Pulse Ox 97.3 F L 75 16 117/62 97 07/19/18 17:10 07/19/18 17:10 07/19/18 16:00 07/19/18 17:10 07/19/18 17:10 Intake and Output: 07/19/18 07/20/18 18:59 06:59 Intake Total 700 Output Total 0 Balance 700 - Medications Medications: Current Medications Calcium Acetate (Phoslo) 1,334 mg PO TIDCC [facility] Last Admin: 07/19/18 17:56 Dose: 1,334 mg Heparin Sodium (Porcine) (Heparin) 5,000 units SC Q12 [facility] Last Admin: 07/19/18 12:23 Dose: 5,000 units Hydralazine HCl (Apresoline) 50 mg PO Q8 [facility] Last Admin: 07/19/18 14:26 Dose: Not Given Levetiracetam (Keppra) 500 mg PO Q12 [facility] Last Admin: 07/19/18 10:00 Dose: 500 mg Levothyroxine Sodium (Synthroid) 125 mcg PO DAILY@0630 [facility] Last Admin: 07/19/18 07:00 Dose: 125 mcg Vitamin B Complex/Vit C/Folic Acid (Nephro-Yenny) 1 tab PO 0800 [facility] Last Admin: 07/19/18 09:03 Dose: 1 tab - Labs Labs: 07/19/18 07:27 07/19/18 07:27 PT 12.4 SECONDS (9.7-12.2) H 07/17/18 20:01 INR 1.1 07/17/18 20:01 APTT 25 SECONDS (21-34) 07/17/18 20:01 - Constitutional Appears: Well - Head Exam Head Exam: ATRAUMATIC, NORMAL INSPECTION, NORMOCEPHALIC - Eye Exam Eye Exam: EOMI, Normal appearance, PERRL Pupil Exam: NORMAL ACCOMODATION, PERRL - ENT Exam ENT Exam: Mucous Membranes Moist, Normal Exam - Neck Exam Neck Exam: Full ROM, Normal Inspection. absent: Lymphadenopathy - Respiratory Exam Respiratory Exam: Decreased Breath Sounds - Cardiovascular Exam Cardiovascular Exam: REGULAR RHYTHM, +S1, +S2 - GI/Abdominal Exam GI & Abdominal Exam: Soft, Diminished Bowel Sounds - Rectal Exam Rectal Exam: Deferred
--- NOTE | 2018-07-19 22:42 | CARD ---
APPROVED REPORT Date of service: 07/17/2018 EKG Measurement Heart [id number] <Conclusion> Sinus rhythm with 1st degree AV block Right superior axis deviation Pulmonary disease pattern Abnormal ECG
--- NOTE | 2018-07-20 01:51 | PN ---
DATE: 07/19/2018 FOLLOWUP RENAL CONSULTATION LOCATION: The patient is located in ICU, room 4, on telemetry. REQUESTED BY: Shahida Catherine MD REASON FOR FOLLOWUP: End-stage renal disease and dislodged left femoral vein PermCath. HISTORY OF PRESENT ILLNESS: Ms. Yeung is a 72-year-old elderly male with a history of longstanding hypertension, diabetes, end-stage renal disease, status post right nephrectomy, MRSA sepsis in the past, multiple PermCath, status post angioplasty of the left AV fistula and left innominate vein who was admitted after he accidentally pulled his left femoral vein PermCath with slight bleeding and also found to have severe hyperkalemia, requiring emergency hemodialysis. The patient is feeling better, not in acute distress, out of bed to chair. No chest pain. No palpitation. No fever. No cough. No abdominal pain. No nausea, vomiting, diarrhea. PHYSICAL EXAMINATION: VITAL SIGNS: As follows: Blood pressure 117/62, pulse 75, respirations about 16, temperature 97.6, saturation 97%. Height 5 feet 8 inches, weight is 159 pounds. GENERAL: Mr. Yeung is a 72-year-old elderly male, moderately built, moderately nourished, not in distress. HEENT: Pupils normal and reactive to light and accommodation. Conjunctivae pink. Sclerae anicteric. Tongue is moist. Trachea is midline. LUNGS: Symmetric on both sides. Bilateral breath sounds present. Clear to auscultation. CARDIOVASCULAR SYSTEM: Patriot at the fifth intercostal space, midclavicular line. S1, S2 audible. No murmur or gallop. ABDOMEN: Normal in appearance, soft, tympanitic. No guarding. No rigidity. No hepatosplenomegaly. CENTRAL NERVOUS SYSTEM: The patient is alert, awake, and oriented times two to three. Sensory and motor system is within normal limits. EXTREMITIES: No cyanosis, no clubbing, no edema. MEDICATIONS: His current medications include as follows: Hydralazine 50 mg p.o. every 8 hours, subcu heparin 5000 units every 12 hours, Keppra 500 mg p.o. every 12 hours, Nephro-Yenny 1 tablet p.o. daily, calcium acetate 667 mg 2 tablets p.o. t.i.d., Synthroid 125 mcg p.o. daily. LABORATORY DATA: Include as follows: As of 07/19/2018, WBC 6.5, hemoglobin 11.6, hematocrit 35, platelets 159. Sodium 135, potassium 5, chloride 97, CO2 of 23, BUN 86, creatinine 12.8, glucose is 92, calcium is 7.4, phosphorus is 7.5, total bili 0.6, AST 30, ALT 10, alkaline phos of 157, total protein 7.2, albumin is 4.1. TSH is 22.1. Hepatitis B surface antibody is negative, surface antigen negative and hepatitis B core antibody IgM is negative. MRSA screening is negative and blood culture x2 is negative day one. IMPRESSION AND PLAN: In summary, Mr. Yeung is a 72-year-old elderly male with history of longstanding hypertension, diabetes, end-stage renal disease, hypothyroidism, seizure disorder who was admitted with severe hyperkalemia after pulling PermCath accidentally in sleep. 1. End-stage renal disease. Continue hemodialysis three times a week. 2. Hypertension. 3. Diabetes. 4. Hypothyroidism. Continue Synthroid and adjusting the dose as per Endocrinology. Also continue Keppra, and we will increase the calcium acetate 667 mg 3 tablets p.o. t.i.d. with food. Follow with Vascular Surgery for PermCath placement, and we will schedule for hemodialysis tomorrow to keep his outpatient dialysis schedule Tuesday, , Tuesday. Thank you for allowing me to participate in your patient's care. Larry Falk MD
[2018-07-20] MEDS: Levothyroxine 125 MCG TAB PO SCH (06:17)
[2018-07-20] MEDS ORDERED: HEPARIN-NS 5,000 UNITS/500 ML 5,000 UNIT/500 ML BAG IV ONE (07:09)
[2018-07-20] MEDS ORDERED: ceFAZolin 1 gm in NS 2 GM/200 ML BAG IVPB ONE (07:09)
[2018-07-20] MEDS: Multivitamin Vitamin B Complex (Nephro-Vite) Tab PO SCH (07:44)
[2018-07-20] MEDS ORDERED: Midazolam 2 MG/2 ML VIAL ONE (07:55)
[2018-07-20] MEDS ORDERED: Propofol 10 mg/ml Inj (20 ML) ONE (07:56)
[2018-07-20 08:00] LABS: BASO % 0.9 % (0.0-2.0); EOS # 0.7 K/uL (0.0-0.7); EOS % 12.7 % (0.0-4.0); HEMOGLOBIN 11.6 g/dL (12.0-18.0); LYMPH # 0.7 K/uL (1.0-4.3); LYMPH % 14.4 % (20.0-40.0); MEAN CELL VOLUME 87.9 fL (80.0-94.0); MEAN CORPUSCULAR HEMOGLOBIN 29.1 pg (27.0-31.0); MEAN CORPUSCULAR HGB CONC 33.1 g/dL (33.0-37.0); MEAN PLATELET VOLUME 7.7 fL (7.2-11.7); MONO # 0.8 K/uL (0.0-0.8); MONO % 15.3 % (0.0-10.0); NEUT # 2.9 K/uL (1.8-7.0); NEUT % 56.7 % (50.0-75.0); RBC 4.01 Mil/uL (4.40-5.90); RED CELL DISTRIBUTION WIDTH 18.1 % (11.5-14.5); WHITE BLOOD COUNT 5.2 K/uL (4.8-10.8)
[2018-07-20 08:27] LABS: ALB/GLOB RATIO 1.3 (1.0-2.1); ALBUMIN 4.3 g/dL (3.5-5.0); CALCIUM 7.8 mg/dl (8.6-10.4)
--- NOTE | 2018-07-20 10:51 | RAD ---
Date of service: 07/19/2018 HISTORY: evaluate pleural effusion COMPARISON: 07/17/2018 FINDINGS: LUNGS: No active pulmonary disease. PLEURA: No significant pleural effusion identified, no pneumothorax apparent. CARDIOVASCULAR: No aortic atherosclerotic calcification present. Normal cardiac size. No pulmonary vascular congestion. OSSEOUS STRUCTURES: No significant abnormalities. VISUALIZED UPPER ABDOMEN: Normal. OTHER FINDINGS: None. IMPRESSION: No active disease.
[2018-07-20] MEDS ORDERED: Neostigmine 1:1000 (1 mg/ml) Inj ONE (11:20)
[2018-07-20] MEDS ORDERED: HYDROmorphone 0.5 mg/0.5 ml ISec IVP PRN (11:26)
--- NOTE | 2018-07-20 11:35 | PCM.SURG1 ---
Surgeon's Initial Post Op Note - Surgeon's Notes Surgeon: Dr. Hartman Radial Arm Saw Operator: Dr. Nolan PGY3 Type of Anesthesia: General Endo Pre-Operative Diagnosis: ESRD on HD, central vein stenosis, immature AVF Operative Findings: see dictation Post-Operative Diagnosis: same Operation Performed: shiley removal, permacath placement; revision of Left AVF Specimen/Specimens Removed: none Estimated Blood Loss: EBL {In ML}: 150 Blood Products Given: N/A Drains Used: No Drains Post-Op Condition: Good Date of Surgery/Procedure: 07/20/18 Time of Surgery/Procedure: 11:35
[2018-07-20] MEDS ORDERED: Oxycodone/Acetaminophen 5/325 mg Tab PO PRN (11:37)
--- NOTE | 2018-07-20 11:37 | CP.PCM.PN ---
Subjective - Date & Time of Evaluation Date of Evaluation: 07/20/18 Time of Evaluation: 14:53 - Subjective Subjective: Patient seen and examined at bedside during dialysis. No overnight events reported. Patient is status post shiley removal, permcath placement, and revision of left AVF. Patient now only complains of pain at surgical site. He does not want percocet. He denies any fevers, chest pain, shortness of breath, abdominal pain, nausea, vomiting, or changes in bowel habits. Objective - Vital Signs/Intake and Output Vital Signs (last 24 hours): Temp Pulse Resp BP Pulse Ox 98.1 F 81 18 117/72 97 07/20/18 05:40 07/20/18 05:40 07/20/18 05:40 07/20/18 05:40 07/20/18 05:40 Intake and Output: 07/20/18 07/20/18 06:59 18:59 Intake Total 650 Balance 650 - Medications Medications: Current Medications Calcium Acetate (Phoslo) 1,334 mg PO TIDCC [facility] Last Admin: 07/20/18 07:44 Dose: Not Given Heparin Sodium (Porcine) (Heparin) 5,000 units SC Q12 [facility] Last Admin: 07/19/18 21:39 Dose: 5,000 units Hydralazine HCl (Apresoline) 50 mg PO Q8 [facility] Last Admin: 07/20/18 06:16 Dose: Not Given Hydromorphone HCl (Dilaudid) 0.5 mg IVP Q5M PRN PRN Reason: Pain, moderate (4-7) Stop: 07/20/18 13:27 Levetiracetam (Keppra) 500 mg PO Q12 [facility] Last Admin: 07/20/18 09:11 Dose: Not Given Levothyroxine Sodium (Synthroid) 125 mcg PO DAILY@0630 [facility] Last Admin: 07/20/18 06:17 Dose: Not Given Ondansetron HCl (Zofran Inj) 4 mg IVP ONCE PRN PRN Reason: Nausea/Vomiting Stop: 07/20/18 13:27 Vitamin B Complex/Vit C/Folic Acid (Nephro-Yenny) 1 tab PO 0800 [facility] Last Admin: 07/20/18 07:44 Dose: Not Given - Labs Labs: 07/20/18 07:50 07/20/18 07:50 PT 12.4 SECONDS (9.7-12.2) H 07/17/18 20:01 INR 1.1 07/17/18 20:01 APTT 25 SECONDS (21-34) 07/17/18 20:01 - Constitutional Appears: Non-toxic, No Acute Distress - Head Exam Head Exam: ATRAUMATIC, NORMOCEPHALIC - Respiratory Exam Respiratory Exam: Decreased Breath Sounds, Rales. absent: Accessory Muscle Use, Wheezes, Respiratory Distress, Stridor - Cardiovascular Exam Cardiovascular Exam: +S1, +S2 - GI/Abdominal Exam GI & Abdominal Exam: Soft. absent: Guarding, Tenderness, Rebound - Extremities Exam Extremities Exam: Normal Capillary Refill. absent: Pedal Edema Additional comments: Dry, Onychomycosis - Neurological Exam Neurological Exam: Awake (Lethargic), Oriented x3 - Psychiatric Exam Psychiatric exam: Normal Affect, Normal Mood - Skin Skin Exam: Dry, Intact, Normal Color, Warm Assessment and Plan - Assessment and Plan (Free Text) Assessment: 72 year old male with PMHx of ESRD on HD(TThS), Seizure Disorder, Hypothyroid ism, and Hypertension admitted for HD Access. Plan: ESRD on HD TTS, requiring access POD Day # 0 s/p revision of left AVF, shiley removal, and permacath plaement -Left arm precautions -Continue nephrovite 1 tab PO daily, Phoslo [facility]ID[facility] -Vascular on consult, Dr Santos, help appreciated -Nephrology on consult, help appreciated -Percocet or Tyelnol PRN for pain control. Hyperkalemia (Resolved) -Potassium 7.7 on admission -Monitor electrolytes Hypothyroidism Elevated TSH likely 2/2 to ESRD -TSH 21.90 on admission, Repeat TSH 22.1 T3-WNL, F/U T4 -Will Consider Endo consult -Mgmt: Cont. Home meds. Synthroid 125mcg PO daily Seizure disorder -Keppra 500mg PO Q12H Hypertension -Hydralazine 50mg Q8H GI/DVT ppx: -No GI ppx indicated at this time -Heparin 5000 Q12H Plan discussed with Dr Steph Choi, DO PGY-2
--- NOTE | 2018-07-20 11:51 | CP.PCM.PN ---
Subjective - Date & Time of Evaluation Date of Evaluation: 07/20/18 Time of Evaluation: 11:50 - Subjective Subjective: pt is seen and examined, follow up consult is dicated #[id number] for hd today s/p new rt fv perma cath and revision of avf Objective - Vital Signs/Intake and Output Vital Signs (last 24 hours): Temp Pulse Resp BP Pulse Ox 97.0 F L 109 H 16 142/71 99 07/20/18 11:27 07/20/18 11:27 07/20/18 11:27 07/20/18 11:27 07/20/18 11:27 Intake and Output: 07/20/18 07/20/18 06:59 18:59 Intake Total 650 Balance 650 - Medications Medications: Current Medications Calcium Acetate (Phoslo) 1,334 mg PO TIDCC [facility] Last Admin: 07/20/18 07:44 Dose: Not Given Heparin Sodium (Porcine) (Heparin) 5,000 units SC Q12 [facility] Last Admin: 07/19/18 21:39 Dose: 5,000 units Hydralazine HCl (Apresoline) 50 mg PO Q8 [facility] Last Admin: 07/20/18 06:16 Dose: Not Given Hydromorphone HCl (Dilaudid) 0.5 mg IVP Q5M PRN PRN Reason: Pain, moderate (4-7) Stop: 07/20/18 13:27 Levetiracetam (Keppra) 500 mg PO Q12 [facility] Last Admin: 07/20/18 09:11 Dose: Not Given Levothyroxine Sodium (Synthroid) 125 mcg PO DAILY@0630 [facility] Last Admin: 07/20/18 06:17 Dose: Not Given Ondansetron HCl (Zofran Inj) 4 mg IVP ONCE PRN PRN Reason: Nausea/Vomiting Stop: 07/20/18 13:27 Oxycodone/Acetaminophen (Percocet 5/325 Mg Tab) 1 tab PO Q4H PRN PRN Reason: Pain, moderate (4-7) Stop: 07/23/18 11:38 Vitamin B Complex/Vit C/Folic Acid (Nephro-Yenny) 1 tab PO 0800 [facility] Last Admin: 07/20/18 07:44 Dose: Not Given - Labs Labs: 07/20/18 07:50 07/20/18 07:50 PT 12.4 SECONDS (9.7-12.2) H 07/17/18 20:01 INR 1.1 07/17/18 20:01 APTT 25 SECONDS (21-34) 07/17/18 20:01
--- NOTE | 2018-07-20 14:42 | RAD ---
Date of service: 07/20/2018 PROCEDURE: Intraoperative Fluoroscopy. HISTORY: RENAL FAILURE FINDINGS: Fluoroscopic assistance was provided. Fluoroscopy time = 27.8 sec. Radiation dose = 4.65 mGy . Please refer to the operative report from NIGHAT Agrawal.
--- NOTE | 2018-07-20 19:52 | CP.PCM.PN ---
Subjective - Date & Time of Evaluation Date of Evaluation: 07/20/18 Time of Evaluation: 09:45 - Subjective Subjective: clinically same Objective - Vital Signs/Intake and Output Vital Signs (last 24 hours): Temp Pulse Resp BP Pulse Ox 97.3 F L 93 H 17 100/61 98 07/20/18 17:15 07/20/18 17:15 07/20/18 17:15 07/20/18 17:15 07/20/18 17:15 Intake and Output: 07/20/18 07/21/18 18:59 06:59 Intake Total 700 Balance 700 - Medications Medications: Current Medications Acetaminophen (Tylenol 325mg Tab) 650 mg PO Q6 PRN PRN Reason: Pain or Fever Last Admin: 07/20/18 15:06 Dose: 650 mg Calcium Acetate (Phoslo) 1,334 mg PO TIDCC [facility] Last Admin: 07/20/18 17:23 Dose: Not Given Heparin Sodium (Porcine) (Heparin) 5,000 units SC Q12 [facility] Last Admin: 07/19/18 21:39 Dose: 5,000 units Hydralazine HCl (Apresoline) 50 mg PO Q8 [facility] Last Admin: 07/20/18 13:36 Dose: Not Given Levetiracetam (Keppra) 500 mg PO Q12 [facility] Last Admin: 07/20/18 09:11 Dose: Not Given Levothyroxine Sodium (Synthroid) 125 mcg PO DAILY@0630 [facility] Last Admin: 07/20/18 06:17 Dose: Not Given Oxycodone/Acetaminophen (Percocet 5/325 Mg Tab) 1 tab PO Q4H PRN PRN Reason: Pain, moderate (4-7) Stop: 07/23/18 11:38 Vitamin B Complex/Vit C/Folic Acid (Nephro-Yenny) 1 tab PO 0800 [facility] Last Admin: 07/20/18 07:44 Dose: Not Given - Labs Labs: 07/20/18 07:50 07/20/18 07:50 PT 12.4 SECONDS (9.7-12.2) H 07/17/18 20:01 INR 1.1 07/17/18 20:01 APTT 25 SECONDS (21-34) 07/17/18 20:01 - Constitutional Appears: Well - Head Exam Head Exam: ATRAUMATIC, NORMAL INSPECTION, NORMOCEPHALIC - Eye Exam Eye Exam: EOMI, Normal appearance, PERRL Pupil Exam: NORMAL ACCOMODATION, PERRL - ENT Exam ENT Exam: Mucous Membranes Moist, Normal Exam - Neck Exam Neck Exam: Full ROM, Normal Inspection. absent: Lymphadenopathy - Respiratory Exam Respiratory Exam: Decreased Breath Sounds - Cardiovascular Exam Cardiovascular Exam: REGULAR RHYTHM, +S1, +S2 - GI/Abdominal Exam GI & Abdominal Exam: Soft, Diminished Bowel Sounds - Rectal Exam Rectal Exam: Deferred
--- NOTE | 2018-07-20 22:23 | OP ---
PROCEDURE DATE: 07/20/2018 PREOPERATIVE DIAGNOSES: 1. Immature fistula, left arm. 2. Central vein stenosis. 3. Lack of venous access. PROCEDURES CARRIED OUT: 1. Placement of PermCath, right femoral vein with C-arm fluoroscopy. 2. Revision of arteriovenous fistula, left arm with creation of basilic vein transposition. SURGEON: Nba Hartman Jr., MD GLAZE WIPER: Dr. Nolan ANESTHESIOLOGIST: INDICATION: The patient is a 72-year-old man with renal insufficiency, multiple access failures in the past. OPERATIVE FINDINGS: Existing fistula was in the left arm. It measured approximately 6 to 7 mm throughout its course. However, it was very difficult to dissect out due to the previous scarring, the previous amount of edema and swelling of the arm prior to crushing the central venous stenosis. Because there was the actual dissection, the vessel itself was quite difficult compared to the usual dissection. DESCRIPTION OF PROCEDURE: Initially, we began the procedure by categorizing the previously placed right femoral catheter. We placed a wire through this and placed a long femoral catheter originating in the right common femoral vein and extending to the inferior vena cava. This had excellent return with flushing. After this was done and secured to the skin, we then re-prepped and draped to carry out the arm procedure with the usual antibiotics being given etc. After this had all been done, we then terminated the procedure, and the patient tolerated the procedure well. BLOOD LOSS TO THE PROCEDURE: 150 mL. OPERATIONS CARRIED OUT: 1. Placement of PermCath, right femoral vein. 2. Revision of arteriovenous fistula, left arm with creation of basilic vein transposition fistula. Nba Hartman Jr., MD
--- NOTE | 2018-07-21 02:30 | PN ---
DATE: 07/20/2018 LOCATION: The patient is located in room 657, bed A. REQUESTED BY: Dr. Shahida Catherine. REASON FOR FOLLOWUP: End-stage renal disease, continuation of hemodialysis. SUBJECTIVE: Mr. Yeung is a 72-year-old elderly male with a history of longstanding hypertension, diabetes, end-stage renal disease, seizure disorder, hypothyroidism, noncompliance with diet and medication, was admitted with chief complaints of pulling out his left femoral vein Perm-A-Cath accidentally with slight bleeding after the catheter was pulled out. The patient was found to be hyperkalemic, requiring emergency hemodialysis and temporary catheter placement by Surgery. The patient is not in acute distress. The patient underwent Perm-A-Cath placement on the right femoral region and also revision of the left upper extremity AV fistula. The patient is not in acute distress. The patient was seen and examined in recovery unit and no complaints. PHYSICAL EXAMINATION: VITAL SIGNS: Blood pressure 127/64, pulse 100, respirations about 10, temperature 97.2, saturation 98%. Height 5 feet 8 inches and weight is 159 pounds. GENERAL: Mr. Yeung is a 72-year-old elderly male with history of hypertension, diabetes, end-stage renal disease, moderately built, moderately nourished, not in distress. HEENT: Pupils normal and reactive to light and accommodation. Conjunctivae pink. Sclerae anicteric. Tongue is moist. Trachea is midline. LUNGS: Symmetric on both sides. Bilateral breath sounds present. Clear to auscultation. CVS: [place] at the fifth intercostal space, midclavicular line. S1 and S2 audible. No murmur or gallop. ABDOMEN: Normal in appearance, soft, tympanitic. No guarding. No rigidity. No hepatosplenomegaly. 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 EXTREMITIES: No cyanosis, no clubbing, no edema. The patient has a dressing to the left upper extremity with good bruit. LABORATORY DATA: Include as follows: As of 07/20/2018, WBC 5.2, hemoglobin 11.6, hematocrit 35.2, and platelets 168. Sodium 136, potassium 5.4, chloride 97, CO2 of 24, BUN 74, creatinine 11.2, calcium 7.8, phosphorus 6.3 and glucose 93. Total bili 0.5. AST 26, ALT 14, alkaline phosphatase 158, total protein 7.6, albumin is 4.3. Free thyroxine is 1.19, free T3 is 2.97, and TSH 22.1. ASSESSMENT AND PLAN: In summary, Mr. Yeung is a 72-year-old elderly male with a history of hypertension, diabetes, hypothyroidism, end-stage renal disease, status post right nephrectomy, was admitted after pulling out his Perm-A-Cath accidentally in sleep and severe hyperkalemia. 1. End-stage renal disease. Continue hemodialysis three times a week. The patient was scheduled for hemodialysis today after Perm-A-Cath placement and to keep his outpatient schedule Tuesday, , Tuesday. 2. Hypertension. 3. Hyperkalemia. 4. Hypocalcemia, hyperphosphatemia secondary to secondary hyperparathyroidism. Continue calcium acetate two tablets p.o. t.i.d. and also we will add Zemplar 2 mcg three times a week with next hemodialysis, and also continue low-sodium, low potassium diet and continue his antihypertensive medication, hydralazine, and also continue his antiseizure medication, Keppra 500 mg every 12 hours, Nephro-Yenny one tablet daily, and oxycodone one tablet every four hours p.r.n. and also continue Synthroid 125 mcg daily. For hemodialysis this afternoon. Thank you for allowing me to participate in your patient's care. Larry Falk MD
[2018-07-21 05:00] VITALS: TEMP 98.1
[2018-07-21] MEDS: Levothyroxine 125 MCG TAB PO SCH (06:05)
[2018-07-21] MEDS: Multivitamin Vitamin B Complex (Nephro-Vite) Tab PO SCH (07:47)
[2018-07-21 08:09] VITALS: BP 138/87; PULSE 104; RESP 20; O2SAT 94
--- NOTE | 2018-07-21 10:35 | CP.PCM.PN ---
Subjective - Date & Time of Evaluation Date of Evaluation: 07/21/18 Time of Evaluation: 10:30 - Subjective Subjective: Surgery - Dr. Hartman Pt S&E. JESSIKAO. Pt doing well, post-op. He denies any pain in the hand or arm at this time. Dressing in place is C/D/I. Palpable pulses distally. Permacath in place C/D/I. No fevers/chills/sob/chest pain. Objective - Vital Signs/Intake and Output Vital Signs (last 24 hours): Temp Pulse Resp BP Pulse Ox 98.1 F 104 H 20 138/87 94 L 07/21/18 04:59 07/21/18 07:00 07/21/18 07:00 07/21/18 07:00 07/21/18 07:00 - Medications Medications: Current Medications Acetaminophen (Tylenol 325mg Tab) 650 mg PO Q6 PRN PRN Reason: Pain or Fever Last Admin: 07/20/18 15:06 Dose: 650 mg Calcium Acetate (Phoslo) 1,334 mg PO TIDCC [facility] Last Admin: 07/21/18 07:46 Dose: 1,334 mg Heparin Sodium (Porcine) (Heparin) 5,000 units SC Q12 [facility] Last Admin: 07/19/18 21:39 Dose: 5,000 units Hydralazine HCl (Apresoline) 50 mg PO Q8 [facility] Last Admin: 07/21/18 06:05 Dose: 50 mg Levetiracetam (Keppra) 500 mg PO Q12 [facility] Last Admin: 07/21/18 09:41 Dose: 500 mg Levothyroxine Sodium (Synthroid) 125 mcg PO DAILY@0630 [facility] Last Admin: 07/21/18 06:05 Dose: 125 mcg Oxycodone/Acetaminophen (Percocet 5/325 Mg Tab) 1 tab PO Q4H PRN PRN Reason: Pain, moderate (4-7) Stop: 07/23/18 11:38 Last Admin: 07/21/18 03:12 Dose: 1 tab Vitamin B Complex/Vit C/Folic Acid (Nephro-Yenny) 1 tab PO 0800 [facility] Last Admin: 07/21/18 07:47 Dose: 1 tab - Labs Labs: 07/20/18 07:50 07/20/18 07:50 PT 12.4 SECONDS (9.7-12.2) H 07/17/18 20:01 INR 1.1 07/17/18 20:01 APTT 25 SECONDS (21-34) 07/17/18 20:01 - Constitutional Appears: No Acute Distress - Head Exam Head Exam: ATRAUMATIC, NORMAL INSPECTION, NORMOCEPHALIC - Respiratory Exam Respiratory Exam: NORMAL BREATHING PATTERN. absent: Respiratory Distress - Cardiovascular Exam Cardiovascular Exam: REGULAR RHYTHM - GI/Abdominal Exam GI & Abdominal Exam: Soft Additional comments: groin permacath, c/d/i - Extremities Exam Additional comments: LUE with avf, c/d/i, no bleeding, pulses palpable - Neurological Exam Neurological Exam: Alert, Oriented x3 - Psychiatric Exam Psychiatric exam: Normal Affect, Normal Mood Assessment and Plan - Assessment and Plan (Free Text) Assessment: 72 M w/ ESRD on dialysis, S/p L arm AVF revision and R groin permacath -Cont dialysis via permacath while AVF heals -Medical management -Dressing may be removed in [address] Minnie Escalante PGY4
--- NOTE | 2018-07-21 10:38 | CP.PCM.PN ---
Subjective - Date & Time of Evaluation Date of Evaluation: 07/21/18 Time of Evaluation: 12:02 - Subjective Subjective: Patient seen and examined at bedside. No overnight events reported. patient denies any fevers, chills, chest pain, SOB, abdominal pain, n/v/ changes in bowel habits or urinary symptoms. Objective - Vital Signs/Intake and Output Vital Signs (last 24 hours): Temp Pulse Resp BP Pulse Ox 98.1 F 104 H 20 138/87 94 L 07/21/18 04:59 07/21/18 07:00 07/21/18 07:00 07/21/18 07:00 07/21/18 07:00 - Medications Medications: Current Medications Acetaminophen (Tylenol 325mg Tab) 650 mg PO Q6 PRN PRN Reason: Pain or Fever Last Admin: 07/20/18 15:06 Dose: 650 mg Calcium Acetate (Phoslo) 1,334 mg PO TIDCC [facility] Last Admin: 07/21/18 07:46 Dose: 1,334 mg Heparin Sodium (Porcine) (Heparin) 5,000 units SC Q12 [facility] Last Admin: 07/19/18 21:39 Dose: 5,000 units Hydralazine HCl (Apresoline) 50 mg PO Q8 [facility] Last Admin: 07/21/18 06:05 Dose: 50 mg Levetiracetam (Keppra) 500 mg PO Q12 [facility] Last Admin: 07/21/18 09:41 Dose: 500 mg Levothyroxine Sodium (Synthroid) 125 mcg PO DAILY@0630 [facility] Last Admin: 07/21/18 06:05 Dose: 125 mcg Oxycodone/Acetaminophen (Percocet 5/325 Mg Tab) 1 tab PO Q4H PRN PRN Reason: Pain, moderate (4-7) Stop: 07/23/18 11:38 Last Admin: 07/21/18 03:12 Dose: 1 tab Vitamin B Complex/Vit C/Folic Acid (Nephro-Yenny) 1 tab PO 0800 [facility] Last Admin: 07/21/18 07:47 Dose: 1 tab - Labs Labs: 07/20/18 07:50 07/20/18 07:50 PT 12.4 SECONDS (9.7-12.2) H 07/17/18 20:01 INR 1.1 07/17/18 20:01 APTT 25 SECONDS (21-34) 07/17/18 20:01 - Constitutional Appears: Well, Non-toxic, No Acute Distress - Head Exam Head Exam: ATRAUMATIC, NORMAL INSPECTION, NORMOCEPHALIC - Eye Exam Eye Exam: EOMI - Respiratory Exam Respiratory Exam: Clear to Ausculation Bilateral, NORMAL BREATHING PATTERN. absent: Accessory Muscle Use, Rales - Cardiovascular Exam Cardiovascular Exam: RRR, +S1, +S2 - GI/Abdominal Exam GI & Abdominal Exam: Soft. absent: Tenderness - Exam Exam: NORMAL INSPECTION. absent: Scrotal Swelling - Extremities Exam Extremities Exam: Normal Capillary Refill. absent: Pedal Edema Additional comments: groin permacath, c/d/i LUE with avf, c/d/i, no bleeding, pulses palpable - Neurological Exam Neurological Exam: Alert, Awake, Oriented x3 - Psychiatric Exam Psychiatric exam: Normal Affect, Normal Mood - Skin Skin Exam: Dry, Intact, Normal Color, Warm Assessment and Plan - Assessment and Plan (Free Text) Assessment: 72 year old male with PMHx of ESRD on HD(TThS), Seizure Disorder, Hypothyroidism, and Hypertension admitted for HD Access. Plan: ESRD on HD TTS, requiring access POD Day # 1 s/p revision of left AVF, shiley removal, and permacath plaement -Left arm precautions -Continue nephrovite 1 tab PO daily, Phoslo TIDCC -Vascular on consult, Dr Hartman, help appreciated -Nephrology on consult, help appreciated -Percocet or Tyelnol PRN for pain control. Hyperkalemia (Resolved) -Potassium 7.7 on admission -Monitor electrolytes Hypothyroidism Elevated TSH likely 2/2 to ESRD -TSH 21.90 on admission, Repeat TSH 22.1 T3-WNL, T4-WNL -Mgmt: Cont. Home meds. Synthroid 125mcg PO daily Seizure disorder -Keppra 500mg PO Q12H Hypertension -Hydralazine 50mg Q8H GI/DVT ppx: -No GI ppx indicated at this time -Heparin 5000 Q12H Plan discussed with Dr Steph Choi, DO PGY-2 Dispo: Patient to be discharged today Discharge Instructions for patient: Please follow up with your primary physician within 7 days Please follow up with Dr. Hartman in 2 weeks You may take of your dressing in 5 days. Por favor luci un seguimiento con madera mdico primario dentro de los 7 donato. Por favor luci un seguimiento con el Dr. Hartman en 2 semanas Puede quitarse el vendaje en 5 donato.
[2018-07-21 11:17] LABS: BASO % 0.7 % (0.0-2.0); EOS # 0.5 K/uL (0.0-0.7); EOS % 9.7 % (0.0-4.0); HEMOGLOBIN 10.8 g/dL (12.0-18.0); LYMPH # 0.5 K/uL (1.0-4.3); LYMPH % 9.3 % (20.0-40.0); MEAN CORPUSCULAR HEMOGLOBIN 29.5 pg (27.0-31.0); MEAN CORPUSCULAR HGB CONC 33.6 g/dL (33.0-37.0); MEAN PLATELET VOLUME 7.2 fL (7.2-11.7); MONO # 0.8 K/uL (0.0-0.8); MONO % 16.4 % (0.0-10.0); NEUT # 3.3 K/uL (1.8-7.0); NEUT % 63.9 % (50.0-75.0); PLATELET COUNT 150 K/uL (130-400); RBC 3.66 Mil/uL (4.40-5.90); RED CELL DISTRIBUTION WIDTH 18.1 % (11.5-14.5); WHITE BLOOD COUNT 5.2 K/uL (4.8-10.8)
[2018-07-21 11:57] LABS: ALB/GLOB RATIO 1.3 (1.0-2.1); ALBUMIN 4.1 g/dL (3.5-5.0); ALT/SGPT < 6 U/L (21-72); AST/SGOT 31 U/L (17-59); BLOOD UREA NITROGEN 50 mg/dL (9-20); CALCIUM 7.8 mg/dl (8.6-10.4); GFR NON-AFRICAN AMERICAN 6
[2018-07-21 12:14] LABS: ANISOCYTOSIS SLIGHT; EOSINOPHIL 11 % (0-4); LYMPHOCYTE 8 % (20-40); MONOCYTE 10 % (0-10); NEUTROPHIL 70 % (50-75); OVALOCYTES SLIGHT; PLATELET ESTIMATE NORMAL (NORMAL); REACTIVE LYMPHOCYTES 1 % (0-0); TOTAL CELLS COUNTED 100
== END 2018-07-21 16:47 | disposition home or self-care (01) | DRG 981 ==
LOC: C.ER 17:54 → C.9E 20:01 → C.3T 21:52 → C.9E 22:19 → C.6T 23:23 → C.9E 23:23 → C.9I 07-18 00:54 → C.6T 07-19 22:48
PROVIDERS: ADMIT Internal Medicine Nephrology; ATTEND Internal Medicine Nephrology
PROC: 5A1D70Z Performance of Urinary Filtration, Intermittent, Less than 6 Hours Per Day (ICD-10-PCS; 2018-07-19)
PROC: 05WY37Z Revision of Autologous Tissue Substitute in Upper Vein, Percutaneous Approach (ICD-10-PCS; 2018-07-20)
PROC: 06H033Z Insertion of Infusion Device into Inferior Vena Cava, Percutaneous Approach (ICD-10-PCS; principal; 2018-07-20 07:45)
PROC: 05SC3ZZ Reposition Left Basilic Vein, Percutaneous Approach (ICD-10-PCS; 2018-07-20 07:45)
DX: E87.5 Hyperkalemia (principal); N18.6 End stage renal disease; T82.42XA Displacement of vascular dialysis catheter, initial encounter; I12.0 Hypertensive chronic kidney disease with stage 5 chronic kidney disease or end stage renal disease; I87.1 Compression of vein; N25.81 Secondary hyperparathyroidism of renal origin; E87.2 Acidosis; Y82.8 Other medical devices associated with adverse incidents; E03.9 Hypothyroidism, unspecified; Z99.2 Dependence on renal dialysis; E83.51 Hypocalcemia; G40.909 Epilepsy, unspecified, not intractable, without status epilepticus; Z91.11 Patient's noncompliance with dietary regimen

== ENCOUNTER 2018-08-01 01:52 | Emergency (ER) | payer MEDICARE ==
[2018-08-01 01:53] VITALS: BMI 26.6
[2018-08-01 02:00] VITALS: RESP 20; O2SAT 97
[2018-08-01] MEDS ORDERED: Hydrocodone/Acetaminophen 5 mg /300 mg Tab PO STA (02:25)
[2018-08-01] MEDS ORDERED: Hydrocodone/Acetaminophen 5 mg /300 mg Tab PO ONE (02:38)
--- NOTE | 2018-08-01 04:17 | C.PDOC ---
History Of Present Illness 72 year old male fell asleep at home and accidentally rolled off the bed while sleeping. Patient bumped the back of his head and banged his left elbow, currently he is complaining of pain to the left elbow. He notes he has chronic edema of the left arm, states he gets dialysis through that arm. Patient states he recently had procedure done at this facility to revise graft. He is due for dialysis this morning. Denies back or leg pain. Time Seen by Provider: 08/01/18 01:54 Chief Complaint (Nursing): Medical Clearance History Per: Patient History/Exam Limitations: no limitations Onset/Duration Of Symptoms: Hrs Current Symptoms Are (Timing): Still Present Recent travel outside of the [place]: No Past Medical History Reviewed: Historical Data, Nursing Documentation, Vital Signs Vital Signs: Last Vital Signs Temp 98.9 F 08/01/18 01:58 Pulse 99 H 08/01/18 01:58 Resp 20 08/01/18 01:58 BP 210/111 H 08/01/18 01:58 Pulse Ox 97 08/01/18 01:58 - Medical History PMH: HTN, Hypothyroidism, End Stage Renal Disease, Chronic Kidney Disease, Seizures - [facility] Procedures (07/17/18) DILATION OF INNOM ART WITH INTRALUM DEV, PERC APPROACH (06/16/18) DILATION OF LEFT INNOMINATE VEIN, PERCUTANEOUS APPROACH (04/07/18) DILATION OF LEFT SUBCLAVIAN VEIN, PERCUTANEOUS APPROACH (04/07/18) FLUOROSCOPY OF DIALYSIS SHUNT/FISTULA USING L OSM CONTRAST (04/07/18) INSERTION OF INFUSION DEV INTO INF VENA CAVA, PERC APPROACH (07/17/18) INSERTION OF INFUSION DEVICE INTO LOWER VEIN, PERC APPROACH (04/07/18) REMOVAL OF INFUSION DEVICE FROM UPPER VEIN, PERC APPROACH (04/07/18) REPOSITION LEFT BASILIC VEIN, PERCUTANEOUS APPROACH (07/17/18) REVISION OF AUTOL SUB IN UP VEIN, PERC APPROACH (07/17/18) Family History: States: Unknown Family Hx - Social History Hx Alcohol Use: No Hx Substance Use: No - Immunization History Hx Tetanus Toxoid Vaccination: No Hx Influenza Vaccination: No Hx Pneumococcal Vaccination: No Review Of Systems Constitutional: Negative for: Fever, Chills Eyes: Negative for: Pain, Redness ENT: Negative for: Mouth Swelling Cardiovascular: Negative for: Chest Pain, Palpitations Respiratory: Negative for: Cough, Shortness of Breath Gastrointestinal: Negative for: Nausea, Vomiting, Diarrhea Genitourinary: Negative for: Dysuria, Hematuria Musculoskeletal: Positive for: Other (Elbow pain). Negative for: Back Pain Skin: Negative for: Rash Neurological: Negative for: Weakness, Numbness, Dizziness Physical Exam - Physical Exam Appears: Well, Non-toxic, No Acute Distress Skin: Normal Color, Warm Head: Normacephalic, Other (Hematoma contusion to occipital scalp) Eye(s): bilateral: Normal Inspection, PERRL, EOMI Oral Mucosa: Moist Neck: Normal ROM, No Midline Cervical Tenderness, No Paracervical Tenderness, Supple Chest: Symmetrical, No Tenderness Back: No Vertebral Tenderness, No Paraspinal Tenderness Extremity: Normal ROM (x4), Other (Chronic swelling of left arm noted. Left arm wound closed, no drainage or bleeding.) Pulses: Left Radial: Normal, Right Radial: Normal Neurological/Psych: Oriented x3, Normal Speech, Normal Cranial Nerves (Grossly intact), Normal Motor, Normal Sensation Gait: Steady ED Course And Treatment O2 Sat by Pulse Oximetry: 97 (Room air) Pulse Ox Interpretation: Normal - Other Rad Left elbow x-ray X-Ray: Interpreted by Me, Viewed By Me Interpretation: No acute fracture or dislocation - CT Scan/US CT Head Other Rad Studies (CT/US): Read By Radiologist, Radiology Report Reviewed CT/US Interpretation: CT scan of the head without contrast. CLINICAL HISTORY: Headache. TECHNIQUE: Multiple axial CT images were obtained through the brain without IV contrast material. COMMENTS: Right parietal subgaleal soft tissue hematoma. There is normal configuration of sella turcica. There are no intra or extra-axial collections. There is no mass effect or midline shift. There is no evidence of hematoma formation. No hydrocephalus is present. The ventricles are symmetrical. No abnormal calcifications are present. There is diffuse age- appropriate cerebellar and cerebral atrophy with proportionally dilated ventricles and cortical sulci. There are bilateral periventricular and subcortical white matter hypolucencies compatible with mild chronic microvascular disease. Otherwise, no significant focal abnormalities are seen either in the posterior fossa or supratentorial compartment. IMPRESSION: 1. A ge-appropriate cerebellar and cerebral atrophy. 2. Mild chronic microvascular disease. 3. No evidence of acute intracranial pathology. Medical Decision Making Medical Decision Making: ct and x-rays were negative, patient stable for dc. Disposition Counseled Patient/Family Regarding: Diagnosis, Need For Followup - Disposition Disposition: HOME/ ROUTINE Disposition Time: 04:13 Condition: STABLE Additional Instructions: Continue to take tylenol 600mg by mouth 3-4 times a day for pain. Instructions: Contusion (DC), Minor Head Injury (DC) Forms: Gen Discharge Inst Lebanese, [employer] (Lebanese) Print Language: ALGERIAN - Clinical Impression Clinical Impression: Elbow contusion, Head injury, acute, Traumatic hematoma of scalp - PA / CHIEF NURSE EXECUTIVE / Resident Statement MD/DO has reviewed & agrees with the documentation as recorded. - Scribe Statement The provider has reviewed the documentation as recorded by the Scribbeatriz Mas All medical record entries made by the Zoilaibbeatriz were at my direction and personally dictated by me. I have reviewed the chart and agree that the record accurately reflects my personal performance of the history, physical exam, medical decision making, and the department course for this patient. I have also personally directed, reviewed, and agree with the discharge instructions and disposition.
[2018-08-01 04:25] VITALS: BP 179/98; PULSE 86; TEMP 97.9
--- NOTE | 2018-08-01 08:51 | RAD ---
Date of service: 08/01/2018 PROCEDURE: Radiographs of the left elbow. HISTORY: pain after fall COMPARISON: No prior. TECHNIQUE: 3 views obtained. FINDINGS: BONES: No fracture appreciated. Tiny anterior ulnar coronoid spurring suggested. JOINTS: Arthrosis present. SOFT TISSUES: Gross Connie abnormal soft tissue swelling increased generalized density increased subcutaneous reticulated edema. No gas-forming cellulitis noted. However a cellulitis and/or lymphedema is present. Ulnar-sided skin sutures humeral level along with ulnar sided deeper surgical sutures clips noted. Trace increased densities very superficial thread-like over proximal forearm on lateral view correlate clinically with visual inspection. JOINT EFFUSION: Probable trace joint effusion OTHER FINDINGS: Medial humeral epicondylar bony exostosis-calcific tendinopathy with or without old trauma here compatible with this appearance of IMPRESSION: No fracture or dislocation. Tissue changes as above. Correlate clinically
--- NOTE | 2018-08-01 09:07 | CT ---
Date of service: 08/01/2018 PROCEDURE: CT HEAD WITHOUT CONTRAST. HISTORY: trauma COMPARISON: None available. TECHNIQUE: Axial computed tomography images were obtained through the head/brain without intravenous contrast. Radiation dose: Total exam DLP = 959.85 mGy-cm. This CT exam was performed using one or more of the following dose reduction techniques: Automated exposure control, adjustment of the mA and/or kV according to patient size, and/or use of iterative reconstruction technique. FINDINGS: HEMORRHAGE: No intracranial hemorrhage. BRAIN: No mass effect or edema. Scattered focal lucencies in the subcortical and periventricular white matter suggestive for chronic microvascular ischemic change. Diffuse generalized parenchymal atrophy. Cavum septum pellucidum. VENTRICLES: Unremarkable. No hydrocephalus. CALVARIUM: Unremarkable. PARANASAL SINUSES: Unremarkable as visualized. No significant inflammatory changes. MASTOID AIR CELLS: Unremarkable as visualized. No inflammatory changes. OTHER FINDINGS: Intracranial arterial calcifications. Soft tissue swelling overlying the posterior right occipital cranium. IMPRESSION: Soft tissue swelling overlying the posterior right occipital cranium. Additional soft tissue swelling overlying the frontal bone. Chronic microvascular ischemic change. Diffuse generalized parenchymal atrophy. If symptoms persists, consider correlation with MRI. A preliminary report was generated at 3:56 a.m. on 08/01/[address] Bell Cao from [facility].
== END 2018-08-01 04:40 | disposition home or self-care (01) ==
LOC: C.ER 01:52
DX: S50.02XA Contusion of left elbow, initial encounter (principal); S00.03XA Contusion of scalp, initial encounter; W06.XXXA Fall from bed, initial encounter; Y92.009 Unspecified place in unspecified non-institutional (private) residence as the place of occurrence of the external cause

== ENCOUNTER 2018-09-21 16:02 | Inpatient (IN) | payer MEDICARE ==
[2018-09-21 16:03] VITALS: BMI 26.6
--- NOTE | 2018-09-21 17:01 | C.PDOC ---
History Of Present Illness 72-year-old male presents to the emergency department after being sent by Dr. Falk from dialysis. Patient has a right groin CVC which has allegedly been displaced. Patient received dialysis on Tuesdays and Saturdays. Patient also has a left forearm AV fistula which they have been using. Reportedly patients right CVC line was attempted to be accessed but was not usable. Instead the AV fistula was used with no complaints. Patient is compliant with his medications. Dr. Hartman was the surgeon who placed the right CVC line. Patient denies any chest pain, SOB, difficulty breathing, fevers, chills, or abdominal pain. Time Seen by Provider: 09/21/18 16:29 Chief Complaint (Nursing): Medical Clearance History Per: Patient History/Exam Limitations: no limitations Onset/Duration Of Symptoms: Hrs Current Symptoms Are (Timing): Still Present Past Medical History Reviewed: Historical Data, Nursing Documentation, Vital Signs Vital Signs: Last Vital Signs Temp 98.6 F 09/21/18 16:06 Pulse 84 09/21/18 16:06 Resp 17 09/21/18 16:06 BP 180/92 H 09/21/18 16:06 Pulse Ox 100 09/21/18 16:06 Primary Care Provider: Jadon Mas - Medical History PMH: HTN, Hypothyroidism, End Stage Renal Disease, Chronic Kidney Disease, Seizures Surgical History: No Surg Hx - [facility] Procedures (07/17/18) DILATION OF INNOM ART WITH INTRALUM DEV, PERC APPROACH (06/16/18) DILATION OF LEFT INNOMINATE VEIN, PERCUTANEOUS APPROACH (04/07/18) DILATION OF LEFT SUBCLAVIAN VEIN, PERCUTANEOUS APPROACH (04/07/18) FLUOROSCOPY OF DIALYSIS SHUNT/FISTULA USING L OSM CONTRAST (04/07/18) INSERTION OF INFUSION DEV INTO INF VENA CAVA, PERC APPROACH (07/17/18) INSERTION OF INFUSION DEVICE INTO LOWER VEIN, PERC APPROACH (04/07/18) REMOVAL OF INFUSION DEVICE FROM UPPER VEIN, PERC APPROACH (04/07/18) REPOSITION LEFT BASILIC VEIN, PERCUTANEOUS APPROACH (07/17/18) REVISION OF AUTOL SUB IN UP VEIN, PERC APPROACH (07/17/18) Family History: States: Unknown Family Hx - Social History Hx Alcohol Use: No Hx Substance Use: No - Immunization History Hx Tetanus Toxoid Vaccination: No Hx Influenza Vaccination: No Hx Pneumococcal Vaccination: No Review Of Systems Except As Marked, All Systems Reviewed And Found Negative. Constitutional: Negative for: Fever, Chills Cardiovascular: Negative for: Chest Pain Respiratory: Negative for: Cough, Shortness of Breath Gastrointestinal: Negative for: Nausea, Vomiting, Abdominal Pain, Diarrhea Neurological: Negative for: Weakness, Numbness Physical Exam - Physical Exam Appears: Non-toxic, No Acute Distress Skin: Normal Color, Warm, Dry Head: Atraumatic, Normacephalic Eye(s): bilateral: Normal Inspection, PERRL, EOMI Nose: Normal Neck: Normal, Supple Chest: Symmetrical, No Tenderness Cardiovascular: Rhythm Regular, No Murmur Respiratory: Normal Breath Sounds, No Rales, No Rhonchi, No Wheezing Gastrointestinal/Abdominal: Soft, No Tenderness, No Guarding, No Rebound Male Genital: Other (CVC line present to right groin, dressing in place) Extremity: Normal ROM, Other (palpable thrill to left arm) Neurological/Psych: Oriented x3, Normal Speech, Normal Cognition ED Course And Treatment - Laboratory Results Result Diagrams: 09/21/18 17:19 09/21/18 17:19 ECG: Interpreted By Me, Viewed By Me ECG Rhythm: Sinus Rhythm Interpretation Of ECG: NSR, possible left atrial enlargements, no ST elevation O2 Sat by Pulse Oximetry: 100 (RA) Pulse Ox Interpretation: Normal - Radiology CXR: Interpreted by Me, Viewed By Me CXR Interpretation: Yes: No Acute Disease - Physician Consult Information Time Consulting Physician Contacted: 17:06 Physician Contacted: Nba Hartman Jr. (Surgeon) Outcome Of Conversation: States he will be down to see the patient in the ED shortly. Medical Decision Making Medical Decision Makin:50 Dr. Falk said left AV fistula dosn't always work and is concerned bc patient needs dialysis, currently right groin catheter not in right place, left AV is slow moving and is very new. 172209/21/18 Dr Hartman, Surgeon, here to evaluate patient. [id number]/21/18 Dr Hartman, Surgeon, removed right sided catheter. Requesting medical admission and will plan for a fistulogram for tomorrow to assess function of AV fistula. Plan: Chemistry EKG Bloodwork CXR 181609/21/[address] Britni Catherine, c/f Dr Mas and will admit. Disposition Counseled Patient/Family Regarding: Studies Performed, Diagnosis - Disposition Disposition: HOSPITALIZED Disposition Time: 18:20 Condition: GOOD - Clinical Impression Clinical Impression: Arteriovenous fistula, Dialysis complication - PA / DENTAL OFFICE MANAGER / Resident Statement MD/DO has reviewed & agrees with the documentation as recorded. - Scribe Statement The provider has reviewed the documentation as recorded by the Scribe (Pal Oneil)
[2018-09-21 17:25] LABS: BASO # 0.1 K/uL (0.0-0.2); BASO % 0.8 % (0.0-2.0); EOS # 0.2 K/uL (0.0-0.7); EOS % 2.7 % (0.0-4.0); HEMOGLOBIN 11.1 g/dL (12.0-18.0); LYMPH # 0.5 K/uL (1.0-4.3); LYMPH % 6.6 % (20.0-40.0); MEAN CORPUSCULAR HEMOGLOBIN 28.4 pg (27.0-31.0); MEAN CORPUSCULAR HGB CONC 33.4 g/dL (33.0-37.0); MEAN PLATELET VOLUME 7.3 fL (7.2-11.7); MONO % 14.3 % (0.0-10.0); NEUT # 5.4 K/uL (1.8-7.0); NEUT % 75.6 % (50.0-75.0); PLATELET COUNT 164 K/uL (130-400); RBC 3.89 Mil/uL (4.40-5.90); RED CELL DISTRIBUTION WIDTH 18.9 % (11.5-14.5); WHITE BLOOD COUNT 7.2 K/uL (4.8-10.8)
[2018-09-21 17:28] LABS: MEAN CELL VOLUME 85.1 fL (80.0-94.0)
[2018-09-21 17:48] LABS: ALB/GLOB RATIO 1.1 (1.0-2.1); ALBUMIN 4.6 g/dL (3.5-5.0); CALCIUM 8.1 mg/dl (8.6-10.4)
[2018-09-21 18:05] LABS: EOSINOPHIL 4 % (0-4); LYMPHOCYTE 11 % (20-40); MONOCYTE 14 % (0-10); NEUTROPHIL 71 % (50-75); TOTAL CELLS COUNTED 100
[2018-09-21 18:06] LABS: ANISOCYTOSIS SLIGHT; PLATELET ESTIMATE NORMAL (NORMAL)
--- NOTE | 2018-09-21 18:10 | CP.PCM.CON ---
History of Present Illness - History of Present Illness History of Present Illness: Vascular Surgery Consult Note Dr. Hartman 72M, with PMH of ESRD, CKD, HTN, HLD, hypothyroidism, and seizures, for evaluation of left arm AVF. Patient is well known to our surgical service. Patient obtained a left brachiobasilic AVF on 03/15/18. Patient has a history of right IJ permacath and R femoral permacath which has been removed. Currently patient receiving HD from the AVF however there is poor flow. He denies any pain, F/C, CP/SOB, abd pain, N/V/D, no other complaints. PMH: ESRD on HD, CKD, HTN, HLD, Hypothyroidism, seizures PSH: Left brachiobasilic AVF (03/15), R IJ permacath (removed), L IJ permacath (removed), R femoral permacath (removed) FH: non-contributory SH: Denies ETOH, denies illicit drugs NKDA Meds: See MAR Review of Systems - Constitutional Constitutional: absent: Chills, Fever, Weakness - EENT Eyes: absent: Blurred Vision, Change in Vision Nose/Mouth/Throat: absent: Nasal Congestion, Nasal Discharge - Cardiovascular Cardiovascular: absent: Chest Pain, Dyspnea - Respiratory Respiratory: absent: Cough, Dyspnea - Gastrointestinal Gastrointestinal: absent: Abdominal Pain, Nausea, Vomiting - Genitourinary Genitourinary: absent: Difficulty Urinating, Dysuria - Musculoskeletal Musculoskeletal: absent: Back Pain, Neck Pain - Integumentary Integumentary: absent: Bleeding Lesions, Changing Lesions - Neurological Neurological: absent: Confusion, Dizziness - Psychiatric Psychiatric: absent: Anxiety, Depression Past Patient History - Infectious Disease Hx of Infectious Diseases: None - Past Medical History & Family History Past Medical History?: Yes - Past Social History Smoking Status: Never Smoked - CARDIAC Hx Hypertension: Yes - PULMONARY Hx Respiratory Disorders: No - NEUROLOGICAL Hx Seizures: Yes - RENAL Hx Chronic Kidney Disease: Yes - ENDOCRINE/METABOLIC Hx Hypothyroidism: Yes - INTEGUMENTARY Hx Dermatological Problems: No - MUSCULOSKELETAL/RHEUMATOLOGICAL Hx Falls: No - GASTROINTESTINAL Hx Gastrointestinal Disorders: No - GENITOURINARY/GYNECOLOGICAL Other/Comment: hd pt. - PSYCHIATRIC Hx Substance Use: No - SURGICAL HISTORY Hx Surgeries: Yes Hx Vascular Access Device: Yes (LEFT UPPER ARM AV FISTULA) Other/Comment: Stefano Cath, left upper anterior chest - ANESTHESIA Hx Anesthesia: Yes Hx Anesthesia Reactions: No Meds Allergies/Adverse Reactions: Allergies Allergy/AdvReac Type Severity Reaction Status Date / Time vancomycin AdvReac Severe RASH Verified 09/21/18 16:10 Physical Exam - Constitutional Appears: Well, Non-toxic, No Acute Distress - Head Exam Head Exam: ATRAUMATIC, NORMAL INSPECTION, NORMOCEPHALIC - Eye Exam Eye Exam: EOMI Pupil Exam: PERRL - ENT Exam ENT Exam: Mucous Membranes Moist - Respiratory Exam Respiratory Exam: NORMAL BREATHING PATTERN. absent: Wheezes, Respiratory Distress - Cardiovascular Exam Cardiovascular Exam: REGULAR RHYTHM - GI/Abdominal Exam GI & Abdominal Exam: Normal Bowel Sounds, Soft. absent: Tenderness - Extremities Exam Extremities exam: Positive for: normal inspection, pedal pulses present Additional comments: left AVF - palpable thrill - Neurological Exam Neurological exam: Alert, Oriented x3 - Psychiatric Exam Psychiatric exam: Normal Affect, Normal Mood - Skin Skin Exam: Dry, Intact, Normal Color, Warm Results - Vital Signs Recent Vital Signs: Last Vital Signs Temp 98.6 F 09/21/18 16:06 Pulse 84 09/21/18 16:06 Resp 17 09/21/18 16:06 BP 180/92 H 09/21/18 16:06 Pulse Ox 100 09/21/18 17:59 - Labs Result Diagrams: 09/21/18 17:19 09/21/18 17:19 Labs: Laboratory Results - last 24 hr 09/21/18 09/21/18 17:19 17:19 WBC 7.2 RBC 3.89 L Hgb 11.1 L Hct 33.1 L MCV 85.1 D MCH 28.4 MCHC 33.4 RDW 18.9 H Plt Count 164 MPV 7.3 Neut % (Auto) 75.6 H Lymph % (Auto) 6.6 L [place] % (Auto) 14.3 H Eos % (Auto) 2.7 Baso % (Auto) 0.8 Neut # (Auto) 5.4 Lymph # (Auto) 0.5 L [place] # (Auto) 1.0 H Eos # (Auto) 0.2 Baso # (Auto) 0.1 Neutrophils % (Manual) 71 Lymphocytes % (Manual) 11 L Monocytes % (Manual) 14 H Eosinophils % (Manual) 4 Platelet Estimate Normal Anisocytosis (manual) Slight Sodium 136 Potassium 5.0 Chloride 98 Carbon Dioxide 21 L Anion Gap 22 H BUN 70 H Creatinine 10.9 H* D Est GFR ( Amer) 6 Est GFR (Non-Af Amer) 5 Random Glucose 183 H D Calcium 8.1 L Total Bilirubin 0.8 AST 40 ALT 12 L D Alkaline Phosphatase 129 H Total Protein 8.9 H Albumin 4.6 Globulin 4.2 H Albumin/Globulin Ratio 1.1 Assessment & Plan - Assessment and Plan (Free Text) Assessment: 72M w/ L AVF, need for evaluation of AVF patency Plan: OR tomorrow for Fistulagram Medically optimize D/w Dr. Minnie Monte PGY1
[2018-09-21] MEDS: Aritificial Tears (15ml) OU SCH (21:56)
[2018-09-21] MEDS: Dorzolamide 2% Opht Sol 10ml OU SCH (21:57)
[2018-09-22] MEDS: Levothyroxine 125 MCG TAB PO SCH (06:19)
--- NOTE | 2018-09-22 06:37 | RAD ---
Date of service: 09/21/2018 HISTORY: PREOP, CVC PLACEMENT COMPARISON: Chest x-ray 07/19/2018 TECHNIQUE: Chest one view . FINDINGS: LUNGS: Mild right basilar atelectasis. PLEURA: No pleural effusion is identified. CARDIOVASCULAR: Heart size is within normal limits. Atherosclerotic calcifications noted of the aorta. Right axillary vascular stent noted that appears to be focally narrowed at the more lateral aspect, unchanged in appearance compared to the prior exam and when compared to chest x-ray of 02/03/2018. Additional stable vascular stent noted overlying the mediastinum. OSSEOUS STRUCTURES: Small calcifications noted adjacent to the right humeral head, likely calcific tendinopathy. VISUALIZED UPPER ABDOMEN: Unremarkable. OTHER FINDINGS: None. IMPRESSION: See above
[2018-09-22] MEDS: Multivitamin Vitamin B Complex (Nephro-Vite) Tab PO SCH (07:41)
[2018-09-22] MEDS: Aritificial Tears (15ml) OU SCH ×4 (10:01→22:01)
[2018-09-22 11:20] LABS: HEMOGLOBIN 10.6 g/dL (12.0-18.0); MEAN CELL VOLUME 83.2 fL (80.0-94.0); MEAN CORPUSCULAR HEMOGLOBIN 28.2 pg (27.0-31.0); MEAN CORPUSCULAR HGB CONC 33.9 g/dL (33.0-37.0); MEAN PLATELET VOLUME 7.5 fL (7.2-11.7); RBC 3.77 Mil/uL (4.40-5.90); RED CELL DISTRIBUTION WIDTH 18.8 % (11.5-14.5); WHITE BLOOD COUNT 6.6 K/uL (4.8-10.8)
[2018-09-22 11:29] LABS: INR 1.2; PARTIAL THROMBOPLASTIN TIME 35.6 SECONDS (21-34); PROTHROMBIN TIME 12.8 SECONDS (9.7-12.2)
[2018-09-22 11:44] LABS: CALCIUM 7.7 mg/dl (8.6-10.4)
[2018-09-22] MEDS ORDERED: Midazolam 2 MG/2 ML VIAL ONE (13:07)
[2018-09-22] MEDS ORDERED: Propofol 10 mg/ml Inj (20 ML) ONE (13:07)
[2018-09-22] MEDS ORDERED: ceFAZolin 1 gm in NS 0 GM/0 ML BAG IVPB ONE (13:21)
[2018-09-22] MEDS ORDERED: HEPARIN-NS 5,000 UNITS/500 ML 5,000 UNIT/500 ML BAG IV ONE ×2 (13:21→14:04)
[2018-09-22] MEDS ORDERED: Lidocaine Hydrochloride 10 ML INJ ONE (13:21)
[2018-09-22] MEDS ORDERED: Iohexol 240 200 ML ONE (13:21)
--- NOTE | 2018-09-22 15:01 | PCM.SURG1 ---
Surgeon's Initial Post Op Note - Surgeon's Notes Surgeon: Dr. Hartman Crate Opener: Camila GEE Type of Anesthesia: IV Sedation, Local Anesthesia Administered By: Remberto Tapia CRNA Pre-Operative Diagnosis: ESRD, Central Venous Stenosis Operative Findings: See operative report. Left Arm AVF stricture balloon angioplasty with 6mm x 80mm. Central Venous Stenosis balloon angioplasty with 9mm x 60mm. Post-Operative Diagnosis: same Operation Performed: Left AVF Fistulogram. Balloon Angioplasty of Fistula and Central Venous Stenosis. Specimen/Specimens Removed: none Estimated Blood Loss: EBL {In ML}: 50 Blood Products Given: N/A Drains Used: No Drains Post-Op Condition: Good Date of Surgery/Procedure: 09/22/18 Time of Surgery/Procedure: 15:02
[2018-09-22] MEDS ORDERED: HYDROmorphone 0.5 mg/0.5 ml ISec IVP PRN (15:02)
--- NOTE | 2018-09-22 15:28 | RAD ---
INTRAOPERATIVE FLUOROSCOPY HISTORY: Fistula evaluation. TECHNIQUE/FINDINGS: Fluoroscopic guidance was provided by Radiology department. Please see operative report for full details. Multiple images and cine loops were provided. Total fluoroscopy time was 416.5 sec. IMPRESSION: As above
[2018-09-22 16:53] VITALS: RESP 20
--- NOTE | 2018-09-22 18:33 | CP.PCM.HP ---
Past Patient History - Infectious Disease Hx of Infectious Diseases: None - Past Medical History & Family History Past Medical History?: Yes - Past Social History Smoking Status: Never Smoked - CARDIAC Hx Hypertension: Yes - PULMONARY Hx Respiratory Disorders: No - NEUROLOGICAL Hx Seizures: Yes - RENAL Hx Chronic Kidney Disease: Yes Hx Dialysis: Yes Type of Dialysis Access: left arm fistula Date of Last Dialysis Treatment: 09/21/18 Hx Renal Failure: Yes - ENDOCRINE/METABOLIC Hx Hypothyroidism: Yes - INTEGUMENTARY Hx Dermatological Problems: No - MUSCULOSKELETAL/RHEUMATOLOGICAL Hx Falls: No (Denies) - GASTROINTESTINAL Hx Gastrointestinal Disorders: No - GENITOURINARY/GYNECOLOGICAL Other/Comment: hd pt. - PSYCHIATRIC Hx Substance Use: No - SURGICAL HISTORY Hx Surgeries: Yes Hx Vascular Access Device: Yes (LEFT UPPER ARM AV FISTULA) Other/Comment: Stefano Cath, left upper anterior chest - ANESTHESIA Hx Anesthesia: Yes Hx Anesthesia Reactions: No Hx Malignant Hyperthermia: No Has any member of the family had a problem w/ anesthesia?: No Meds Allergies/Adverse Reactions: Allergies Allergy/AdvReac Type Severity Reaction Status Date / Time vancomycin AdvReac Severe RASH Verified 09/21/18 16:10 Physical Exam - Constitutional Appears: Well - Head Exam Head Exam: ATRAUMATIC, NORMAL INSPECTION, NORMOCEPHALIC - Eye Exam Eye Exam: EOMI, Normal appearance, PERRL Pupil Exam: NORMAL ACCOMODATION, PERRL - ENT Exam ENT Exam: Mucous Membranes Moist, Normal Exam - Neck Exam Neck exam: Positive for: Normal Inspection - Respiratory Exam Respiratory Exam: Decreased Breath Sounds - Cardiovascular Exam Cardiovascular Exam: REGULAR RHYTHM, +S1, +S2 - GI/Abdominal Exam GI & Abdominal Exam: Diminished Bowel Sounds, Soft - Rectal Exam Rectal Exam: Deferred - Neurological Exam Neurological exam: Oriented x3 Results - Vital Signs Recent Vital Signs: Last Vital Signs Temp 98.5 F 09/22/18 16:53 Pulse 79 09/22/18 16:53 Resp 20 09/22/18 16:53 BP 165/80 H 09/22/18 16:53 Pulse Ox 97 09/22/18 16:53 - Labs Result Diagrams: 09/22/18 11:14 09/22/18 11:14 Labs: Laboratory Results - last 24 hr 09/22/18 09/22/18 09/22/18 11:14 11:14 11:14 WBC 6.6 RBC 3.77 L Hgb 10.6 L Hct 31.4 L MCV 83.2 MCH 28.2 MCHC 33.9 RDW 18.8 H Plt Count 183 MPV 7.5 PT 12.8 H INR 1.2 APTT 35.6 H Sodium 137 Potassium 4.6 Chloride 101 Carbon Dioxide 21 L Anion Gap 20 BUN 84 H Creatinine 12.5 H* Est GFR ( Amer) 5 Est GFR (Non-Af Amer) 4 Random Glucose 99 D Calcium 7.7 L Blood Type Antibody Screen 09/22/18 11:14 WBC RBC Hgb Hct MCV MCH MCHC RDW Plt Count MPV PT INR APTT Sodium Potassium Chloride Carbon Dioxide Anion Gap BUN Creatinine Est GFR ( Amer) Est GFR (Non-Af Amer) Random Glucose Calcium Blood Type O POSITIVE Antibody Screen Negative
[2018-09-22] MEDS: Dorzolamide 2% Opht Sol 10ml OU SCH (22:04)
--- NOTE | 2018-09-23 00:32 | CARD ---
APPROVED REPORT Date of service: 09/21/2018 EKG Measurement Heart [id number] <Conclusion> Normal sinus rhythm Possible Left atrial enlargement Left axis deviation Abnormal ECG
--- NOTE | 2018-09-23 01:45 | OP ---
PROCEDURE DATE: 09/22/2018 PREOPERATIVE DIAGNOSES: Renal failure, malfunctioning fistula in left arm, immature fistula in left arm. POSTOPERATIVE DIAGNOSES: Renal failure, malfunctioning fistula in left arm, immature fistula in left arm. PROCEDURE CARRIED OUT: Fistulogram in left arm and balloon angioplasty of central vein stenosis using a 9-mm balloon and a 6-mm balloon angioplasty of the arterialized basilic vein. SURGEON: Nba Hartman Jr., MD CHEMICAL DEPENDENCY NURSE: Ti Jensen DO ANESTHESIOLOGIST: Mr. Tapia. INDICATIONS: The patient is a 72-year-old man with chronic central vein stenosis, previously stented which resulted in marked improvement in his left arm. He now, however, presents with a femoral catheter partially coming out, which was removed yesterday, and now they said that they did not have great access in his left arm. OPERATIVE FINDINGS: There was no evidence of arterial stenosis. That was widely patent. The midportion of the arterialized basilic vein was stenotic in multiple segments, down to 3 mm. We dilated this with a 6-mm balloon successfully. We then went centrally at the origin meeting the portion most distal towards the end of the previous innominate vein stent which was somewhat narrowed, perhaps only 30% to 40%. We then dilated this with a 9-mm balloon with good cosmetic results. The final pictures were excellent. We then terminated the procedure. DESCRIPTION OF PROCEDURE: The patient was given local anesthesia. Using ultrasound guidance and micropuncture technique, the left arm fistula was punctured. Under fluoroscopy, guidewire was advanced centrally. Sheath dilator was passed over this. Eventually, a 6-mm short sheath was placed. Heparin was not given systemically. We then dilated with a 6-mm balloon to a half portion of the fistula, and then we dilated the central portion. Both times, this went quite well, cosmetically acceptable, . We identified first the site, which was not adequate and we eventually placed a 7-mm [place] suture with satisfactory hemostasis. OPERATION CARRIED OUT: Fistulogram in left arm, balloon angioplasty of stenotic fistula, and balloon angioplasty of central vein stenosis. Nba Hartman Jr., MD [facility] # [id number]
[2018-09-23] MEDS: Levothyroxine 125 MCG TAB PO SCH (06:00)
[2018-09-23] MEDS: Multivitamin Vitamin B Complex (Nephro-Vite) Tab PO SCH (07:38)
--- NOTE | 2018-09-23 08:13 | CP.PCM.PN ---
Subjective - Date & Time of Evaluation Date of Evaluation: 09/23/18 Time of Evaluation: 08:10 - Subjective Subjective: Vascular Surgery Note for Dr. Hartman Patient seen and examined at bedside. No acute event overnight. Patient denies pain. He is tolerating diet. He has no complaints LUE AVF with palpable thrill and audible bruit. Patient to receive dialysis today. Objective - Vital Signs/Intake and Output Vital Signs (last 24 hours): Temp Pulse Resp BP Pulse Ox 97.6 F 80 20 139/67 99 09/23/18 07:42 09/23/18 07:42 09/23/18 07:42 09/23/18 07:42 09/23/18 07:42 Intake and Output: 09/23/18 09/23/18 06:59 18:59 Intake Total 660 Balance 660 - Medications Medications: Current Medications Acetaminophen (Tylenol 325mg Tab) 650 mg PO Q6 PRN PRN Reason: Pain, moderate (4-7) Artificial Tears (Artificial Tears) 0 ml OU QID [facility] Last Admin: 09/22/18 22:01 Dose: 1 drop Calcium Acetate (Phoslo) 1,334 mg PO TIDCC [facility] Last Admin: 09/23/18 07:38 Dose: 1,334 mg Dorzolamide HCl (Trusopt) 0 ml OU HS [facility] Last Admin: 09/22/18 22:04 Dose: Not Given Hydralazine HCl (Apresoline) 50 mg PO Q8H [facility] Last Admin: 09/23/18 06:02 Dose: 50 mg Levetiracetam (Keppra) 500 mg PO Q12 [facility] Last Admin: 09/22/18 22:01 Dose: 500 mg Levothyroxine Sodium (Synthroid) 125 mcg PO DAILY@0630 [facility] Last Admin: 09/23/18 06:00 Dose: 125 mcg Pneumococcal Polyvalent Vaccine (Pneumovax 23 Vaccine) 0.5 ml IM .ONCE ONE Stop: 09/23/18 10:01 Timolol Maleate (Timoptic 0.5% Ophth Soln) 0 drop OU HS [facility] Last Admin: 09/22/18 22:04 Dose: Not Given Vitamin B Complex/Vit C/Folic Acid (Nephro-Yenny) 1 tab PO 0800 [facility] Last Admin: 09/23/18 07:38 Dose: 1 tab - Labs Labs: 09/22/18 11:14 09/22/18 11:14 PT 12.8 SECONDS (9.7-12.2) H 09/22/18 11:14 INR 1.2 09/22/18 11:14 APTT 35.6 SECONDS (21-34) H 09/22/18 11:14 - Constitutional Appears: No Acute Distress - Head Exam Head Exam: ATRAUMATIC, NORMOCEPHALIC - Eye Exam Eye Exam: EOMI, Normal appearance Pupil Exam: PERRL - ENT Exam ENT Exam: Mucous Membranes Moist - Respiratory Exam Respiratory Exam: NORMAL BREATHING PATTERN - Cardiovascular Exam Cardiovascular Exam: REGULAR RHYTHM - GI/Abdominal Exam GI & Abdominal Exam: Soft, Normal Bowel Sounds. absent: Tenderness - Extremities Exam Extremities Exam: Normal Capillary Refill Additional comments: LUE AVF with palpable thrill and audible bruit. pulses present - Back Exam Back Exam: absent: CVA tenderness (L), CVA tenderness (R) - Neurological Exam Neurological Exam: Alert, Awake, Oriented x3 - Psychiatric Exam Psychiatric exam: Normal Affect, Normal Mood - Skin Skin Exam: Dry, Intact, Warm Assessment and Plan - Assessment and Plan (Free Text) Assessment: 72M s/p fistulogram with balloon angioplasty POD#1 Plan: -reg diet -HD today -AVF to be used today -No further surgical intervention at this time -Clear for discharge if HD successful -Further recommendations as per Dr. Minnie Bradley PGY2
[2018-09-23] MEDS: Aritificial Tears (15ml) OU SCH ×4 (09:12→22:05)
--- NOTE | 2018-09-23 09:52 | CP.PCM.CON ---
History of Present Illness - History of Present Illness History of Present Illness: pt is seen and examined, full consult is dictated #[id number] 1. esrd 2. htn 3. non functioning/ dislodged perm a cath 4. poorly functioning left av fistula 5. HTN 6. DM-2 7. hypothyroidisim 8. Seizers pt was not able to go to out pt interventional radiology s/p removal of perma cath and angioplasty of avf will use avf today, if no complications , pt can be discharged home post hd c/w all his current meds low na, low K+ diet Past Patient History - Infectious Disease Hx of Infectious Diseases: None - Past Medical History & Family History Past Medical History?: Yes - Past Social History Smoking Status: Never Smoked - CARDIAC Hx Hypertension: Yes - PULMONARY Hx Respiratory Disorders: No - NEUROLOGICAL Hx Seizures: Yes - RENAL Hx Chronic Kidney Disease: Yes Hx Dialysis: Yes Type of Dialysis Access: left arm fistula Date of Last Dialysis Treatment: 09/21/18 Hx Renal Failure: Yes - ENDOCRINE/METABOLIC Hx Hypothyroidism: Yes - INTEGUMENTARY Hx Dermatological Problems: No - MUSCULOSKELETAL/RHEUMATOLOGICAL Hx Falls: No (Denies) - GASTROINTESTINAL Hx Gastrointestinal Disorders: No - GENITOURINARY/GYNECOLOGICAL Other/Comment: hd pt. - PSYCHIATRIC Hx Substance Use: No - SURGICAL HISTORY Hx Surgeries: Yes Hx Vascular Access Device: Yes (LEFT UPPER ARM AV FISTULA) Other/Comment: Stefano Cath, left upper anterior chest - ANESTHESIA Hx Anesthesia: Yes Hx Anesthesia Reactions: No Hx Malignant Hyperthermia: No Has any member of the family had a problem w/ anesthesia?: No Meds Allergies/Adverse Reactions: Allergies Allergy/AdvReac Type Severity Reaction Status Date / Time vancomycin AdvReac Severe RASH Verified 09/21/18 16:10 - Medications Medications: Current Medications Acetaminophen (Tylenol 325mg Tab) 650 mg PO Q6 PRN PRN Reason: Pain, moderate (4-7) Artificial Tears (Artificial Tears) 0 ml OU QID [facility] Last Admin: 09/23/18 09:12 Dose: Not Given Calcium Acetate (Phoslo) 1,334 mg PO TIDCC [facility] Last Admin: 09/23/18 07:38 Dose: 1,334 mg Dorzolamide HCl (Trusopt) 0 ml OU HS [facility] Last Admin: 09/22/18 22:04 Dose: Not Given Hydralazine HCl (Apresoline) 50 mg PO Q8H [facility] Last Admin: 09/23/18 06:02 Dose: 50 mg Levetiracetam (Keppra) 500 mg PO Q12 [facility] Last Admin: 09/23/18 09:12 Dose: Not Given Levothyroxine Sodium (Synthroid) 125 mcg PO DAILY@0630 [facility] Last Admin: 09/23/18 06:00 Dose: 125 mcg Pneumococcal Polyvalent Vaccine (Pneumovax 23 Vaccine) 0.5 ml IM .ONCE ONE Stop: 09/23/18 10:01 Last Admin: 09/23/18 09:12 Dose: Not Given Timolol Maleate (Timoptic 0.5% Ophth Soln) 0 drop OU HS [facility] Last Admin: 09/22/18 22:04 Dose: Not Given Vitamin B Complex/Vit C/Folic Acid (Nephro-Yenny) 1 tab PO 0800 [facility] Last Admin: 09/23/18 07:38 Dose: 1 tab Results - Vital Signs Recent Vital Signs: Last Vital Signs Temp 97.6 F 09/23/18 07:42 Pulse 80 09/23/18 07:42 Resp 20 09/23/18 07:42 BP 139/67 09/23/18 07:42 Pulse Ox 99 09/23/18 07:42 - Labs Result Diagrams: 09/22/18 11:14 09/22/18 11:14 Labs: Laboratory Results - last 24 hr 09/22/18 09/22/18 09/22/18 11:14 11:14 11:14 WBC 6.6 RBC 3.77 L Hgb 10.6 L Hct 31.4 L MCV 83.2 MCH 28.2 MCHC 33.9 RDW 18.8 H Plt Count 183 MPV 7.5 PT 12.8 H INR 1.2 APTT 35.6 H Sodium 137 Potassium 4.6 Chloride 101 Carbon Dioxide 21 L Anion Gap 20 BUN 84 H Creatinine 12.5 H* Est GFR ( Amer) 5 Est GFR (Non-Af Amer) 4 Random Glucose 99 D Calcium 7.7 L Blood Type Antibody Screen 09/22/18 11:14 WBC RBC Hgb Hct MCV MCH MCHC RDW Plt Count MPV PT INR APTT Sodium Potassium Chloride Carbon Dioxide Anion Gap BUN Creatinine Est GFR ( Amer) Est GFR (Non-Af Amer) Random Glucose Calcium Blood Type O POSITIVE Antibody Screen Negative
[2018-09-23] MEDS ORDERED: Pneumococcal 23-Valent Vaccine IM ONE (10:00)
--- NOTE | 2018-09-23 20:24 | CP.PCM.PN ---
Subjective - Date & Time of Evaluation Date of Evaluation: 09/23/18 - Subjective Subjective: patient examined today no nausea no vomiting no dizziness no diarrhea no fever no shortness of breath Objective - Vital Signs/Intake and Output Vital Signs (last 24 hours): Temp Pulse Resp BP Pulse Ox 97.7 F 79 20 153/81 H 98 09/23/18 15:00 09/23/18 15:00 09/23/18 15:00 09/23/18 15:00 09/23/18 15:00 - Medications Medications: Current Medications Acetaminophen (Tylenol 325mg Tab) 650 mg PO Q6 PRN PRN Reason: Pain, moderate (4-7) Artificial Tears (Artificial Tears) 0 ml OU QID [facility] Last Admin: 09/23/18 17:30 Dose: 1 drop Calcium Acetate (Phoslo) 1,334 mg PO TIDCC [facility] Last Admin: 09/23/18 17:30 Dose: 1,334 mg Dorzolamide HCl (Trusopt) 0 ml OU HS [facility] Last Admin: 09/22/18 22:04 Dose: Not Given Heparin Sodium (Porcine) (Heparin (For Dialysis)) 2,000 units IVP TTS [facility] Hydralazine HCl (Apresoline) 50 mg PO Q8H [facility] Last Admin: 09/23/18 12:52 Dose: Not Given Levetiracetam (Keppra) 500 mg PO Q12 [facility] Last Admin: 09/23/18 09:12 Dose: Not Given Levothyroxine Sodium (Synthroid) 125 mcg PO DAILY@0630 [facility] Last Admin: 09/23/18 06:00 Dose: 125 mcg Timolol Maleate (Timoptic 0.5% Oph Soln) 0 drop OU HS [facility] Last Admin: 09/22/18 22:04 Dose: Not Given Vitamin B Complex/Vit C/Folic Acid (Nephro-Evangelina) 1 tab PO 0800 [facility] Last Admin: 09/23/18 07:38 Dose: 1 tab - Labs Labs: 09/22/18 11:14 09/22/18 11:14 PT 12.8 SECONDS (9.7-12.2) H 09/22/18 11:14 INR 1.2 09/22/18 11:14 APTT 35.6 SECONDS (21-34) H 09/22/18 11:14 - Constitutional Appears: Well - Head Exam Head Exam: ATRAUMATIC, NORMAL INSPECTION, NORMOCEPHALIC - Eye Exam Eye Exam: EOMI, Normal appearance, PERRL Pupil Exam: NORMAL ACCOMODATION, PERRL - ENT Exam ENT Exam: Mucous Membranes Moist, Normal Exam - Neck Exam Neck Exam: Full ROM, Normal Inspection. absent: Lymphadenopathy - Respiratory Exam Respiratory Exam: Decreased Breath Sounds - Cardiovascular Exam Cardiovascular Exam: REGULAR RHYTHM, +S1, +S2 - GI/Abdominal Exam GI & Abdominal Exam: Soft, Diminished Bowel Sounds - Rectal Exam Rectal Exam: Deferred - Neurological Exam Neurological Exam: Oriented x3 Assessment and Plan - Assessment and Plan (Free Text) Plan: medications reviewed vitals reviewed labs reviewed plan discussed with patient moderate complexity of care apresoline artificial tears heparin keppra nephro-evangelina phoslo synthroid timoptic trusopt tylenol
[2018-09-23] MEDS: Dorzolamide 2% Opht Sol 10ml OU SCH (22:15)
[2018-09-23 23:28] VITALS: O2SAT 97
[2018-09-24] MEDS: Levothyroxine 125 MCG TAB PO SCH (05:45)
--- NOTE | 2018-09-24 07:30 | CON ---
DATE: 09/23/2018 RENAL CONSULTATION LOCATION: The patient is located in room 361, bed B. REQUESTED BY: Shahida Catherine MD HISTORY OF PRESENT ILLNESS: Mr. Yeung is a 72-year elderly male with a past medical history significant for longstanding hypertension, diabetes, hypothyroidism, seizure disorder, status post right nephrectomy for perinephric abscess, history of right-sided chest tube placement and intraabdominal drains for empyema and also for abdominal abscess; end-stage renal disease, on hemodialysis three times a week for the last 2 years, multiple access problems; and multiple admissions for MSSA sepsis. The patient presented to the emergency room with chief complaints of dislodged Perm-A-Cath and poorly functioning left upper extremity AV fistula. The patient was not able to go to the outpatient intervention radiology service. The patient was advised to go to the hospital by intervention radiology service. The patient denies any chest pain or palpitation. Denies any fever or cough. No abdominal pain. No nausea, vomiting, diarrhea. No edema of the legs. PAST MEDICAL HISTORY: Significant for longstanding hypertension, diabetes, hypothyroidism, seizure disorder, end-stage renal disease, multiple access problems. PAST SURGICAL HISTORY: Multiple [id number], status post removal of the right upper extremity AV graft, status post left upper extremity AV fistula. ALLERGIES: ALLERGIC TO VANCOMYCIN. SOCIAL HISTORY: No smoking. No alcohol. No drugs. FAMILY HISTORY: Not significant. He has a very supportive family and daughter. CURRENT MEDICATIONS: Include as follows: Hydralazine 50 mg p.o. every 8 hours, artificial tears, heparin 2000 units every pre-dialysis, Keppra 500 mg p.o. every 12 hours, Nephro-Yenny 1 tablet daily, PhosLo 667 mg two tablets p.o. t.i.d., Synthroid 125 mcg p.o. daily. REVIEW OF SYSTEMS: Significant for nonfunctioning the Perm-A-Cath and poorly functioning AV fistula. PHYSICAL EXAMINATION: VITAL SIGNS: Blood pressure this morning 141/78, pulse 85, respirations 20, temperature 97.7. Height 5 feet 8 inches and weight is 165 pounds. GENERAL: Mr. Yeung is a 72-year-old elderly male, moderately built, moderately nourished, not in distress. HEENT: Pupils normal, reactive to light and accommodation. Conjunctivae pink. Sclerae anicteric. Tongue is moist. Trachea is midline. LUNGS: Symmetric on both sides. Bilateral breath sounds present. Clear to auscultation. CVS: [place] at the fifth intercostal space midclavicular line. S1, S2 audible. No murmur or gallop. ABDOMEN: Normal in appearance. Soft, tympanitic. No guarding. No rigidity. No hepatosplenomegaly. GRAPHIC COORDINATOR: The patient is alert, awake and oriented x3. Nonfocal neuro examination. Cranial nerves II-XII grossly intact. Sensory and motor system is within normal limits. EXTREMITIES: No cyanosis. No clubbing. No edema. LABORATORY DATA: Include as follows as of 09/21/2018, WBC 7, hemoglobin 11.1, hematocrit 33.1, platelets 164. Sodium 136, potassium is 5, chloride 98, CO2 of 21, BUN 70, creatinine 10.9, glucose 183, calcium 8.1. His other laboratory data include as of 09/22/2018, sodium 137, potassium 4.6, chloride 101, CO2 of 21, BUN 84, creatinine 12.5, glucose 99, calcium 7.7. As of 09/23/2018, hepatitis B surface antigen is negative, surface antibody is negative. ASSESSMENT AND PLAN: In summary, Mr. Yeung is a 72-year-old elderly male with hypertension, diabetes, hypothyroidism, hyperlipidemia, end-stage renal disease, on hemodialysis three times a week, Tuesday, , Tuesday, who was admitted with poorly functioning Perm-A-Cath and dislodged Perm-A-Cath and also poorly functioning arteriovenous fistula, status post removal of the arteriovenous fistula and the patient underwent angioplasty and fistulogram yesterday. 1. End-stage renal disease. Continue hemodialysis three times a week, Tuesday, , Tuesday. Case discussed with Dr. Hartman recommending to keep the patient in the hospital for dialysis today and to try to use arteriovenous fistula, able to cannulate the fistula this morning but it is poorly functioning, blood flow only about 250 mL and as per the registered nurse they were removing the blood clots from the needle this morning. The patient completed 3 hours of hemodialysis, status post hypotension during dialysis and responded to intravenous fluids. Continue to monitor vital signs and we will continue to hold blood pressure medicine for systolic blood pressure less than 130. 2. Status post hypertension. 3. Diabetes. 4. Hypothyroidism. Continue Synthroid. 5. Seizure disorder. Continue Keppra. We will follow with Vascular Surgery. The patient may need new Perm-A-Cath. We will discuss with Dr. Hartman. Thank you for allowing me to participate in your patient's care. The patient was seen and examined during dialysis. Larry Falk MD
[2018-09-24] MEDS: Multivitamin Vitamin B Complex (Nephro-Vite) Tab PO SCH (07:44)
[2018-09-24 08:58] VITALS: BP 143/76; PULSE 84; TEMP 97.8
[2018-09-24] MEDS: Aritificial Tears (15ml) OU SCH ×2 (09:49→13:40)
--- NOTE | 2018-09-24 14:00 | CP.PCM.PN ---
Subjective - Date & Time of Evaluation Date of Evaluation: 09/24/18 Time of Evaluation: 14:00 - Subjective Subjective: pt is seen and examined follow up consult is dictated#[id number] for d/c home today Objective - Vital Signs/Intake and Output Vital Signs (last 24 hours): Temp Pulse Resp BP Pulse Ox 97.8 F 84 20 143/76 97 09/24/18 08:57 09/24/18 08:57 09/24/18 08:57 09/24/18 08:57 09/24/18 08:57 Intake and Output: 09/24/18 09/24/18 06:59 18:59 Intake Total 300 500 Balance 300 500 - Medications Medications: Current Medications Acetaminophen (Tylenol 325mg Tab) 650 mg PO Q6 PRN PRN Reason: Pain, moderate (4-7) Artificial Tears (Artificial Tears) 0 ml OU QID [facility] Last Admin: 09/24/18 13:40 Dose: 1 drop Calcium Acetate (Phoslo) 1,334 mg PO TIDCC [facility] Last Admin: 09/24/18 12:31 Dose: 1,334 mg Dorzolamide HCl (Trusopt) 0 ml OU HS [facility] Last Admin: 09/23/18 22:15 Dose: 1 drop Heparin Sodium (Porcine) (Heparin (For Dialysis)) 2,000 units IVP TTS [facility] Hydralazine HCl (Apresoline) 50 mg PO Q8H [facility] Last Admin: 09/24/18 12:47 Dose: 50 mg Levetiracetam (Keppra) 500 mg PO Q12 [facility] Last Admin: 09/24/18 09:49 Dose: 500 mg Levothyroxine Sodium (Synthroid) 125 mcg PO DAILY@0630 [facility] Last Admin: 09/24/18 05:45 Dose: 125 mcg Timolol Maleate (Timoptic 0.5% Ophth Soln) 0 drop OU HS [facility] Last Admin: 09/23/18 22:10 Dose: 1 drop Vitamin B Complex/Vit C/Folic Acid (Nephro-Yenny) 1 tab PO 0800 [facility] Last Admin: 09/24/18 07:44 Dose: 1 tab - Labs Labs: 09/22/18 11:14 09/22/18 11:14 PT 12.8 SECONDS (9.7-12.2) H 09/22/18 11:14 INR 1.2 09/22/18 11:14 APTT 35.6 SECONDS (21-34) H 09/22/18 11:14
--- NOTE | 2018-09-25 00:38 | PN ---
DATE: 09/24/2018 FOLLOWUP RENAL CONSULTATION LOCATION: The patient is located in room 361, bed B. REQUESTED BY: Shahida Catherine MD REASON FOR FOLLOWUP: End-stage renal disease, continuation of hemodialysis. HISTORY OF PRESENT ILLNESS: Mr. Yeung is a 72-year-old elderly male with a past medical history significant for longstanding hypertension, diabetes, end-stage renal disease, on hemodialysis three times a week, Tuesday, , and Tuesday with multiple access problems, seizure disorder, hypothyroidism who was admitted with dislodged PermCath and poorly functioning left upper extremity AV fistula. The patient was evaluated by the vascular surgeon, Dr. Hartman, in the ER and the right femoral vein catheter was removed, and the patient was admitted and underwent angiogram and angioplasty of the left upper extremity AV fistula. The patient underwent hemodialysis yesterday and poorly functioning fistula with drying blood clots from the AV fistula needle by the dialysis nurse. The patient underwent hemodialysis. No chest pain, no palpitation. No fever, no cough. No abdominal pain. No nausea, no vomiting. Status post hypotension during hemodialysis, responded to fluid challenge. PHYSICAL EXAMINATION: VITAL SIGNS: This morning as follows: Blood pressure 143/76, pulse 84, respirations 20, temperature 97.8, saturation 97%. Height 5 feet 8 inches and weight is 165 pounds. HEENT: Mr. Yeung is a 72-year-old elderly male, moderately built, moderately nourished, not in acute distress. HEENT: Pupils normal and reactive to light and accommodation. Conjunctivae pink. Sclerae anicteric. Tongue is moist. Trachea is midline. LUNGS: Symmetric on both sides. Bilateral breath sounds present. Clear to auscultation. CARDIOVASCULAR SYSTEM: [place] at the fifth intercostal space midclavicular line. S1, S2 audible. No murmur or gallop. ABDOMEN: Normal in appearance. Soft, tympanitic. No guarding. No rigidity. No hepatosplenomegaly. CENTRAL NERVOUS SYSTEM: The patient is alert, awake, oriented x3. Nonfocal neuro examination. Cranial nerves II through XII grossly intact. Sensory and motor system is within normal limits. EXTREMITIES: No cyanosis, no clubbing, no edema. CURRENT MEDICATIONS: Include as follows: Tylenol, Artificial Tears, PhosLo 667 mg 2 tablets t.i.d., Trusopt eyedrops, heparin 2000 units three times a week during dialysis, Keppra 400 mg p.o. every 12 hours, Synthroid 125 mcg p.o. daily, timolol eye drops, also Nephro-Yenny 1 tablet p.o. daily. LABORATORY DATA: No new labs available. As of 09/22/2018, WBC 6.6, hemoglobin 10.6, hematocrit is 31.4, platelets 183. Sodium 137, potassium 4.6, chloride 101, CO2 of 21, BUN 84, creatinine 12.5, glucose 99. ASSESSMENT AND PLAN: In summary, Mr. Yeung is a 72-year-old elderly male with a history of longstanding hypertension, diabetes, end-stage renal disease, hypothyroidism, seizure disorder, multiple access problem who was admitted with dislodged PermCath, unable to use it, status post angioplasty of the left upper extremity arteriovenous fistula with poorly functioning fistula and poor blood flow with drying blood clots from the arteriovenous fistula. 1. End-stage renal disease. Continue hemodialysis three times a week, Tuesday, , Tuesday. 2. Hypertension. 3. Diabetes. 4. Hypothyroidism 5. Seizure disorder. Continue Synthroid and Keppra. Continue all his other medications for possible discharge today, and we will try to continue to use arteriovenous fistula on Tuesday. We will follow with you. Thank you for allowing me to participate in your patient's care. The patient agreed for the plan. Larry Falk MD
== END 2018-09-24 14:50 | disposition home or self-care (01) | DRG 252 ==
LOC: C.ER 16:02 → C.9E 18:17 → C.3T 19:03
PROVIDERS: ADMIT Internal Medicine Nephrology; ATTEND Internal Medicine Nephrology
PROC: 057 Upper Veins, Dilation (ICD-10-PCS; principal; 2018-09-23)
PROC: B51WYZZ Fluoroscopy of Dialysis Shunt/Fistula using Other Contrast (ICD-10-PCS; 2018-09-23)
PROC: 5A1D70Z Performance of Urinary Filtration, Intermittent, Less than 6 Hours Per Day (ICD-10-PCS; 2018-09-23)
DX: T82.590A Other mechanical complication of surgically created arteriovenous fistula, initial encounter (principal); N18.6 End stage renal disease; I87.1 Compression of vein; T82.42XA Displacement of vascular dialysis catheter, initial encounter; I12.0 Hypertensive chronic kidney disease with stage 5 chronic kidney disease or end stage renal disease; E03.9 Hypothyroidism, unspecified; E11.22 Type 2 diabetes mellitus with diabetic chronic kidney disease; E78.5 Hyperlipidemia, unspecified; G40.909 Epilepsy, unspecified, not intractable, without status epilepticus; Y71.2 Prosthetic and other implants, materials and accessory cardiovascular devices associated with adverse incidents; Z90.5 Acquired absence of kidney; Z86.14 Personal history of Methicillin resistant Staphylococcus aureus infection; Z99.2 Dependence on renal dialysis